=== PATIENT | male | born 1950 ===

== ENCOUNTER 2025-02-21 20:32 | Inpatient (IN) | payer MEDICARE, OTHER, SELFPAY ==
[2025-02-21] VITALS (7 sets, daily range): BP systolic 92–102; BP diastolic 62–82; BMI 29.4
[2025-02-21 20:57] LABS: Hematocrit 45.1 % (39.0-52.0); Hemoglobin 14.4 g/dL (13.0-18.0); Mean Corp Hgb Conc. 31.9 g/dL (33.0-37.0); Mean Corpuscular Volume 103.7 fL (80.0-94.0); Nucleated Red Blood Cells % 0 % (-); Platelet Count 260 10^3/uL (130-400); Red Cell Dist. Width 14.0 % (11.5-14.5)
[2025-02-21 21:01] LABS: INR 1.48; PT 18.2 Sec (11.4-14.6)
[2025-02-21 21:02] LABS: APTT 45.6 Sec (23.4-35.0)
[2025-02-21 21:17] LABS: ALT (SGPT) 55 U/L (0-50); AST (SGOT) 69 U/L (17-59); Albumin 4.1 g/dl (3.5-5.0); Alkaline Phosphatase 78 U/L (38-126); Blood Urea Nitrogen 28 mg/dl (9-20); Calcium 9.2 mg/dl (8.4-10.2); Carbon Dioxide 22 mmol/L (22-30); Chloride 110 mmol/L (98-107); Estimated Creatinine Clearance 59 ml/min; Glucose 127 mg/dl (70-99); HDL Cholesterol 46 mg/dl; Iron 64 ug/dl (49-181); LDL Cholesterol, Calculated 52 mg/dl; Magnesium 2.2 mg/dl (1.6-2.3); Potassium 4.7 mmol/L (3.5-5.1); Sodium 141 mmol/L (135-145); Total Protein 7.0 g/dl (6.3-8.2); Very Low Density Lipoprotein 17 mg/dl (0-30); eGFR > 60.00
[2025-02-21 21:26] LABS: Total Iron Binding Capacity 420 ug/dl (261-462)
[2025-02-21 21:51] LABS: Ferritin 64.3 ng/ml (17.9-464.0)
[2025-02-21] MEDS: CARDIZEM 125 IV (22:15)
[2025-02-21] MEDS: HEPARIN 25000 UNITS/250 ML IV (23:18)
--- NOTE | 2025-02-21 23:28 | PTCARENOTE ---
pt arrived into room 1 via EMS transfer from [facility] at approx 2030. Admission questions and med rec completed. pt oriented to room and call shaw. pt placed on tele monitor, Afib w/ HR 90's-110's. On cardizem gtt infusing at 5 mg/min. Current BP
99/72. pt denies any CP at this time. pt BECERRA w/ dry, frequent cough. On RA sating 100%. Ed Radha, CVPA made aware of pt in room. CVPA ordered Heparin gtt, initial rate infusing at 1000 units/hr--see JUN. Afib packet and education provided to pt
and spouse. SCD's applied to pt per order. Encouraged pt to call RN with any questions/concerns and for assistance ambulating; pt verbalizes understanding. Call shaw within reach.
[2025-02-22] VITALS (20 sets, daily range): BP systolic 92–120; BP diastolic 46–84; BMI 29.3
[2025-02-22 00:33] LABS: Urine Character Clear (Clear)
[2025-02-22 00:48] LABS: Urine Red Blood Cell 0-2 /HPF (0-2); Urine White Cell 0-2 /HPF (0-5)
[2025-02-22 00:49] LABS: Urine Squamous Cell 0-2 /LPF (Few)
[2025-02-22] MEDS: SYNTHROID 50 MCG PO (05:52)
[2025-02-22 06:06] LABS: APTT 130.4 Sec (23.4-35.0)
[2025-02-22 06:08] LABS: Hematocrit 40.8 % (39.0-52.0); Hemoglobin 13.4 g/dL (13.0-18.0); Mean Corp Hgb Conc. 32.8 g/dL (33.0-37.0); Mean Corpuscular Volume 101.2 fL (80.0-94.0); Platelet Count 239 10^3/uL (130-400); Red Cell Dist. Width 13.9 % (11.5-14.5)
[2025-02-22 06:25] LABS: ALT (SGPT) 53 U/L (0-50); AST (SGOT) 56 U/L (17-59); Albumin 3.7 g/dl (3.5-5.0); Alkaline Phosphatase 81 U/L (38-126); Blood Urea Nitrogen 27 mg/dl (9-20); Calcium 8.7 mg/dl (8.4-10.2); Carbon Dioxide 21 mmol/L (22-30); Chloride 112 mmol/L (98-107); Estimated Creatinine Clearance 65 ml/min; Glucose 114 mg/dl (70-99); Magnesium 2.0 mg/dl (1.6-2.3); Potassium 4.3 mmol/L (3.5-5.1); Sodium 141 mmol/L (135-145); Total Protein 6.4 g/dl (6.3-8.2); eGFR > 60.00
[2025-02-22] MEDS: FLUSH (NSS) 1 FLUSH IV (07:48)
[2025-02-22] MEDS: PROTONIX 40 MG PO (07:48)
[2025-02-22] MEDS: ASPIR LOW (ENTERIC COATED) 81 MG PO (07:48)
--- NOTE | 2025-02-22 07:50 | PTCARENOTE ---
The patient is aaox3, his vital signs are stable. Afib is noted on the monitor with HR fluctuating between 80s and 113. Heparin gtt is running at 900 units/hr. His diltiazem gtt is running at 10mg/hr. He has no complaints however he is visibly
dyspneic at rest. His RR is 38. He has scattered crackles BL 1/[address] up. He has a frequent dry cough. His , who is a retired RN, states that his breathing is much better than it was when he first arrived at [facility].
--- NOTE | 2025-02-22 08:12 | PTCARENOTE ---
HR's in the 100s, diltiazem gtt increased to 15mg/hr.
[2025-02-22] MEDS: LUMINAL 64.8 MG PO ×2 (08:47→20:18)
[2025-02-22 09:40] LABS: Glycohemoglobin (HgbA1c) 5.8 % (4.0-5.9)
--- NOTE | 2025-02-22 10:59 | CON.CAR ---
Addendum entered and electronically signed by Miki Saals MD 02/22/25 14:37:
I saw and evaluated the patient, and I provided the substantive portion of the medical decision making.
I reviewed and agree with the note by Ms Fuchs and it accurately reflects our care.
I personally performed the medical decision making of the this encounter and my assessment and plan is below:
Bicuspid AV mod to severe stenosis w/ possible endocarditis
- CTS consulted
- MERCEDES Monday for further eval
- ID consulted
HFpEF
- IV diuresis
AF
- rate control for now
- heparin gtt
Original Note:
Consultation
Consultation Request
Date/Time Consultation Requested: 02/22/2025 0800
Date/Time Consultation Performed: 02/22/2025 1100
Requesting Provider: Dr. Patel
Performing Provider: Dr. Salas
Reason for Consultation: enodcarditis
Medical History
-
History of Present Illness:
74-year-old male with COPD who developed weeks of progressive shortness of breath and cough. He was placed on outpatient antibiotics for concern for pneumonia. He was admitted to [facility] on February 20 with new onset atrial fibrillation with
RVR and CHF. MERCEDES was performed in preparation for cardioversion. He was noted to have a small mobile echodensity on the aortic valve with mod-severe aortic stenosis. He is now transferred to [facility].
Past Medical History
Past Medical History: Other (COPD, hypothyroidism, history of seizure disorder)
Social History
Tobacco: Former Smoker
Alcohol: None
Allergies / Home Medications
Allergy/AdvReac Type Severity Reaction Status Date / Time
No Known Allergies Allergy Unverified 02/21/25 14:54
�Medication �Instructions �Recorded �Confirmed �Type
albuterol 90 mcg/actuation aerosol 90 mcg inhalation Q4H SOB 02/21/25 02/21/25 History
inhaler
aspirin 81 mg tablet 81 mg PO DAILY 02/21/25 02/21/25 History
levothyroxine 50 mcg tablet 50 mcg PO DAILY 02/21/25 02/21/25 History
phenobarbital 64.8 mg tablet 64.8 mg PO BID 02/21/25 02/21/25 History
Physical Exam
Vital Signs
Temp Pulse Resp BP Pulse Ox
97.4 F 109 34 116/80 96
02/22/25 07:20 02/22/25 07:20 02/22/25 08:07 02/22/25 07:19 02/22/25 08:14
Lab Results
02/22/25 05:42
02/22/25 05:42
Physical Exam
General: Well Developed, Well Nourished and No Apparent Distress
Respiratory: Clear (decreased bases )
Cardiac: S1/S2 and Irregular Rhythm
Breast: Deferred by me
GI: Soft, Non Distended and Normal Bowel Sounds
Musculoskeletal: No Edema
Skin: Warm and Dry
Neuro: AO x 3
Impression / Plan
-
Mod-severe with echo density on MERCEDES:
-bicuspid valve
-continue work up
-CTS following
New AF RVR:
-initial plan was for cardioversion. Given AV issues it was not performed.
-Prior to transfer pt, Lovenox and warfarin ( CHADSVASC at least 2 ) as interactions with phenobarbital and other anticoagulants.
-now on IV heparin, IV dilitazem
Acute HFpEF:
-in setting of severe and AF RVR
-pt did receive IV lasix
COPD:
-former smoker
-Recent treatment with doxycycline for PNA
Data Reviewed
-
EKG: Tracing Personally Visualized and interpreted (EKG 02/22/25 AF 99 bpm, inferior infarct.)
Medical Tests (Nuc Med, Echo etc): Report Reviewed by me (Echo 02/21/25 LV mildly reduced EF 45-50%, mild MR,mild TR, AV bicuspid, severe , mild-mod AR, highly calcified echo density attached to valve. ) and Other (MERCEDES 02/21/25 No thrombus,
suggestion of rounded mobile echo density attached to AV , valve is severely restricted )
Labs: Labs Reviewed by me, Discussed with Physician and Discussed with Family
Old Records: Reviewed ([facility] records summarized as above. )
[2025-02-22] MEDS: CARDIZEM 125 IV ×2 (11:05→20:06)
--- NOTE | 2025-02-22 11:38 | CON.ID ---
Consultation
-
Date/Time Consultation Requested: 02/22/25 9:24
Date/Time Consultation Performed: 02/22/25 11:38
Requesting Provider: Benson IRWIN
Performing Provider: Dr Archer
Reason for Consultation: suspected AV endocarditis
Chief Complaint / Past History
Chief Complaint
valvular vegetation
History of Present Illness
Mr Lowery is a 74 year old male with COPD with several weeks of progressive shortness of breath and cough previously productive of scan white sputum now nonproductive. Reports that cough has been ongoing for about 3 weeks and is notably improved at
this time. He was started on doxycycline for possible pneumonia which he took for one day. He then presented to [facility] for palpitations found to have rapid heart rate and new Afib with RVR and chf. He reports no fevers, chills,
night sweats, or weight loss. At [facility] wbc count 8.9 with 75% neutrophils. CXR with opacity in the right base, possibly an infiltrate, small bilateral pleural effusions MERCEDES/CV was planned and showed a rounded mobile echodensity attached
to the aortic valve and valve restriction. No cardioversion was done. Three sets of blood cultures were ordered. Doxycycline was initially continued. Infectious Disease Dr Manuel saw the patient and stated low concern for endocarditis as no
systemic symptoms and recommended weekly blood cultures x3 to be done outpatient. He was not started on any other antibiotics
Since arrival here patient has been afebrile, BP overall stable, wbc 10.3, hgb 14.4, plt 260, no left shift, neutrophils 52%, cr initially 1.1 now 1.0, lactic acid 2.2, t bili 1.0, d bili 0.5, ast 69 and alt 55, ua without pyuria, blood cultures x2
are in progress, he has not received any antibiotics, ID is consulted for assistance with management.
Past History
Additional Past Medical History:
COPD, hypothyroidism, history of seizure disorder
Allergy History:
No Known Allergies Allergy (Unverified 02/21/25 14:54)
Social History
Tobacco: Former Smoker
Alcohol: Occasional
Employment: Employed
Family History
Family History: Not Pertinent
Review of Systems
Review of Systems
as per hpi
Vital Signs
Temp Pulse Resp BP Pulse Ox
97.4 F 109 34 116/80 96
02/22/25 07:20 02/22/25 07:20 02/22/25 08:07 02/22/25 07:19 02/22/25 08:14
Physical Exam
Physical Exam
Constitutional: No Acute Distress
Cardiovascular: Regular Rate and S1/S2; Negative Murmur or Rub
Pulmonary: Clear and Symmetric; Negative Wheezes, Rales or Rhonchi
Gastrointestinal: Soft, Non Tender, Non Distended and Normal Bowel Sounds
Extremities: Negative Splinter Hemorrhage or [place]ay Lesions
Skin: Warm and Dry; Negative Rash or Jaundice
Lab / Diagnostic Study Results
02/22/25 05:42
02/22/25 05:42
Abs Immat Gran (auto) 0.0 10^3/uL (0-0.05) 02/21/25 20:44
Absolute Neuts (auto) 5.4 10^3/uL (1.4-6.5) 02/21/25 20:44
Absolute Lymphs (auto) 3.1 10^3/uL (1.2-3.4) 02/21/25 20:44
Absolute Monos (auto) 1.7 10^3/uL (0.1-0.6) H 02/21/25 20:44
Absolute Basos (auto) 0.1 10^3/uL (0-0.2) 02/21/25 20:44
Immature Gran % 0.3 % (0-0.5) 02/21/25 20:44
Neutrophils % 52.2 % (42.2-75.2) 02/21/25 20:44
Lymphocytes % 30.4 % (20.5-51.1) 02/21/25 20:44
Monocytes % 16.2 % (1.7-9.3) H 02/21/25 20:44
Eosinophils % 0.2 % (0-6) 02/21/25 20:44
Basophils % 0.7 % (0-2) 02/21/25 20:44
PT 18.2 Sec (11.4-14.6) H 02/21/25 20:44
INR 1.48 02/21/25 20:44
Lactic Acid 2.2 mmol/L (0.7-2.0) H 02/22/25 05:42
Urine WBC 0-2 /HPF (0-5) 02/22/25 00:12
Ur Squamous Epith Cells 0-2 /LPF (Few) 02/22/25 00:12
Microbiology Results
Micro:
02/22/25 10:16 Blood Culture - Pending
Blood/Venous
02/22/25 09:37 Blood Culture - Pending
Blood/Venous
02/21/25 21:25 MRSA Screen - Pending
Nose
Assessment / Plan
Possible endocarditis
- blood cultures x2 sets are in progress, he did have recent doxycycline
- blood cultures were also done at [facility]
- overall history is less concerning for an infectious process,
- start vancomycin and ceftriaxone pending the cultures
- will follow up CT surgery plans
[2025-02-22 13:19] LABS: APTT 107.7 Sec (23.4-35.0)
--- NOTE | 2025-02-22 14:06 | HPS.HSE ---
Family Physician
-
Family Physician: Jannet Botello
Chief Complaint
-
transfer for evaluation of aortic valve surgery
History of Present Illness
Zev Lowery is a 74 year old male with past medical history significant for COPD, hypothyroidism and seizure disorder, initially experienced increasing shortness of breath and cough for approximately 3 weeks. He was seen by his primary
care provider and prescribed doxycycline. He took approximately a day and a half worth of medication prior to admission for new onset palpitations and worsening shortness of breath. Denied fever or chills. He was admitted to [facility]
on 02/20/25 and found to have new onset atrial fibrillation with rapid ventricular response and heart failure (BNP 768/trop 34-c/w demand ischemia). A MERCEDES was performed on 02/21/25 in anticipation of cardioversion and a mobile echodensity was
noted on the aortic valve (LCC) and planned cardioversion was aborted. IV Cardizem started for rate control and blood cultures drawn. Patient transferred to [facility] in the evening of 02/21/25 for aortic valve surgery evaluation. Patient currently
sitting in bed and mildly dyspneic with conversation. On system review, patient reports approx 3 month history of 'things sticking' when swallowing.
Pertinent negatives: Denies CVA/TIA, liver disease, GERD, chest surgery/radiation, kidney disease, DVT/PE, LE vein stripping, cancers
Medical History
Past Medical History
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
BPH; mild hearing loss)
Past Surgical History: Reports None
Social History
Tobacco: Former Smoker (quit 37 years ago)
Alcohol: Occasional
Drug: None
Personal:
Living: With Family
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
Family History
Family History: Not pertinent
Allergies / Home Medications
Allergies reflects when Allergies were last updated in [facility].
Home Medications with original date entered in [facility]
Allergy/Medication List:
Allergies
Allergy/AdvReac Type Severity Reaction Status Date / Time
penicillin G Allergy Unknown Unknown Verified 02/22/25 14:15
Home Medications
�Medication �Instructions �Recorded
albuterol 90 mcg/actuation aerosol 90 mcg inhalation Q4H SOB 02/21/25
inhaler
aspirin 81 mg tablet 81 mg PO DAILY 02/21/25
levothyroxine 50 mcg tablet 50 mcg PO DAILY 02/21/25
phenobarbital 64.8 mg tablet 64.8 mg PO BID 02/21/25
Review of Systems
-
History Source: Patient
A 12 point ROS was completed and negative except as noted: Yes
Constitutional: Reports No Symptoms
EENT: Reports Other (Gamez's Palsey-Left; occasional dysphagia)
Respiratory: Reports Trouble Breathing (approx 3 weeks)
Cardiac: Reports No Symptoms
Abdomen/GI: Reports No Symptoms
: Reports No Symptoms
Musculoskeletal: Reports No Symptoms
Skin: Reports No Symptoms
Neurological: Reports No Symptoms
Endocrine: Reports No Symptoms
Hematologic/Lymphatic: Reports No Symptoms
Psych: Reports Calm
Physical Exam
Vital Signs
Vital Signs
Temp Pulse Resp BP Pulse Ox
97.5 F 73 36 96/77 91
02/22/25 11:51 02/22/25 11:51 02/22/25 11:51 02/22/25 11:51 02/22/25 11:51
Physical Exam
General: Well Developed and Well Nourished
HEENT: NormoCephalic, Anicteric, Moist mucous membranes, Atraumatic, Good Dentition, PERRLA, [place] Conjunctivae, Nose Appears Normal, Ears Appear Normal and Hearing Impaired (hearing loss)
Respiratory: Decreased Breath Sounds (R>L base)
Cardiac: S1/S2 and Irregular Rhythm
Breast: N/A
GI: Soft, Non Tender, Non Distended, Normal Bowel Sounds, No Hepatosplenomegaly and No Hernias
Rectal: Deferred by Provider
Genito-urinary: Deferred by me
Musculoskeletal: No Clubbing, No Cyanosis and No Edema
Skin: Warm and Dry
Neuro: AO x 3 and Facial Droop (chronic mild left w/ left mild lid ptosis)
Hematologic/Lymphatic: No Lymphadenopathy
Psych: Calm and Intact Judgment/Insight
Laboratory Results
-
02/22/25 05:42
02/22/25 05:42
Laboratory Results
PT 18.2 Sec (11.4-14.6) H 02/21/25 20:44
INR 1.48 02/21/25 20:44
APTT 107.7 Sec (23.4-35.0) H 02/22/25 12:45
Lactic Acid 2.2 mmol/L (0.7-2.0) H 02/22/25 05:42
Total Bilirubin 1.0 mg/dl (0.2-1.3) 02/22/25 05:42
AST 56 U/L (17-59) 02/22/25 05:42
ALT 53 U/L (0-50) H 02/22/25 05:42
Alkaline Phosphatase 81 U/L (38-126) 02/22/25 05:42
Data Reviewed
-
Diagnostic Radiology: Report Reviewed by me and Discussed with Physician
CT Scan: Report Reviewed by me and Discussed with Physician
Medical Tests (Nuc Med, Echo, EKG etc): Report Reviewed by me and Discussed with Physician
Lab Data: Labs Reviewed by me and Discussed with Physician
[facility]
Impression/Plan
-
IMPRESSION: 74 year old male with new onset atrial fibrillation and incidental finding of aortic valve mobile density on pre-cardioversion MERCEDES
PLAN:
# Aortic valve mass
- Dr Patel spoke with patient/ regarding proposed AVR, [place], left atrial appendage clip this coming week pending review of diagnostics
- cardiology consult
- MERCEDES Monday
- CTA chest
- ID consult
- blood cultures
- empiric Vanco/Ceftriaxone
- initial lactate 2.2>repeat
-trend WBC/temp trend
# New onset atrial fibrillation
CHADs-VSc score: 2�points. Stroke risk was 2.2% per year in >90,000 patients (the [place] Atrial Fibrillation Cohort Study) and 2.9% risk of stroke/TIA/systemic embolism.
- rate control with IV cardizem
- IV Heparin
# Pleural effusion
- Lasix 40mg IV now
- trend CXR/O2 requirements
# COPD/former tobacco (quit 37 yrs ago)
- does not follow with a office director
- not on inhalers/Home O2
# Hx [place] palsey
- known mild left facial droop/lid ptosis-stable
# Seizure disorder
- continue home phenobarbital
# Hypothyroidism
- continue home levothyroxine
- check baseline TSH in AM
[2025-02-22] MEDS: FLUSH (NSS) 2 FLUSH IV ×3 (15:01→18:19)
[2025-02-22] MEDS: LASIX 40 MG IV (15:01)
[2025-02-22] MEDS: STERILE WATER FOR INJECTION 20 ML IV (15:08)
[2025-02-22] MEDS: ROCEPHIN 2000 MG IV (15:08)
[2025-02-22] MEDS: VANCOCIN 540 MG IV (18:19)
[2025-02-22 18:51] LABS: APTT 100.2 Sec (23.4-35.0)
--- NOTE | 2025-02-22 19:21 | PHA.VAN.IN ---
Assessment
- Assessment
Renal Function: Unknown baseline
Maximum Temperature: 97.7
Minimum Temperature: 97.4
Concomitant Antimicrobials: ceftriaxone 2 g q12
AUC Dosing Plan
- Dosing Variables
Dosing Weight (kg): 89.8
Dosing CrCl (ml/min): 65
Vd coefficient (L/kg): 0.7
- Empiric Dosing
Initial / Loading Dose: 2000mg 02/22 18:19
Maintenance Regimen: vanc 1000mg q12
Estimated AUC (mcg*h/mL): 561
Estimated Peak (mcg*h/mL): 31.6
Estimated Trough (mcg/ml): 16.6
Estimated Half Life (H): 11.9
- Monitoring
No levels ordered at this time: consider in the upcoming days
Pharmacokinetics Vancomycin I
- -
Patient Age: 74
Patient Sex: Male
Vancomycin Day #: 1
Indication: Endocarditis
Requesting Provider: Dr Archer
Pertinent Antimicrobial Allergies:
Allergies
penicillin G Allergy (Unknown, Verified 02/22/25 14:15)Unknown told was allergic as a child
Height / Weight:
Height 5 ft 9 in
Actual Weight 89.8 kg
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
- Vital Signs / Lab Results
Temp Pulse Resp BP Pulse Ox
97.7 F 102 30 113/52 95
02/22/25 15:13 02/22/25 19:00 02/22/25 15:13 02/22/25 18:19 02/22/25 15:13
Lab Results - Hematology
02/21/25 02/22/25
20:44 05:42
WBC 10.3 10.5
Lab Results - Chemistry
02/21/25 02/22/25
20:44 05:42
BUN 28 H 27 H
Creatinine 1.1 1.0
Estimated Creat Clear 59 65
Albumin 4.1 3.7
02/22/25 02/22/25
05:42 18:30
Lactic Acid 2.2 H 2.7 H
Lab Results - Urine
02/22/25
00:12
Urine Nitrite Negative
Ur Leukocyte Esterase Negative
Urine WBC 0-2
Ur Squamous Epith Cells 0-2
Urine Bacteria Few A
[2025-02-23] VITALS (7 sets, daily range): BP systolic 100–125; BP diastolic 59–90; BMI 29.3
[2025-02-23] MEDS: HEPARIN 25000 UNITS/250 ML IV (03:05)
[2025-02-23] MEDS: ROCEPHIN 2000 MG IV ×2 (03:29→16:07)
[2025-02-23] MEDS: STERILE WATER FOR INJECTION 20 ML IV ×2 (03:29→16:08)
[2025-02-23 03:37] LABS: Hematocrit 38.4 % (39.0-52.0); Hemoglobin 13.2 g/dL (13.0-18.0); Mean Corp Hgb Conc. 34.4 g/dL (33.0-37.0); Mean Corpuscular Volume 98.5 fL (80.0-94.0); Platelet Count 243 10^3/uL (130-400); Red Cell Dist. Width 13.6 % (11.5-14.5)
[2025-02-23 03:51] LABS: APTT 94.0 Sec (23.4-35.0)
[2025-02-23 03:59] LABS: Blood Urea Nitrogen 21 mg/dl (9-20); Calcium 8.6 mg/dl (8.4-10.2); Carbon Dioxide 23 mmol/L (22-30); Chloride 110 mmol/L (98-107); Estimated Creatinine Clearance 72 ml/min; Glucose 118 mg/dl (70-99); Magnesium 2.1 mg/dl (1.6-2.3); Potassium 3.8 mmol/L (3.5-5.1); Sodium 138 mmol/L (135-145); eGFR > 60.00
[2025-02-23] MEDS: CARDIZEM 125 IV (04:23)
[2025-02-23 04:33] LABS: TSH 3.07 uIU/ml (0.47-4.68)
--- NOTE | 2025-02-23 04:33 | PTCARENOTE ---
Pt AAOx3 and OSAGE bilaterally. Tele remains Afib w/ occasional PVCs. HR in the 80's at rest. IV Cardizem gtt infusing at 15ml/hr. IV Heparin gtt infusing at 900 units/hr. PTT remains therapeutic. Denies any pain or discomfort. RR in the 30's, pt
tachypnea. He denies SOB...pulse ox sating 93-95% RA. Has freq FINGER BUFF SEWER cough. Aware of POC. Call shaw in reach.
[2025-02-23] MEDS: KCL 20 MEQ PO ×2 (04:45→21:58)
[2025-02-23] MEDS: SYNTHROID 50 MCG PO (04:45)
--- NOTE | 2025-02-23 04:58 | W.PN.CT ---
Today's Communication / Plan
-
Plan:
-Ongoing preop workup
-Cont. current meds ( ASA, Heparin gtt, Cardizem gtt, Synthroid, Phenobarbital)
-Cont. antibiotics per ID, currently on Vancomycin and Rocephin, f/u blood cultures
-Repeat MERCEDES tomorrow 02/24/25
Assessment / Plan
-
Assessment:
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
-New onset A-fib with RVR
-Hx TIA/CVA
-Seizure disorder
-Hypothyroidism
-COPD
-Former tobacco use (quit 37 years ago)
-DVT/PE
-Transaminitis
-GERD
-S/P LE vein stripping
Discussed patient care with: Cardiology, Nursing, Respiratory Therapy, Pharmacy and Care Team
Subjective
-
Date of Service: February 23, 2025
Pt c/o mild SOB overnight. Denies CP
Objective Data
-
Lab Results
02/23/25 03:24
02/23/25 03:24
PT 18.2 Sec (11.4-14.6) H 02/21/25 20:44
INR 1.48 02/21/25 20:44
APTT 94.0 Sec (23.4-35.0) H 02/23/25 03:24
Vital Signs
Vital Signs
Temp Pulse Resp BP Pulse Ox
97.5 F 86 34 102/59 95
02/23/25 03:08 02/23/25 03:10 02/23/25 03:08 02/23/25 03:10 02/23/25 03:08
CT Intake/Output/Weight
02/22/25 02/22/25 02/23/25
06:59 18:59 06:59
Intake Total 720 / 720 1188 / 1188
Output Total 400 / 400 1065 / 1515 450 / 1515
Balance 320 / 320 -1065 / -327 738 / -327
SaO2: 95 (RA)
Physical Exam
-
General: Awake, Oriented and AOx3
Cardiovascular: Regular rate & rhythm, Murmur (3/6 systolic), No Rub and No Gallop
Respiratory: Decreased Breath Sounds (at bases, otherwise clear )
Sternum: Stable
Incision: Clean, Dry and Intact
Extremities: Other (+trace edema)
Data Reviewed
-
Lab Results: Results Reviewed
Medications: Active Meds Reviewed
Chest X-Ray: Report Reviewed and Image Reviewed
ECG: Report Reviewed and Image Reviewed
[2025-02-23] MEDS: VANCOCIN 200 IV ×2 (05:21→17:41)
[2025-02-23 05:24] LABS: ALT (SGPT) 49 U/L (0-50); AST (SGOT) 41 U/L (17-59); Albumin 3.6 g/dl (3.5-5.0); Alkaline Phosphatase 87 U/L (38-126); Total Protein 6.5 g/dl (6.3-8.2)
[2025-02-23] MEDS: PROTONIX 40 MG PO (09:08)
[2025-02-23] MEDS: LUMINAL 64.8 MG PO ×2 (09:09→19:42)
[2025-02-23] MEDS: ASPIR LOW (ENTERIC COATED) 81 MG PO (09:09)
[2025-02-23] MEDS: LASIX 40 MG IV (09:41)
[2025-02-23] MEDS: FLUSH (NSS) 1 FLUSH IV ×2 (09:41→16:08)
--- NOTE | 2025-02-23 11:21 | PTCARENOTE ---
received patient this am in bed, monitor shows Afib, HR in the 80's. BP stable, voices no complaints. IV Cardizem @ 15cc/hr via left ac and IV heparin @ 900 units/hr via right forearm without difficulties. lung gill diminished with freq. dry
cough, stated he has always had that. on RA , o2 sat 94%. lasix 40mg IV given as ordered, patient diuresing well.
--- NOTE | 2025-02-23 12:00 | W.PN.ID1 ---
Date of Service
Date of Service: February 23, 2025
Today's Communication
- continue vancomycin and ceftriaxone pending the cultures
- possible SAVR this week, please send valve tissue for culture
Assessment / Plan
Possible endocarditis
- blood cultures x2 sets are in progress, he did have recent doxycycline
- blood cultures were also done at [facility]
- overall history is less concerning for an infectious process,
- continue vancomycin and ceftriaxone pending the cultures
- possible SAVR this week, please send valve tissue for culture
Chief Complaint
-: Other (possible endocarditis)
Subjective / Review of Systems
afebrile
bp stable
no complaints
Vital Signs / Physical Exam
Vital Signs
Vital Signs
Temp Pulse Resp BP Pulse Ox
97.2 F 89 20 100/67 94
02/23/25 10:45 02/23/25 11:00 02/23/25 10:45 02/23/25 10:45 02/23/25 10:45
Physical Exam
Constitutional: No Acute Distress
Cardiovascular: Regular Rate and S1/S2; Negative Murmur or Rub
Pulmonary: Clear and Symmetric; Negative Wheezes or Rales
Gastrointestinal: Soft, Non Tender, Non Distended and Normal Bowel Sounds
Skin: Warm and Dry; Negative Rash or Jaundice
Objective Data
Lab Data
Lab Results
02/23/25 03:24
02/23/25 03:24
PT 18.2 Sec (11.4-14.6) H 02/21/25 20:44
INR 1.48 02/21/25 20:44
APTT 94.0 Sec (23.4-35.0) H 02/23/25 03:24
Estimated Creat Clear 72 ml/min 02/23/25 03:24
Lactic Acid 1.7 mmol/L (0.7-2.0) 02/23/25 03:24
Total Bilirubin 0.8 mg/dl (0.2-1.3) 02/23/25 03:24
AST 41 U/L (17-59) 02/23/25 03:24
ALT 49 U/L (0-50) 02/23/25 03:24
Alkaline Phosphatase 87 U/L (38-126) 02/23/25 03:24
Most recent labs reviewed.
Micro Results:
02/22/25 10:16 Blood Culture - Preliminary
Blood/Venous No Growth in 24 hours- Final report to follow
02/22/25 09:37 Blood Culture - Preliminary
Blood/Venous No Growth in 24 hours- Final report to follow
02/21/25 21:25 MRSA Screen - Final
Nose No Methicillin Resistant Staphylococcus aureus isolated.
--- NOTE | 2025-02-23 13:09 | W.PN.CD ---
Addendum entered and electronically signed by Miki Salas MD 02/23/25 13:19:
Plan is just for MERCEDES tomorrow not coronary angiography
Original Note:
Today's Communication / Plan
-
IV Lasix today
N.p.o. after midnight for MERCEDES and coronary angiography tomorrow
Stop Dilt drip start Dilt 90 mg 3 times daily
Impression / Plan
-
Bicuspid aortic valve with mod-severe aortic stenosis with echo density on MERCEDES possible mobile calcium:
-bicuspid valve
-continue work up
-CTS following --> MERCEDES and coronary angiography tomorrow
- N.p.o. after midnight
New AF RVR:
-initial plan was for cardioversion. Given AV issues it was not performed.
-Prior to transfer pt, Lovenox and warfarin ( CHADSVASC at least 2 ) as interactions with phenobarbital and other anticoagulants.
-now on IV heparin, transition from Dilt drip to Dilt 90 mg 3 times daily
Acute HFpEF:
-in setting of severe and AF RVR
- Continue IV Lasix for today reassess need tomorrow
COPD:
-former smoker
-Recent treatment with doxycycline for PNA
Subjective: Patient breathing improved
Physical Exam
Vital Signs/Labs
Vital Signs
Temp Pulse Resp BP Pulse Ox
97.2 F 90 20 100/67 94
02/23/25 10:45 02/23/25 12:00 02/23/25 10:45 02/23/25 10:45 02/23/25 10:45
02/22/25 02/23/25 02/24/25
06:59 06:59 06:59
Actual Weight 197 lb 15.602 oz 198 lb 3.129 oz
02/23/25 03:24
02/23/25 03:24
PT 18.2 Sec (11.4-14.6) H 02/21/25 20:44
INR 1.48 02/21/25 20:44
APTT 94.0 Sec (23.4-35.0) H 02/23/25 03:24
Magnesium 2.1 mg/dl (1.6-2.3) 02/23/25 03:24
Triglycerides 86 mg/dl (10-149) 02/21/25 20:44
LDL Cholesterol, Calc 52 mg/dl 02/21/25 20:44
VLDL Cholesterol, Calc 17 mg/dl (0-30) 02/21/25 20:44
HDL Cholesterol 46 mg/dl 02/21/25 20:44
TSH 3.07 uIU/ml (0.47-4.68) 02/23/25 03:24
Physical Exam
Constitutional: No acute distress and Comfortable
EENT: Anicteric
Cardiovascular: Rhythm/rate is irregular and Systolic murmur present
Respiratory: Respiratory effort normal and Crackles Present
GI: Soft
Neuro/Psych: AO x 3
Data Reviewed
-
Date of Service: February 23, 2025
EKG: Tracing Personally Visualized and interpreted (A-fib)
Echo: Report Reviewed by me
Labs: Labs Reviewed by me
[2025-02-23] MEDS: CARDIZEM 90 MG PO ×2 (13:42→21:58)
--- NOTE | 2025-02-23 13:44 | PTCARENOTE ---
IV Cardizem off and po given.
--- NOTE | 2025-02-23 13:59 | PHA.VAN.FU ---
Vancomycin Assessment / Plan
- Assessment
Renal Function: Stable
WBC's are: Trending Up
In the past 24 hrs, patient has been: Afebrile
Concomitant Antimicrobials: Ceftriaxone
- Dosing Plan
Continue: 1000mg Q12H
- Monitoring Plan
No level(s) ordered at this time: Consider levels in next few days
- Follow Up
Pharmacy will continue to follow.
Vancomycin Follow UP
- -
Patient Age: 74
Patient Sex: Male
Vancomycin Day #: 2
Indication: Endocarditis
Requesting Provider: Dr Archer
Pertinent Antimicrobial Allergies:
Allergies
penicillin G Allergy (Unknown, Verified 02/22/25 14:15)Unknown told was allergic as a child
Height / Weight:
Height 5 ft 9 in
Actual Weight 89.9 kg
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
- Vital Signs / Lab Results
Temp Pulse Resp BP Pulse Ox
97.2 F 99 20 119/77 94
02/23/25 10:45 02/23/25 13:42 02/23/25 10:45 02/23/25 13:42 02/23/25 10:45
Lab Results - Hematology
02/21/25 02/22/25 02/23/25
20:44 05:42 03:24
WBC 10.3 10.5 12.2 H
Lab Results - Chemistry
02/21/25 02/22/25 02/23/25
20:44 05:42 03:24
BUN 28 H 27 H 21 H
Creatinine 1.1 1.0 0.9
Estimated Creat Clear 59 65 72
Albumin 4.1 3.7 3.6
02/22/25 02/22/25 02/23/25
05:42 18:30 03:24
Lactic Acid 2.2 H 2.7 H 1.7
Microbiology Results
10/25/25 10:16 Blood Culture - Preliminary
Blood/Venous No Growth in 24 hours- Final report to follow
02/22/25 09:37 Blood Culture - Preliminary
Blood/Venous No Growth in 24 hours- Final report to follow
02/21/25 21:25 MRSA Screen - Final
Nose No Methicillin Resistant Staphylococcus aureus isolated.
--- NOTE | 2025-02-23 20:18 | PTCARENOTE ---
Pt rec'd oob in recliner chair talking with son. No c/o pain. + non productive cough noted. Afib on telemetry. Pt aware of npo status after mn for MERCEDES in am. Heparin gtt therapeutic at 9 cc/hr.
[2025-02-24] VITALS (14 sets, daily range): BP systolic 89–136; BP diastolic 60–84; BMI 28.9
--- NOTE | 2025-02-24 01:06 | W.PN.CT ---
Today's Communication / Plan
-
Plan:
-Ongoing preop workup
-Cont. current meds ( ASA, Heparin gtt, Cardizem gtt, Synthroid, Phenobarbital)
-Cont. antibiotics per ID, currently on Vancomycin and Rocephin, f/u blood cultures
-Repeat MERCEDES today, 02/24/25
Assessment / Plan
-
Assessment:
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
-New onset A-fib with RVR
-Hx TIA/CVA
-Seizure disorder
-Hypothyroidism
-COPD
-Former tobacco use (quit 37 years ago)
-DVT/PE
-Transaminitis
-GERD
-S/P LE vein stripping
Discussed patient care with: Cardiology, Nursing, Respiratory Therapy, Pharmacy and Care Team
Subjective
-
Date of Service: February 24, 2025
No major issues overnight. Denies CP/SOB
Objective Data
-
PT 18.2 Sec (11.4-14.6) H 02/21/25 20:44
INR 1.48 02/21/25 20:44
APTT 94.0 Sec (23.4-35.0) H 02/23/25 03:24
Vital Signs
Vital Signs
Temp Pulse Resp BP Pulse Ox
98.2 F 114 24 125/70 97
02/23/25 22:00 02/23/25 21:00 02/23/25 22:00 02/23/25 22:00 02/23/25 22:00
CT Intake/Output/Weight
02/23/25 02/23/25 02/24/25
06:59 18:59 06:59
Intake Total 1188 / 1188 878 / 878
Output Total 450 / 1515 2450 / 2450
Balance 738 / -327 -1572 / -1572
SaO2: 97 (RA)
Physical Exam
-
General: Awake, Oriented and AOx3
Cardiovascular: Irregular rate & rhythm and Murmur (2-3/6 systolic )
Respiratory: Decreased Breath Sounds (at bases, otherwise clear)
Sternum: Stable
Incision: Clean, Dry, Intact and Dressing Intact
Extremities: Other (+trace)
Data Reviewed
-
Lab Results: Results Reviewed
Medications: Active Meds Reviewed
Chest X-Ray: Report Reviewed and Image Reviewed
ECG: Report Reviewed and Image Reviewed
--- NOTE | 2025-02-24 02:20 | PTCARENOTE ---
When pt is oob to br ht rate 120-140's afib. Pt denies feeling palpitation or being sob, but pt is obviously winded with exertion with RR 28-32
[2025-02-24] MEDS: ROCEPHIN 2000 MG IV ×2 (04:00→16:09)
[2025-02-24] MEDS: STERILE WATER FOR INJECTION 20 ML IV ×2 (04:01→16:09)
[2025-02-24 04:58] LABS: Hematocrit 41.7 % (39.0-52.0); Hemoglobin 14.1 g/dL (13.0-18.0); Mean Corp Hgb Conc. 33.8 g/dL (33.0-37.0); Mean Corpuscular Volume 97.9 fL (80.0-94.0); Platelet Count 277 10^3/uL (130-400); Red Cell Dist. Width 13.6 % (11.5-14.5)
[2025-02-24 05:07] LABS: APTT 39.6 Sec (23.4-35.0)
--- NOTE | 2025-02-24 05:08 | PTCARENOTE ---
Pt still with freq dry cough. Afib on telemetry with rates as high as 140 with ambulation into bathroom. Pt denies palpitations. + BECERRA.
Remains npo for MERCEDES.
[2025-02-24] MEDS: HEPARIN 25000 UNITS/250 ML IV ×2 (05:16→23:53)
[2025-02-24 05:18] LABS: Blood Urea Nitrogen 15 mg/dl (9-20); Calcium 8.8 mg/dl (8.4-10.2); Carbon Dioxide 23 mmol/L (22-30); Chloride 108 mmol/L (98-107); Estimated Creatinine Clearance 72 ml/min; Glucose 104 mg/dl (70-99); Magnesium 2.1 mg/dl (1.6-2.3); Potassium 4.3 mmol/L (3.5-5.1); Sodium 139 mmol/L (135-145); eGFR > 60.00
[2025-02-24] MEDS: VANCOCIN 200 IV ×2 (05:18→17:28)
[2025-02-24] MEDS: SYNTHROID 50 MCG PO (05:24)
[2025-02-24] MEDS: CARDIZEM 90 MG PO ×3 (08:23→23:53)
[2025-02-24] MEDS: PROTONIX 40 MG PO (08:24)
[2025-02-24] MEDS: ASPIR LOW (ENTERIC COATED) 81 MG PO (08:24)
[2025-02-24] MEDS: LUMINAL 64.8 MG PO ×2 (08:24→20:55)
--- NOTE | 2025-02-24 08:32 | PHA.VAN.FU ---
Vancomycin Assessment / Plan
- Assessment
Renal Function: Stable
WBC's are: WNL
In the past 24 hrs, patient has been: Afebrile
Concomitant Antimicrobials: ceftriaxone
- Dosing Plan
Continue: Vanc 1000mg Q12H
- Monitoring Plan
No level(s) ordered at this time: consider levels in next few days
may be difficult to schedule levels over next couple days - MERCEDES planned for tonight and CVOR for tomorrow - will re-assess daily
- Follow Up
Pharmacy will continue to follow.
Vancomycin Follow UP
- -
Patient Age: 74
Patient Sex: Male
Vancomycin Day #: 3
Indication: Endocarditis
Requesting Provider: Dr Archer
Pertinent Antimicrobial Allergies:
penicillin G - Unknown told was allergic as a child
Height / Weight:
Height 5 ft 9 in
Actual Weight 88.6 kg
Pertinent Past Medical History: BMI ~29
- Vital Signs / Lab Results
Temp Pulse Resp BP Pulse Ox
97.7 F 126 22 105/70 97
02/24/25 07:20 02/24/25 08:23 02/24/25 07:20 02/24/25 08:23 02/24/25 07:20
Lab Results - Hematology
02/21/25 02/22/25 02/23/25
20:44 05:42 03:24
WBC 10.3 10.5 12.2 H
02/24/25
04:11
WBC 10.6
Lab Results - Chemistry
02/21/25 02/22/25 02/23/25
20:44 05:42 03:24
BUN 28 H 27 H 21 H
Creatinine 1.1 1.0 0.9
Estimated Creat Clear 59 65 72
Albumin 4.1 3.7 3.6
02/24/25
04:11
BUN 15
Creatinine 0.9
Estimated Creat Clear 72
Albumin
02/22/25 02/22/25 02/23/25
05:42 18:30 03:24
Lactic Acid 2.2 H 2.7 H 1.7
Microbiology Results
02/22/25 10:16 Blood Culture - Preliminary
Blood/Venous No Growth in 24 hours- Final report to follow
02/22/25 09:37 Blood Culture - Preliminary
Blood/Venous No Growth in 24 hours- Final report to follow
02/21/25 21:25 MRSA Screen - Final
Nose No Methicillin Resistant Staphylococcus aureus isolated.
--- NOTE | 2025-02-24 08:48 | PTCARENOTE ---
received patient this am in bed, extremely NEZ PERCE, monitors shows Afib, HR 113, IV heparin @ 1100units/hr via left ant. site is good. patient is NPO for MERCEDES today, a m medications given. patient went to U/S carotids via stretcher accompanied by vol.
services.
--- NOTE | 2025-02-24 09:06 | W.PN.CD ---
Today's Communication / Plan
-
Dilt 90 q6h
MERCEDES today
Impression / Plan
-
Bicuspid aortic valve with mod-severe aortic stenosis with echo density on MERCEDES possible mobile calcium:
-MERCEDES today
-CTS following --> MERCEDES
- N.p.o. after midnight
New AF RVR:
-initial plan was for cardioversion. Given AV issues it was not performed.
-Prior to transfer pt, Lovenox and warfarin ( CHADSVASC at least 2 ) as interactions with phenobarbital and other anticoagulants.
-now on IV heparin, Increase dilt to 90 q6hrs
Acute HFpEF:
-in setting of severe and AF RVR
- improved after IV lasix consider 40 mg MWF
COPD:
-former smoker
-Recent treatment with doxycycline for PNA
Subjective: Patient breathing improved MERCEDES today
Physical Exam
Vital Signs/Labs
Vital Signs
Temp Pulse Resp BP Pulse Ox
97.7 F 113 22 105/70 95
02/24/25 07:20 02/24/25 09:00 02/24/25 07:20 02/24/25 08:23 02/24/25 08:30
02/23/25 02/24/25 02/25/25
06:59 06:59 06:59
Actual Weight 198 lb 3.129 oz 195 lb 5.273 oz
02/24/25 04:11
02/24/25 04:11
PT 18.2 Sec (11.4-14.6) H 02/21/25 20:44
INR 1.48 02/21/25 20:44
APTT 39.6 Sec (23.4-35.0) H 02/24/25 04:11
Magnesium 2.1 mg/dl (1.6-2.3) 02/24/25 04:11
Triglycerides 86 mg/dl (10-149) 02/21/25 20:44
LDL Cholesterol, Calc 52 mg/dl 02/21/25 20:44
VLDL Cholesterol, Calc 17 mg/dl (0-30) 02/21/25 20:44
HDL Cholesterol 46 mg/dl 02/21/25 20:44
TSH 3.07 uIU/ml (0.47-4.68) 02/23/25 03:24
Physical Exam
Constitutional: No acute distress
EENT: Anicteric
Cardiovascular: Pedal edema is absent and Rhythm/rate is irregular
Respiratory: Respiratory effort normal and Lungs clear to auscul.
GI: Soft
Neuro/Psych: AO x 3
Data Reviewed
-
Date of Service: February 24, 2025
EKG: Tracing Personally Visualized and interpreted (af)
Labs: Labs Reviewed by me
--- NOTE | 2025-02-24 10:32 | CM ---
Chart reviewed. Patient is independent of ADLS, lives with his in a [address], 2 DESMOND, 0 DME. Plan is for the patient to return home. CM to follow
--- NOTE | 2025-02-24 11:39 | W.PN.ID1 ---
Date of Service
Date of Service: February 24, 2025
Today's Communication
- MERCEDES pending
- continue vancomycin and ceftriaxone pending the cultures
- SAVR tomorrow, please send valve tissue for culture and pathology
Assessment / Plan
Possible endocarditis
- blood cultures x2 sets are in progress, he did have recent doxycycline
- blood cultures were also done at [facility] - called and spoke with [facility] lab - 02/21 blood cultures are no growth at 3 days
- overall history is less concerning for an infectious process,
- MERCEDES pending
- continue vancomycin and ceftriaxone pending the cultures
- SAVR tomorrow, please send valve tissue for culture and pathology
-
Chief Complaint
-: Other (possible endocarditis)
Subjective / Review of Systems
remains afebrile
bp stable
no complaints
MERCEDES pending
Vital Signs / Physical Exam
Vital Signs
Vital Signs
Temp Pulse Resp BP Pulse Ox
97.7 F 113 22 105/70 95
02/24/25 07:20 02/24/25 09:00 02/24/25 07:20 02/24/25 08:23 02/24/25 08:30
Physical Exam
Constitutional: No Acute Distress
Cardiovascular: Regular Rate and S1/S2; Negative Murmur or Rub
Pulmonary: Clear and Symmetric; Negative Wheezes or Rales
Gastrointestinal: Soft, Non Tender, Non Distended and Normal Bowel Sounds
Skin: Warm and Dry; Negative Rash or Jaundice
Objective Data
Lab Data
Lab Results
02/24/25 04:11
02/24/25 04:11
PT 18.2 Sec (11.4-14.6) H 02/21/25 20:44
INR 1.48 02/21/25 20:44
APTT 39.6 Sec (23.4-35.0) H 02/24/25 04:11
Estimated Creat Clear 72 ml/min 02/24/25 04:11
Lactic Acid 1.7 mmol/L (0.7-2.0) 02/23/25 03:24
Total Bilirubin 0.8 mg/dl (0.2-1.3) 02/23/25 03:24
AST 41 U/L (17-59) 02/23/25 03:24
ALT 49 U/L (0-50) 02/23/25 03:24
Alkaline Phosphatase 87 U/L (38-126) 02/23/25 03:24
Most recent labs reviewed.
Micro Results:
02/22/25 10:16 Blood Culture - Preliminary
Blood/Venous No Growth in 48 hours- Final report to follow
02/22/25 09:37 Blood Culture - Preliminary
Blood/Venous No Growth in 48 hours- Final report to follow
02/21/25 21:25 MRSA Screen - Final
Nose No Methicillin Resistant Staphylococcus aureus isolated.
--- NOTE | 2025-02-24 12:13 | W.PN.UPDATE ---
Addendum entered and electronically signed by Giancarlo Allen MD 02/24/25 15:02:
CARDIAC SURGERY ATTENDING:
I had a long conversation at bedside with Mr. Zev LoweryJr. and his . I have reviewed his medical history and available imaging studies. Given the mobile component on his aortic valve, I believe that preoperative cardiac catheterization
presents more risk than potential benefit. While he does have some coronary calcifications on his CT scan, it is my hope that there is not any significant occult coronary artery disease.
I recommended AVR with biologic valve replacement, encompass maze procedure, and exclusion of the left atrial appendage. We discussed the operative procedures in great detail, reviewed the periprocedural risks (including, but not limited to, ,
stroke, IN, arrhythmia, PPM requirement, PNA, TAY/F, bleeding, and infection), discussed the expected in-hospital postprocedural course, and reviewed the expected outpatient recovery. All questions were answered to the best of my ability. The
patient is agreeable to proceed. He is tentatively scheduled for operation tomorrow 02/25/2025 with planned start time late morning/early afternoon. I assured his that we would not take him to the operating room prior to her arrival in the
morning.
Thank you for the opportunity to participate in the care of this kind gentleman.
Giancarlo Allen MD
[phone]
Original Note:
Update Note
Progress Note Update
STS Risk Calculation:
Procedure Type:�Isolated AVR
Perioperative Outcome Estimate %
Operative Mortality 1.5%
Morbidity & Mortality 8.45%
Stroke 1.43%
Renal Failure 1.28%
Reoperation 4.04%
Prolonged Ventilation 4.74%
Deep Sternal Wound Infection 0.09%
Long Hospital Stay (>14 days) 4.94%
Short Hospital Stay (<6 days)* 33.3%
Clinical Summary
Planned Surgery: Isolated AVR, Urgent, First cardiovascular surgery
Demographics: 74 year old, male, 89.8kg, 175cm, BMI: 29.3 kg/m�
Lab Values: Creatinine: 0.9 mg/dL, Hematocrit: 41.7%, WBC Count: 10.6 10�/�L, Platelet Count: 359329 cells/�L
Substance Abuse: Former smoker, Alcohol use: <=1 drink/week
Pulmonary RF: Mild CLD
Vascular RF: Cerebrovascular Disease: TIA
Cardiac Status: Acute heart failure
Valve Disease: Aortic Stenosis, Moderate AR, Mild MR, Mild TR
Arrhythmia: Recent A-fib, Unknown
[2025-02-24] MEDS: CARDIZEM PO (12:46)
[2025-02-24 14:26] LABS: APTT 102.7 Sec (23.4-35.0)
--- NOTE | 2025-02-24 14:52 | PTCARENOTE ---
ABO2 drawn and sent to lab.
--- NOTE | 2025-02-24 15:02 | CM ---
Preoperative and postoperative instructions and restrictions provided to the patient. Also reviewed showering guidelines. Patient is agreeable to a visit by CT Transitional RN. Gave patient Cardiac Surgery Book. Patient is independent of ADLS,
lives with his , 2 S[address], 2 DESMOND, 0 DME. Plan is for the patient to return home with CT Transitional RN. Patient's address is [address] [place] [address] [place], [facility] [address]
[2025-02-24] MEDS: FLUSH (NSS) 1 FLUSH IV (16:09)
--- NOTE | 2025-02-24 18:31 | PTCARENOTE ---
vancomycin infused, noticed right forearm IV reddened, D/C'd INT.
[2025-02-24 21:00] LABS: APTT 100.7 Sec (23.4-35.0)
--- NOTE | 2025-02-24 21:30 | PTCARENOTE ---
Patient arrived to room 2260 from IVU without difficulty. OOB in chair. Family at bedside. Patient A+A+Ox3. No neurological deficits noted. No c/o headache, dizziness or lightheadedness. Room air. SpO2 97%. Atrial Fibrillation. Heart rate
100-130's. Patient with no c/o chest pain, pressure, palpitations or discomfort. Bowel and bladder within normal limits. Positive, palpable pulses. No edema. IV Heparin gtt - Infusing at 1100 units/hr (11 ml/hr). PTT result 100.7 - Therapeutic
range. No s/s of IV Heparin related complications. Patient with no c/o back or flank pain. Patient clipped and prepped per protocol. 4% Chlorhexidine bath. Assessment as documented.
[2025-02-25] VITALS (16 sets, daily range): BP systolic 75–127; BP diastolic 54–109; BMI 28.3
--- NOTE | 2025-02-25 | PTCARENOTE ---
NPO after midnight. Patient voided 300 ml yellow urine in bathroom. Ambulates without difficulty. Atrial Fibrillation. Heart rate 130-150's when ambulating. Patient with harsh, nonproductive cough with activity. No c/o SOB. No c/o chest pain,
pressure, palpitations or discomfort. Back to bed. Assessment as documented.
[2025-02-25] MEDS: STERILE WATER FOR INJECTION 20 ML IV ×2 (03:42→18:31)
[2025-02-25] MEDS: ROCEPHIN 2000 MG IV ×2 (03:42→18:31)
[2025-02-25 04:48] LABS: Hematocrit 40.3 % (39.0-52.0); Hemoglobin 13.6 g/dL (13.0-18.0); Mean Corp Hgb Conc. 33.7 g/dL (33.0-37.0); Mean Corpuscular Volume 96.9 fL (80.0-94.0); Platelet Count 280 10^3/uL (130-400); Red Cell Dist. Width 13.4 % (11.5-14.5)
[2025-02-25] MEDS: VANCOCIN 200 IV ×2 (04:56→18:31)
[2025-02-25 05:00] LABS: APTT 110.5 Sec (23.4-35.0)
[2025-02-25 05:44] LABS: Blood Urea Nitrogen 17 mg/dl (9-20); Calcium 8.5 mg/dl (8.4-10.2); Carbon Dioxide 23 mmol/L (22-30); Chloride 105 mmol/L (98-107); Estimated Creatinine Clearance 72 ml/min; Glucose 117 mg/dl (70-99); Magnesium 2.1 mg/dl (1.6-2.3); Potassium 4.3 mmol/L (3.5-5.1); Sodium 137 mmol/L (135-145); eGFR > 60.00
[2025-02-25] MEDS: BACTROBAN 2% OINTMENT 1 APPLIC NASAL ×2 (06:11→20:14)
[2025-02-25] MEDS: LOPRESSOR 25 MG PO (06:12)
[2025-02-25] MEDS: SYNTHROID 50 MCG PO (06:13)
[2025-02-25] MEDS: CARDIZEM 90 MG PO (06:13)
[2025-02-25] MEDS: PROTONIX 40 MG PO (06:13)
[2025-02-25] MEDS: MAGNESIUM OXIDE 400 MG PO (06:14)
--- NOTE | 2025-02-25 06:20 | PTCARENOTE ---
Patient A+A+Ox3. No neurological deficits noted. No c/o pain or discomfort. Second 4% Chlorhexidine bath given. CHG wipes. Linens and leads changed. Patient ambulates to bathroom by self. Steady gait. AM labs collected and sent. PTT 110.5.
IV Heparin gtt rate continues at 1,100 units/hr (11 ml/hr). 0600 Medications administered. Pre-Op medications administered. Patient resting in bed. Assessment/Interventions as documented.
--- NOTE | 2025-02-25 08:00 | PTCARENOTE ---
pt received from previous RN, oriented, [facility]. in bed. A-fib on the monitor, HR 80-100s. SBP 100s. palpable pulses. pt on RA, 91-92% POX. +harsh PASTRY ARTIST cough. pt abdomen s/n, denies n/v. NPO for OR. voids. PIV x2. heparin gtt running as ordered. previous
shift clipped and prepped pt for OR and gave pre op meds. at bedside. see worklist for VS, I&O, and assessment.
[2025-02-25] MEDS: ASPIR LOW (ENTERIC COATED) PO (08:38)
[2025-02-25] MEDS: PROTONIX PO (08:38)
--- NOTE | 2025-02-25 08:46 | W.PN.ID1 ---
Date of Service
Date of Service: February 25, 2025
Today's Communication
- overall history is less concerning for an infectious process, most consistent with mobile calcium deposit - will follow up pathology
- continue vancomycin and ceftriaxone pending the pathology and cultures
Assessment / Plan
Possible endocarditis
Bicuspid AV with dense calcification
Severe
- blood cultures x2 sets are in progress, he did have recent doxycycline
- blood cultures were also done at [facility] - called and spoke with [facility] lab 02/24 - 02/21 blood cultures are no growth at 3 days
- overall history is less concerning for an infectious process, most consistent with mobile calcium deposit - will follow up pathology
- continue vancomycin and ceftriaxone pending the pathology and cultures
- SAVR, please send valve tissue for culture and pathology
-
Chief Complaint
-: Other (possible endocarditis)
Subjective / Review of Systems
afebrile
bp stable
Vital Signs / Physical Exam
Vital Signs
Vital Signs
Temp Pulse Resp BP Pulse Ox
98 F 87 18 101/72 92
02/25/25 08:00 02/25/25 08:26 02/24/25 23:50 02/25/25 08:26 02/25/25 08:00
Physical Exam
Constitutional: No Acute Distress
Cardiovascular: Regular Rate and S1/S2; Negative Murmur or Rub
Pulmonary: Clear and Symmetric; Negative Wheezes or Rales
Gastrointestinal: Soft, Non Tender, Non Distended and Normal Bowel Sounds
Skin: Warm and Dry; Negative Rash or Jaundice
Objective Data
Lab Data
Lab Results
02/25/25 04:36
02/25/25 04:36
PT 18.2 Sec (11.4-14.6) H 02/21/25 20:44
INR 1.48 02/21/25 20:44
APTT 110.5 Sec (23.4-35.0) H 02/25/25 04:36
Estimated Creat Clear 72 ml/min 02/25/25 04:36
Lactic Acid 1.7 mmol/L (0.7-2.0) 02/23/25 03:24
Total Bilirubin 0.8 mg/dl (0.2-1.3) 02/23/25 03:24
AST 41 U/L (17-59) 02/23/25 03:24
ALT 49 U/L (0-50) 02/23/25 03:24
Alkaline Phosphatase 87 U/L (38-126) 02/23/25 03:24
Most recent labs reviewed.
Micro Results:
02/22/25 10:16 Blood Culture - Preliminary
Blood/Venous No Growth in 48 hours- Final report to follow
02/22/25 09:37 Blood Culture - Preliminary
Blood/Venous No Growth in 48 hours- Final report to follow
02/21/25 21:25 MRSA Screen - Final
Nose No Methicillin Resistant Staphylococcus aureus isolated.
[2025-02-25] MEDS: LUMINAL 64.8 MG PO (08:49)
--- NOTE | 2025-02-25 08:50 | CM ---
pt in OR today, cm following
--- NOTE | 2025-02-25 12:02 | PTCARENOTE ---
pt VSS, heparin gtt disconnected yard goods salesperson to OR. pt sent to CVOR w/ ANDRZEJ Dos Santos.
--- NOTE | 2025-02-25 12:13 | W.CVOR.SURPR ---
CVOR Surgeon Immed Pre Op
-
I have examined this patient prior to performance of the scheduled procedure.
The patient's condition is unchanged from the time of the dictated/written History and
Physical and the patient is able to undergo the scheduled procedure.
[2025-02-25 12:23] LABS: ACT+ - POC 151 Seconds (82-134)
[2025-02-25 12:45] LABS: Urine Character Clear (Clear)
[2025-02-25 12:50] LABS: B.E. - POC -3.2 mmol/L; Glucose - POC 111 mg/dl (70-99); HCO3 - POC 21 mmol/L (21-28); Hematocrit - POC 39 % PCV (42-52); Hemodilution- POC No; Hemoglobin Calculated - POC 13.2; Ionized Calcium - POC 1.15 mmol/L (1.15-1.33); Lactate - POC 1.06 mmol/L (0.36-0.75); O2 Saturation %Calculated-POC 99.2 % (94-98); PCO2 - POC 36 mmHg (35-48); PO2 - POC 145 mmHg (83-108); POC Comment PRE; Potassium - POC 4.0 mmol/L (3.5-5.1); Sodium - POC 139 mmol/L (136-145); Specimen Type - POC Arterial; pH - POC 7.38 (7.35-7.45)
[2025-02-25 12:56] LABS: Urine Squamous Cell 0-2 /LPF (Few)
[2025-02-25 13:32] LABS: ACT+ - POC 485 Seconds (82-134)
[2025-02-25 14:20] LABS: ACT+ - POC 560 Seconds (82-134)
[2025-02-25 14:57] LABS: ACT+ - POC 470 Seconds (82-134)
[2025-02-25 15:18] LABS: ACT+ - POC 557 Seconds (82-134)
[2025-02-25 15:34] LABS: B.E. - POC 2.4 mmol/L; Glucose - POC 114 mg/dl (70-99); HCO3 - POC 27 mmol/L (21-28); Hematocrit - POC 33 % PCV (42-52); Hemodilution- POC Yes; Hemoglobin Calculated - POC 11.2; Ionized Calcium - POC 1.07 mmol/L (1.15-1.33); Lactate - POC 0.38 mmol/L (0.36-0.75); O2 Saturation %Calculated-POC 100.0 % (94-98); PCO2 - POC 42 mmHg (35-48); PO2 - POC 357 mmHg (83-108); POC Comment CPB; Potassium - POC 4.9 mmol/L (3.5-5.1); Sodium - POC 140 mmol/L (136-145); Specimen Type - POC Arterial; pH - POC 7.42 (7.35-7.45)
[2025-02-25 15:43] LABS: ACT+ - POC 557 Seconds (82-134)
[2025-02-25 16:07] LABS: B.E. - POC 2.4 mmol/L; Glucose - POC 100 mg/dl (70-99); HCO3 - POC 27 mmol/L (21-28); Hematocrit - POC 32 % PCV (42-52); Hemodilution- POC Yes; Hemoglobin Calculated - POC 11.0; Ionized Calcium - POC 0.98 mmol/L (1.15-1.33); Lactate - POC < 0.30 mmol/L (0.36-0.75); O2 Saturation %Calculated-POC 100.0 % (94-98); PCO2 - POC 43 mmHg (35-48); PO2 - POC 380 mmHg (83-108); POC Comment CPB; Potassium - POC 5.8 mmol/L (3.5-5.1); Sodium - POC 139 mmol/L (136-145); Specimen Type - POC Arterial; pH - POC 7.41 (7.35-7.45)
--- NOTE | 2025-02-25 16:19 | PHA.VAN.FU ---
Vancomycin Assessment / Plan
- Assessment
Renal Function: Stable
WBC's are: Trending Up
In the past 24 hrs, patient has been: Afebrile
Concomitant Antimicrobials: ceftriaxone
- Dosing Plan
Continue: Vanc 1000mg Q12H
- Monitoring Plan
No level(s) ordered at this time: consider levels in next few days
- Follow Up
Pharmacy will continue to follow.
Vancomycin Follow UP
- -
Patient Age: 74
Patient Sex: Male
Vancomycin Day #: 4
Indication: Endocarditis
Requesting Provider: Dr Archer
Pertinent Antimicrobial Allergies:
penicillin G - Unknown told was allergic as a child
Height / Weight:
Height 5 ft 9 in
Actual Weight 86.9 kg
Pertinent Past Medical History: BMI ~29
- Vital Signs / Lab Results
Temp Pulse Resp BP Pulse Ox
98.2 F 113 18 105/75 91
02/25/25 11:45 02/25/25 11:39 02/25/25 11:45 02/25/25 11:39 02/25/25 11:45
Lab Results - Hematology
02/23/25 02/24/25 02/25/25
03:24 04:11 04:36
WBC 12.2 H 10.6 11.5 H
Lab Results - Chemistry
02/23/25 02/24/25 02/25/25
03:24 04:11 04:36
BUN 21 H 15 17
Creatinine 0.9 0.9 0.9
Estimated Creat Clear 72 72 72
Albumin 3.6
02/22/25 02/23/25
18:30 03:24
Lactic Acid 2.7 H 1.7
Lab Results - Urine
02/25/25
12:20
Urine Nitrite (Reflex) Negative
Leukocyte Esterase Rfl Negative
Ur Squamous Epith Cells 0-2
Microbiology Results
02/22/25 10:16 Blood Culture - Preliminary
Blood/Venous No Growth in 72 hours- Final report to follow
02/22/25 09:37 Blood Culture - Preliminary
Blood/Venous No Growth in 72 hours- Final report to follow
[2025-02-25 16:31] LABS: B.E. - POC 1.3 mmol/L; Glucose - POC 136 mg/dl (70-99); HCO3 - POC 26 mmol/L (21-28); Hematocrit - POC 32 % PCV (42-52); Hemodilution- POC Yes; Hemoglobin Calculated - POC 11.0; Ionized Calcium - POC 1.08 mmol/L (1.15-1.33); Lactate - POC 1.04 mmol/L (0.36-0.75); O2 Saturation %Calculated-POC 99.8 % (94-98); PCO2 - POC 39 mmHg (35-48); PO2 - POC 209 mmHg (83-108); POC Comment WARM; Potassium - POC 5.0 mmol/L (3.5-5.1); Sodium - POC 137 mmol/L (136-145); Specimen Type - POC Arterial; pH - POC 7.43 (7.35-7.45)
[2025-02-25 16:34] LABS: ACT+ - POC 148 Seconds (82-134)
[2025-02-25 16:54] LABS: B.E. - POC -2.0 mmol/L; Glucose - POC 142 mg/dl (70-99); HCO3 - POC 22 mmol/L (21-28); Hematocrit - POC 31 % PCV (42-52); Hemodilution- POC Yes; Hemoglobin Calculated - POC 10.7; Ionized Calcium - POC 1.15 mmol/L (1.15-1.33); Lactate - POC 1.48 mmol/L (0.36-0.75); O2 Saturation %Calculated-POC 97.8 % (94-98); PCO2 - POC 35 mmHg (35-48); PO2 - POC 98 mmHg (83-108); POC Comment POST; Potassium - POC 4.0 mmol/L (3.5-5.1); Sodium - POC 138 mmol/L (136-145); Specimen Type - POC Arterial; pH - POC 7.41 (7.35-7.45)
--- NOTE | 2025-02-25 16:55 | W.IMMPOSTOP ---
Addendum entered and electronically signed by Giancarlo Allen MD 02/25/25 17:58:
[id number]
Original Note:
Surgical Immed Post Op Note
-
CARDIAC SURGERY OPERATIVE NOTE:
Preoperative Dx:
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
Reduced LVEF 20%
AF w/ RVR
Postoperative Dx:
Same
LVEF improved to 35%
Procedures:
1) Median sternotomy
2) CPB
3) Aortotomy w/ additional direct ostial cardioplegia
4) Encompass MAZE procedure
5) Exclusion of KHALIDA w/ 35mm AtriClip
6) Excision of mobile calcium and BAV (sent for microbiologic analysis)
7) Annular debridement
8) AVR (#29 Inspiris Resilia)
Surgeon:
Giancarlo Allen M.D.
Assistants:
Eric FentonASrinivasa-Amna; wheelchair van operator first responder throughout
íVctor Cheng P.A.-C.; fascia-thru skin sternotomy closure
Anesthesia:
Chilo Rivera M.D.
Robin SantillanN.A.
Perfusion:
Amna EstradaCSrinivasaPSrinivasa; XC: 99min, CPB: 133min
Findings:
Mildly enlarged and slightly thin walled ascending aorta w/ normal tissue strength
BAV (Leah type 2 w/ fusion of L-R) w/ extensive leaflet and annular calcifications
Mobile calcification near keyon of NCC
29mm Inspiris Resilia valve secured w/ 18 interrupted pledgetted sutures and CorKnots
Small based KHALIDA w/ 'windsock' morphology - controlled at base w/ 35mm AtriClip - confirmed closed on postoperative MERCEDES
Encompass MAZE performed w/o incident w/ 2 transmural lesions at 3 levels around B/L pulmonary veins and posterior LA
Postoperative MERCEDES: LVEF improved to 35%, normal RV, well-seated AVR w/o AI/PVL, mean gradient 3mmHg, KHALIDA excluded, MR improved to [id number]
Implants:
Mixon Inspiris RESILIA, 29mm, Model [id number], SN: [id number]
AtriClip 35mm, LOT [id number]
Bipolar epicardial V-wire x 1
CT x 4 (B/L pleural, inferior mediastinal, superior mediastinal)
Sternal wires x 9
Transfusions:
None
Complications:
None
Condition:
106 AF, 106/62, 39/20, CVP 13, CO/CI: 3.8/1.9; 96%
GTTS: levophed 5, precedex 0.5, dobutamine 3, insulin 1
Stable/guarded to CVICU
--- NOTE | 2025-02-25 17:01 | CON.INTV ---
Consultation
Consultation Request
Date/Time Consultation Requested: 02/25
Date/Time Consultation Performed: 02/25
Reason for Consultation: Critical care
Medical History
-
History of Present Illness:
History apparently obtained from the chart as patient is currently intubated and sedated. 74-year-old male who presented with progressive shortness of breath and cough. He was initially admitted to [facility], treated with antibiotics found to
have new onset atrial fibrillation with RVR and heart failure. During [facility] prior to planned cardioversion, noted to have small mobile echodensity on aortic valve with severe aortic stenosis. He was transferred to [facility] and seen by
cardiology and cardiothoracic surgery. Hospital course reviewed. Blood cultures obtained. Plan for surgical valve replacement 02/25. We are asked to help from critical care standpoint. Patient is currently intubated, opening eyes. Currently on
norepinephrine, dobutamine. Chest tube output noted. Postoperative hemoglobin 11.5
Per records, patient has been complaining of dysphagia over the last 3 months
.
PMH: History of COPD, hypothyroid, seizure disorder, new onset atrial fibrillation as of January 2025, history of heart failure. 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
Past Medical History
Past Medical History: None (See above)
Past Surgical History: None (See above)
Social History
Tobacco: Former Smoker (Quit smoking 1989)
Alcohol: Occasional
Drug: None
Personal:
Living: With Family
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
Family History
Family History: Other (Not pertinent)
Allergies / Home Medications
Allergies
Allergy/AdvReac Type Severity Reaction Status Date / Time
penicillin G Allergy Unknown Unknown Verified 02/22/25 14:15
Home Medications
�Medication �Instructions �Recorded �Confirmed �Last Taken �Type
albuterol 90 mcg/actuation aerosol 90 mcg inhalation Q4H SOB 02/21/25 02/21/25 Unknown History
inhaler
aspirin 81 mg tablet 81 mg PO DAILY Blood Clot 02/21/25 02/21/25 02/20/25 History
Prevention/Tx
levothyroxine 50 mcg tablet 50 mcg PO DAILY Thyroid 02/21/25 02/21/25 02/20/25 History
phenobarbital 64.8 mg tablet 64.8 mg PO BID Seizures 02/21/25 02/21/25 02/21/25 History
Review of Systems
-
Unable to Obtain full review of systems at this time due to: Patient Intubation
All other systems: Negative unless noted
Vitals / Labs / Diagnostic Testing
Vital Signs
Temp Pulse Resp BP Pulse Ox
98.2 F 113 18 105/75 91
02/25/25 11:45 02/25/25 11:39 02/25/25 11:45 02/25/25 11:39 02/25/25 11:45
Laboratory Results
02/24/25 02/25/25
20:35 04:36
APTT 100.7 H 110.5 H
Microbiology
02/22/25 10:16 Blood/Venous Blood Culture - Preliminary
No Growth in 72 hours- Final report to follow
02/22/25 09:37 Blood/Venous Blood Culture - Preliminary
No Growth in 72 hours- Final report to follow
02/21/25 21:25 Nose MRSA Screen - Final
No Methicillin Resistant Staphylococcus aureus isolated.
Diagnostic Testing:
Physical Exam
-
HEENT: Normocephalic and Other (IJ, A-line, chest tube)
Cardiovascular: S1/S2, Regular Rhythm, Murmur (n) and Rub (n)
Respiratory: Wheeze (n), Rales (n), Rhonchi, Non-Labored Respirations and Other (ET tube)
GI: Soft, Non Distended and Non Tender
Neurology: Other (Sedated, intubated)
Skin: Other (No rash)
General: Comfortable
Assessment
-
74-year-old male with new onset atrial fibrillation, heart failure, initially treated for pneumonia at [facility] found to have aortic mobile lesion, transferred to [facility]. Found to have possible bicuspid aortic valve with calcified
deposit, now status post AVR with biological valve replacement, maze procedure 02/25
S/p bio AVR, MAZE 02/25/25
New onset atrial fibrillation
Hospitalized at [facility], transferred to [facility] 02/22
EF 20%, preoperatively/intraoperatively
Improved to 35% postoperatively
Acute heart failure
Likely combination of aortic stenosis valve area 0.72 cm�, atrial fibrillation
Per MERCEDES 02/24/2025, EF 40%
Postoperative anemia
Conditions present prior to admission
Suspected COPD
History of seizure disorder
Distant tobacco history, quit 1989
Plan/recommendations
At this time, patient remains critically ill but stable. Appears comfortable on volume-cycled ventilation, airway pressures adequate
Chest tube drainage noted
Postoperative chest x-ray unremarkable, no acute findings
ET tube in appropriate position
Currently on norepinephrine, dobutamine, Precedex
Moving forward
Continue with management per CT surgery
Anticipate extubation later tonight
Follow hemoglobin
Follow blood sugars per protocol
Intraoperative EF improvement noted
Once extubated, pain control, incentive spirometry
Await pathology
Reviewed with critical care nursing
TCCT 31 min
[2025-02-25] MEDS: LR 250 ML IV ×4 (17:35→18:53)
[2025-02-25 17:42] LABS: Glucose - Point of Care 159 mg/dl (70-99)
[2025-02-25 17:48] LABS: B.E. -1.6 mmol/L; HCO3 22.9 mmol/L (21-28); O2 Saturation % 99.3 % (94-98); PCO2 37 mmHg (35-48); PO2 130 mmHg (83-108); Potassium 4.2 mMOL/L (3.5-5.1); Sodium 134 mMOL/L (136-145)
[2025-02-25 17:57] LABS: Hematocrit 34.2 % (39.0-52.0); Hemoglobin 11.5 g/dL (13.0-18.0); Platelet Count 152 10^3/uL (130-400)
[2025-02-25 17:58] LABS: INR 1.68; PT 20.0 Sec (11.4-14.6)
[2025-02-25] MEDS: ANCEF 10 IV ×2 (17:58→17:59)
[2025-02-25 17:59] LABS: APTT 42.5 Sec (23.4-35.0)
[2025-02-25] MEDS: NEURONTIN PO ×2 (17:59→23:43)
[2025-02-25] MEDS: TYLENOL PO ×2 (17:59→23:43)
[2025-02-25] MEDS: PACERONE PO (17:59)
[2025-02-25] MEDS: NSS 500 IV (17:59)
[2025-02-25] MEDS: CARDIZEM PO (18:00)
--- NOTE | 2025-02-25 18:00 | PTCARENOTE ---
pt received from [facility], sedated on Precedex gtt, RASS -5. core temp 96.2F, bear hugger applied. A-fib w/ RVR on the monitor, HR 100-120s. V wires in place, set to VVI 30/19. goal SBP per Dr. Allen <100, Levophed gtt running as ordered. PAP
20-30s/10s, CVP ~4-6, CI 1.37, SVR ~2200, MECHANICAL TECHNICAL SERVICE SPECIALIST Linette aware. LR bolus x3 given per MECHANICAL TECHNICAL SERVICE SPECIALIST. palpable pulses, no edema. pt mechanically ventilated, ETT #8.0, 25cm@lip. SIMV 14, TV 550, PEEP 5, FIO2 100% and decreased to 50%. POX 94-98%. lungs clear
anteriorly. CTx4, no air leak or crepitus noted, MECHANICAL TECHNICAL SERVICE SPECIALIST aware of output. pt abdomen s/n. Pacheco in place, clear yellow urine. sternal dressing intact, chest tube dressing intact. RIJ cordis/swan maintained. L radial A-line flushed, zeroed, and
calibrated. PIV x2. insulin gtt running as ordered. lab work drawn, EKG performed, CXR completed. see worklist for VS, I&O, and assessment.
[2025-02-25] MEDS: CALCIUM GLUCONATE 100 IV ×2 (18:07→21:54)
[2025-02-25 18:08] LABS: Glucose - Point of Care 157 mg/dl (70-99)
[2025-02-25 18:09] LABS: Blood Urea Nitrogen 15 mg/dl (9-20); Estimated Creatinine Clearance 81 ml/min; Glucose 157 mg/dl (70-99); Magnesium 2.9 mg/dl (1.6-2.3)
[2025-02-25] MEDS: ROCEPHIN IV (18:17)
[2025-02-25] MEDS: STERILE WATER FOR INJECTION IV (18:17)
[2025-02-25 19:21] LABS: Glucose - Point of Care 138 mg/dl (70-99)
--- NOTE | 2025-02-25 19:45 | PTCARENOTE ---
received pt from previous rn. pt intubated and sedated on Precedex gtt, RASS -5. a-flutter/a-tachycardia. HR 100-120s. V wires in place, set to VVI 30/19. goal SBP per Dr. Allen <100, Levophed gtt running as ordered. PAP 20-30s/10s, CVP ~9.
palpable pulses, no edema. pt mechanically ventilated, ETT #8.0, 25cm@lip. SIMV 14, TV 550, PEEP 5, FIO2 50%. pox 96%. lungs clear anteriorly. CTx4 to -20cm wall suction, no air leak/ tidaling or crepitus noted. abdomen s/n. Pacheco in place draining
clear yellow urine. sternal dressing intact, chest tube dressing intact. RIJ cordis w/ swan floated to 50 maintained. L radial A-line intact all lines flushed, zeroed, and calibrated. PIV x2. insulin gtt running as ordered. see worklist for VS,
I&O, and full nursing assessment.
[2025-02-25 19:58] LABS: Glucose - Point of Care 188 mg/dl (70-99)
[2025-02-25 20:00] LABS: Glucose - Point of Care 150 mg/dl (70-99)
[2025-02-25] MEDS: SENOKOT PO (20:14)
[2025-02-25] MEDS: LUMINAL PO (20:14)
[2025-02-25] MEDS: DILAUDID 0.25 MG IV (20:32)
[2025-02-25 21:03] LABS: Glucose - Point of Care 144 mg/dl (70-99)
[2025-02-25 21:17] LABS: Hematocrit 34.4 % (39.0-52.0); Hemoglobin 11.5 g/dL (13.0-18.0); Platelet Count 157 10^3/uL (130-400)
[2025-02-25 21:21] LABS: INR 1.48; PT 18.2 Sec (11.4-14.6)
[2025-02-25 21:26] LABS: Blood Urea Nitrogen 15 mg/dl (9-20); Calcium 8.3 mg/dl (8.4-10.2); Carbon Dioxide 22 mmol/L (22-30); Chloride 106 mmol/L (98-107); Estimated Creatinine Clearance 81 ml/min; Glucose 153 mg/dl (70-99); Magnesium 2.4 mg/dl (1.6-2.3); Potassium 4.2 mmol/L (3.5-5.1); Sodium 132 mmol/L (135-145); eGFR > 60.00
[2025-02-25] MEDS: SODIUM BICARBONATE 50 MEQ IV (21:44)
[2025-02-25] MEDS: CALCIUM CHLORIDE 10% SYRINGE 500 MG IV ×2 (21:47→21:49)
[2025-02-25 22:06] LABS: Glucose - Point of Care 129 mg/dl (70-99)
[2025-02-25 22:36] LABS: B.E. -0.6 mmol/L; HCO3 23.1 mmol/L (21-28); O2 Saturation % 99.8 % (94-98); PCO2 34 mmHg (35-48); PO2 147 mmHg (83-108); Potassium 4.3 mMOL/L (3.5-5.1); Sodium 135 mMOL/L (136-145)
--- NOTE | 2025-02-25 22:50 | RESPNOTE ---
pt extubated @ 2250 per MD order, pt suctioned prior to extubation. extubated without incident, pt able to vocalize, no stridor present. placed on 6LNC tolerating well
--- NOTE | 2025-02-25 22:54 | PTCARENOTE ---
pt extubated to 6L NC w/o incident @ 2250. able to state name and and follow all commands.
--- NOTE | 2025-02-25 23:15 | PTCARENOTE ---
report received from previous RN, walking rounds done. pt in bed, drowsy but oriented. pt denies any pain at this time. AFIB/ST on monitor, HR 120s. +peripheral pulses. heart tones clear. no edema noted. epicardial V wires in place, set to back up
VVI 30, mA 19. RIJ cordis + swan in place w KVOs infusing. L radial art line in place w good waveform. Levo gtt infusing @ 4mcg. SBP 90s-100s. PAP 20s/10s. CVP ~5-6. Dobut gtt infusing @ 3mcg. last CI 1.6. bilateral breath sounds present. POX 98% on
6LNC. CT x4 intact to -20cm wall suction, no air leak, tidaling, or crepitus noted; drainage WNL. IS encouraged. +BS. abdomen soft, nontender. Insulin gtt infusing per glycemic protocol. evans catheter in place, draining CYU, UO adequate. all
surgical sites stable, CDI. turning pt Q2H and as needed. see worklist for full assessment, VS, and interventions. pt resting comfortably.
[2025-02-26] VITALS (21 sets, daily range): BP systolic 75–127; BP diastolic 53–79; BMI 28.8
[2025-02-26] LABS: Glucose - Point of Care 114 mg/dl (70-99)
[2025-02-26] MEDS: LOW STRENGTH ASPIRIN 81 MG PO ×2 (00:13→09:11)
[2025-02-26] MEDS: ANCEF 5 IV ×3 (00:20→16:25)
[2025-02-26] MEDS: TORADOL 15 MG IV ×2 (00:20→05:39)
[2025-02-26] MEDS: PACERONE 200 MG PO ×4 (00:20→22:15)
--- NOTE | 2025-02-26 00:20 | PTCARENOTE ---
pt continues to have Aflutter on monitor HR 120s. orders received for Amio bolus per CT PA.
[2025-02-26] MEDS: CORDARONE 103 MG IV ×2 (00:37→01:30)
--- NOTE | 2025-02-26 00:42 | W.PN.CT ---
Today's Communication / Plan
-
Plan:
-No major issues overnight. Hemodynamically and neurologically intact
-Successfully extubated on 02/25 @ 2250
-On Dobutamine gtt @ 3, Levo @ 4, and insulin gtt per protocol. HR 120-130's (appeared to be a-flutter) last night, received amio bolus and started on gtt. HR 112 this AM, appears to be sinus tachycardia vs a-flutter
-Last CI 1.79->1.61, MVO2 52.2, U/O 1010 mL since OR
-H/H stable @ 10.6/30.6
-Monitor chest tube output: 2meds 330/470, R/L Pleural 200/550
-Holding Lopressor while on dobutamine
-Will need Coumadin moving forward for A-fib as DOAC/NOAC is contraindicated in pt's taking Phenobarbital
-Antibiotics per ID, currently on Vancomycin and Rocephin. F/u cultures
-Cont. current meds (ASA, Synthroid, Phenobarbital, Amiodarone)
-D/C insulin gtt today per protocol
-Will d/c swan and a-line when able to wean off Dobutamine
-Will maintain evans for accurate I/O's
-Maintain temp PW
-Maintain cordis
-Wean O2 as tolerated
-Encourage use of IS
-OOB into chair/Ambulate
Assessment / Plan
-
Assessment:
-S/P Median sternotomy/AVR (#29 Inspiris Resilia)/ Annular debridement/[facility] MAZE procedure/Exclusion of KHALIDA w/ 35mm AtriClip/Excision of mobile calcium and BAV (sent for microbiologic analysis), by Dr. Allen, 02/25/25, pod#1
Assessment:
-Bicuspid AV w/ moderate to severe stenosis, moderate regurgitation, and mobile calcium vs. vegetation
-LVEF 20%, improved to 35% postop per intraop MERCEDES
-Dilated asc. aorta (4.2 cm)
-New onset A-fib with RVR
-Hx TIA/CVA
-Seizure disorder
-Hypothyroidism
-COPD
-Former tobacco use (quit 37 years ago)
-DVT/PE
-Transaminitis
-GERD
-S/P LE vein stripping
-Acute postop blood loss/Anemia (stable without transfusion)
-Acute postop atelectasis
-Acute postop hypovolemia with subsequent hypervolemia
Discussed patient care with: Cardiology, Nursing, Respiratory Therapy, Pharmacy and Care Team
Subjective
Procedure
Median sternotomy/AVR (#29 Inspiris Resilia)/ Annular debridement/[facility] MAZE procedure/Exclusion of KHALIDA w/ 35mm AtriClip/Excision of mobile calcium and BAV (sent for microbiologic analysis), by Dr. Allen, 02/25/25
-
Date of Service: February 26, 2025
C/O incisional pain, otherwise feels well
Objective Data
-
PT 18.2 Sec (11.4-14.6) H 02/25/25 21:01
INR 1.48 02/25/25 21:01
APTT 42.5 Sec (23.4-35.0) H 02/25/25 17:33
Vital Signs
Vital Signs
Temp Pulse Resp BP Pulse Ox
98.3 F 125 23 109/70 99
02/26/25 00:00 02/26/25 00:20 02/25/25 23:45 02/26/25 00:20 02/26/25 00:00
CT Intake/Output/Weight
02/25/25 02/25/25 02/26/25
06:59 18:59 06:59
Intake Total 812 / 1674 705.2 / 1992.6 1288.4 / 1992.6
Output Total 1200 / 2300 690 / 1740 1050 / 1740
Balance -388 / -626 15.2 / 253.6 238.4 / 253.6
SaO2: 93 (2L)
Physical Exam
-
General: Awake, Oriented and AOx3
Cardiovascular: Regular rate & rhythm, No Murmurs, No Rub and No Gallop
Respiratory: Decreased Breath Sounds (at bases, otherwise clear)
Sternum: Stable
Incision: Clean, Dry, Intact and Dressing Intact
Extremities: Other (+trace edema)
Data Reviewed
-
Lab Results: Results Reviewed
Medications: Active Meds Reviewed
Chest X-Ray: Report Reviewed and Image Reviewed
ECG: Report Reviewed and Image Reviewed
--- NOTE | 2025-02-26 01:00 | PTCARENOTE ---
HR improved to 110s. pt continues to require Levo gtt. orders received for additional Amio bolus, Amio gtt, and NSS 250cc bolus per CT PA.
[2025-02-26] MEDS: NSS 250 IV (01:31)
[2025-02-26 02:01] LABS: Glucose - Point of Care 132 mg/dl (70-99)
[2025-02-26] MEDS: CORDARONE 259 MG IV ×2 (02:06→11:59)
[2025-02-26] MEDS: LEVOPHED 250 IV ×2 (02:10→13:14)
[2025-02-26] MEDS: DILAUDID 0.5 MG IV (02:22)
[2025-02-26 02:56] LABS: Glucose - Point of Care 125 mg/dl (70-99)
--- NOTE | 2025-02-26 03:00 | PTCARENOTE ---
no acute changes in assessment. pt AAOx4. AM EKG done - shows sinus tachycardia. Amio gtt infusing per orders. Levo gtt infusing @ 4-6mcg. SBP 80s-100s. Dobut gtt remains infusing @ 3mcg. last CI 1.7. POX 94% on 2LNC. CT output and UO WNL. IS
encouraged. Insulin gtt maintained per glycemic protocol. all surgical sites stable. turning pt Q2H and as needed. AM labs drawn and sent. pt resting between care.
[2025-02-26 03:08] LABS: Hematocrit 30.6 % (39.0-52.0); Hemoglobin 10.6 g/dL (13.0-18.0); Mean Corp Hgb Conc. 34.6 g/dL (33.0-37.0); Mean Corpuscular Volume 98.1 fL (80.0-94.0); Platelet Count 146 10^3/uL (130-400); Red Cell Dist. Width 13.3 % (11.5-14.5)
[2025-02-26 03:36] LABS: INR 1.46; PT 18.0 Sec (11.4-14.6)
[2025-02-26 03:39] LABS: ALT (SGPT) 26 U/L (0-50); AST (SGOT) 56 U/L (17-59); Albumin 2.5 g/dl (3.5-5.0); Alkaline Phosphatase 69 U/L (38-126); Blood Urea Nitrogen 15 mg/dl (9-20); Calcium 9.0 mg/dl (8.4-10.2); Carbon Dioxide 24 mmol/L (22-30); Chloride 107 mmol/L (98-107); Estimated Creatinine Clearance 72 ml/min; Glucose 131 mg/dl (70-99); Magnesium 2.3 mg/dl (1.6-2.3); Potassium 4.3 mmol/L (3.5-5.1); Sodium 136 mmol/L (135-145); Total Protein 4.9 g/dl (6.3-8.2); eGFR > 60.00
[2025-02-26 03:59] LABS: Glucose - Point of Care 120 mg/dl (70-99)
[2025-02-26 04:51] LABS: Glucose - Point of Care 109 mg/dl (70-99)
[2025-02-26] MEDS: VANCOCIN 200 IV ×2 (05:37→18:22)
[2025-02-26] MEDS: ROCEPHIN 2000 MG IV ×2 (05:38→18:23)
[2025-02-26] MEDS: STERILE WATER FOR INJECTION 20 ML IV ×2 (05:39→18:23)
[2025-02-26] MEDS: SYNTHROID 50 MCG PO (05:40)
[2025-02-26] MEDS: TYLENOL 975 MG PO ×3 (05:40→22:15)
[2025-02-26 06:01] LABS: Glucose - Point of Care 111 mg/dl (70-99)
--- NOTE | 2025-02-26 07:52 | W.PN.ANS.POP ---
Anesthesia Post Operative
- Anesthesia Post Op Note
Vital Signs Stable-See Nursing Note: Yes ( with dobutamine, levophed infusions)
Airway Patent: Yes
Adequate Pain Control: Yes
Change in Mental Status: No
Current Postoperative Nausea & Vomiting: No
Anesthesia Complications: No
General Anesthetic Recall: No
Unplanned Admission: No
Post Op Hydration Adequate: Yes
--- NOTE | 2025-02-26 07:56 | W.PN.INTV ---
Today's Communication / Plan
Recommendations
Amiodarone therapy noted
Remains on norepinephrine, dobutamine. Wean per CT surgery protocol
Hemoglobin stable. Chest tube output noted
Lifelong anticoagulation is recommended at this time
Incentive spirometry, pain control
Assessment
-
74-year-old male with new onset atrial fibrillation, heart failure, initially treated for pneumonia at [facility] found to have aortic mobile lesion, transferred to [facility]. Found to have possible bicuspid aortic valve with calcified
deposit, now status post AVR with biological valve replacement, maze procedure 02/25
S/p bio AVR, MAZE 02/25/25
New onset atrial fibrillation
Hospitalized at [facility], transferred to [facility] 02/22
EF 20%, preoperatively/intraoperatively
Improved to 35% postoperatively
Acute heart failure
Likely combination of aortic stenosis valve area 0.72 cm�, atrial fibrillation
Per [facility] 02/24/2025, EF 40%
Postoperative anemia
Conditions present prior to admission
Suspected COPD
History of seizure disorder
Distant tobacco history, quit 1989
Plan/recommendations
At this time, patient appears stable, extubated without difficulty 02/25
Chest tube drainage noted
Chest x-ray with mild basilar atelectasis
Currently on norepinephrine, dobutamine
Amiodarone drip started for atrial fibrillation/flutter
Remains on insulin drip
Moving forward
Continue with management per CT surgery
Wean pressors per protocol
Tachycardia noted
Remains on amiodarone
Follow hemoglobin, stable
Follow blood sugars per protocol
Insulin drip being weaned
Intraoperative EF improvement noted
pain control, incentive spirometry
Mild bibasilar atelectasis per chest x-ray
Airway clearance
Out of bed to chair as able
Await pathology
Reviewed with critical care nursing
TCCT 31 min
Subjective Dataa
Subjective Data
Date of Service:
Date of Service: February 26, 2025
Subjective:
Patient appears to be comfortable. Denies significant shortness of breath, nausea. Pain is controlled. Appears to be in good spirits, conversant
Objective Data
Data Reviewed
Vital Signs / I&O / Oxygen:
Vital Signs
Temp Pulse Resp BP Pulse Ox
97.4 F 117 19 113/67 97
02/26/25 07:00 02/26/25 07:00 02/26/25 07:00 02/26/25 05:31 02/26/25 07:00
Intake and Output
02/25/25 02/26/25 02/27/25
06:59 06:59 06:59
Intake Total 1674 / 1674 2934.3 / 3047.0 112.7 / 112.7
Output Total 2300 / 2300 2054 / 2074
Balance -626 / -626 879.3 / 972.0 92.7 / 92.7
SaO2 [SIMV] 96
SaO2 97
Nasal Cannula flow liters per 2
minute
Physical Exam
General: Comfortable and Other (IJ, chest tube)
HEENT: Normocephalic and Anicteric
Cardiovascular: S1-S2, Regular Rhythm and Murmur (n)
Respiratory: Wheeze (n), Crackles (n), Rhonchi (n) and Non-Labored Respirations
GI: Soft, Non Distended and Non Tender
Neurology: Awake, Alert and No Motor Deficits
Skin: Jaundice (n), Rash (n) and Bruising
Labs/Micro/Reports
Lab Data
02/26/25 02:54
02/26/25 02:54
Laboratory Results
02/25/25 02/25/25 02/25/25
17:33 21:01 22:31
PT 20.0 H 18.2 H
INR 1.68 1.48
APTT 42.5 H
pH 7.40 7.44
pCO2 37 34 L
pO2 130 H 147 H
HCO3 22.9 23.1
O2 Delivery Level
02/25/25 02/26/25
22:35 02:54
PT 18.0 H
INR 1.46
APTT
pH Cancelled
pCO2 Cancelled
pO2 Cancelled
HCO3 Cancelled
O2 Delivery Level Cancelled
Microbiology
02/25/25 Unknown Valve Gram Stain - Preliminary
02/25/25 Unknown Valve Fungal Culture - Preliminary
Culture in progress.
Positive cultures are reported as soon as detected.
Final report to follow in four to five weeks.
02/25/25 Unknown Valve Gram Stain - Preliminary
02/25/25 Unknown Valve Fungal Culture - Preliminary
Culture in progress.
Positive cultures are reported as soon as detected.
Final report to follow in four to five weeks.
02/22/25 10:16 Blood/Venous Blood Culture - Preliminary
No Growth in 72 hours- Final report to follow
02/22/25 09:37 Blood/Venous Blood Culture - Preliminary
No Growth in 72 hours- Final report to follow
02/21/25 21:25 Nose MRSA Screen - Final
No Methicillin Resistant Staphylococcus aureus isolated.
--- NOTE | 2025-02-26 08:00 | PTCARENOTE ---
Addendum entered by Gilma Gant RN 02/26/25 14:35:
@~0823, 500ml LR bolus given per FORM LAYER.
Original Note:
pt received from previous RN, oriented, in bed. Aflutter on the monitor, HR 110s. Amiodarone gtt running as ordered. V wire in place, VVI 30/19. SBP 90-110s. Levophed gtt running as ordered. PAP 30s/10-20s. CVP~16. CI 1.72. Dobutamine gtt running as
ordered. palpable pulses. pt on 2LNC, 97% POX. lungs diminished, scattered coarse b/l. harsh FORM LAYER cough. IS encouraged, 750-1000ml. CTx4, no air leak or crepitus noted. pt abdomen s/n, hypoactive BS. clears tolerated. evans in place, FORM LAYER aware of
output. sternal aquacel intact. chest tube site c/d/i. RIJ cordis/swan maintained. L radial A-line flushed, zeroed and calibrated. PIV x2. insulin gtt running as ordered. see worklist for VS, I&O, and assessment.
[2025-02-26 08:20] LABS: Glucose - Point of Care 95 mg/dl (70-99)
[2025-02-26] MEDS: NOVOLIN R INSULIN INFUSION 100 IV (08:21)
[2025-02-26] MEDS: NOVOLOG FLEXPEN SC ×2 (08:21→17:35)
[2025-02-26] MEDS: BACTROBAN 2% OINTMENT 1 APPLIC NASAL ×2 (08:21→20:20)
[2025-02-26] MEDS: LR 500 IV (08:23)
[2025-02-26] MEDS: MAGNESIUM OXIDE 400 MG PO ×2 (09:10→20:20)
[2025-02-26] MEDS: NEURONTIN 100 MG PO ×3 (09:10→22:15)
[2025-02-26] MEDS: LUMINAL 64.8 MG PO ×2 (09:10→20:20)
[2025-02-26] MEDS: SENOKOT 8.6 MG PO ×2 (09:11→20:20)
[2025-02-26] MEDS: LIDOCAINE 4% PATCH TOPICAL (09:11)
[2025-02-26] MEDS: PROTONIX 40 MG PO (09:11)
--- NOTE | 2025-02-26 09:17 | W.PN.ID1 ---
Date of Service
Date of Service: February 26, 2025
Today's Communication
pathology was added on
cultures from the OR potentially contaminated (leaked) will follow up
continue antibiotics for now
Assessment / Plan
Possible endocarditis
Bicuspid AV with dense calcification
Severe
- 02/25 s/p AVR, MAZE, KHALIDA exclusion
- blood cultures x2 sets are in progress, he did have recent doxycycline
- blood cultures were also done at [facility] - called and spoke with [facility] lab 02/26 - 02/21 blood cultures are finalized negative
- valve cultures in progress aerobic, anaerobic fungal and AFB - note lab's comment that the sample leaked and may have been contaminated
- overall history is less concerning for an infectious process, most consistent with mobile calcium deposit
- asked lab to add on pathology - they commented that there is sufficient tissue
- continue vancomycin and ceftriaxone pending the pathology and cultures
patient is critically ill at this time
Chief Complaint
-: Other (possible endocarditis)
Subjective / Review of Systems
afebrile
on levophed and dobutamine
awake, no complaints
Vital Signs / Physical Exam
Vital Signs
Vital Signs
Temp Pulse Resp BP Pulse Ox
97.2 F 115 25 76/64 95
02/26/25 09:00 02/26/25 09:15 02/26/25 09:15 02/26/25 08:28 02/26/25 09:15
Physical Exam
Constitutional: No Acute Distress
Cardiovascular: Regular Rate and S1/S2; Negative Murmur or Rub
Pulmonary: Clear and Symmetric; Negative Wheezes or Rales
Gastrointestinal: Soft, Non Tender, Non Distended and Normal Bowel Sounds
Skin: Warm and Dry; Negative Rash or Jaundice
Objective Data
Lab Data
Lab Results
02/26/25 02:54
02/26/25 02:54
PT 18.0 Sec (11.4-14.6) H 02/26/25 02:54
INR 1.46 02/26/25 02:54
APTT 42.5 Sec (23.4-35.0) H 02/25/25 17:33
Estimated Creat Clear 72 ml/min 02/26/25 02:54
Lactic Acid 1.2 mmol/L (0.7-2.0) 02/26/25 02:54
Total Bilirubin 0.6 mg/dl (0.2-1.3) 02/26/25 02:54
AST 56 U/L (17-59) 02/26/25 02:54
ALT 26 U/L (0-50) 02/26/25 02:54
Alkaline Phosphatase 69 U/L (38-126) 02/26/25 02:54
Most recent labs reviewed.
Micro Results:
02/25/25 Unknown Tissue Culture - Pending
Valve Gram Stain - Preliminary
02/25/25 Unknown Acid Fast Bacilli Smear - Pending
Valve Acid Fast Bacilli Culture - Pending
02/25/25 Unknown Fungal Smear - Pending
Valve Fungal Culture - Preliminary
Culture in progress.
Positive cultures are reported as soon as detected.
Final report to follow in four to five weeks.
02/25/25 Unknown Anaerobic Culture - Pending
Heart
02/25/25 Unknown Tissue Culture - Pending
Valve Gram Stain - Preliminary
02/25/25 Unknown Fungal Smear - Pending
Valve Fungal Culture - Preliminary
Culture in progress.
Positive cultures are reported as soon as detected.
Final report to follow in four to five weeks.
02/25/25 Unknown Anaerobic Culture - Pending
Valve
02/25/25 Unknown Acid Fast Bacilli Smear - Pending
Valve Acid Fast Bacilli Culture - Pending
02/22/25 10:16 Blood Culture - Preliminary
Blood/Venous No Growth in 72 hours- Final report to follow
02/22/25 09:37 Blood Culture - Preliminary
Blood/Venous No Growth in 72 hours- Final report to follow
02/21/25 21:25 MRSA Screen - Final
Nose No Methicillin Resistant Staphylococcus aureus isolated.
--- NOTE | 2025-02-26 09:29 | W.PN.CD ---
Today's Communication / Plan
-
-Looks well clinically today; feels well.
-On low-dose Levophed and dobutamine.
-Slightly elevated heart rates to 120s; continue amiodarone drip.
-Recommend lifelong systemic anticoagulation.
Impression / Plan
-
Bicuspid aortic valve with mod-severe aortic stenosis with echo density on MERCEDES possible mobile calcium S/P Median sternotomy/AVR (#29 Inspiris Trevaa)/Annular debridement/[facility] MA[facility] procedure/Exclusion of KHALIDA w/ 35mm AtriClip/Excision (by
Alejandro, 02/25/25)
-Looks well clinically today; feels well.
-On low-dose Levophed and dobutamine.
-Slightly elevated heart rates to 120s; continue amiodarone drip.
-Continue routine postsurgical care as directed by CT Surgery.
New AF/Aflutter with RVR:
- Attempted cardioversion in the OR yesterday.
- Recommend lifelong systemic anticoagulation.
COPD:
-former smoker
-Recent treatment with doxycycline for PNA
Physical Exam
Vital Signs/Labs
Vital Signs
Temp Pulse Resp BP Pulse Ox
97.2 F 115 25 76/64 95
02/26/25 09:00 02/26/25 09:15 02/26/25 09:15 02/26/25 08:28 02/26/25 09:15
02/25/25 02/26/25 02/27/25
06:59 06:59 06:59
Actual Weight 86.9 kg 88.4 kg
02/26/25 02:54
02/26/25 02:54
PT 18.0 Sec (11.4-14.6) H 02/26/25 02:54
INR 1.46 02/26/25 02:54
APTT 42.5 Sec (23.4-35.0) H 02/25/25 17:33
Magnesium 2.3 mg/dl (1.6-2.3) 02/26/25 02:54
Triglycerides 86 mg/dl (10-149) 02/21/25 20:44
LDL Cholesterol, Calc 52 mg/dl 02/21/25 20:44
VLDL Cholesterol, Calc 17 mg/dl (0-30) 02/21/25 20:44
HDL Cholesterol 46 mg/dl 02/21/25 20:44
TSH 3.07 uIU/ml (0.47-4.68) 02/23/25 03:24
Physical Exam
Constitutional: No acute distress and Comfortable
EENT: Anicteric
Cardiovascular: Pedal edema is absent, Systolic murmur absent, S1S2 is normal and Other (Regular rhythm, tachycardic)
Respiratory: Respiratory effort normal and Lungs clear to auscul.
GI: Soft
Neuro/Psych: AO x 3
Other: Skin (Warm, dry, intact)
Data Reviewed
-
Date of Service: February 26, 2025
EKG: Tracing Personally Visualized and interpreted (Telemetry: Atrial flutter to 120s)
Medical Tests (PFT, Pathology etc): Discussed with Physician (CT Surgery team) and Discussed with Patient
Labs: Labs Reviewed by me
Critical Care Time (in minutes): 34
[2025-02-26 10:00] LABS: Glucose - Point of Care 100 mg/dl (70-99)
--- NOTE | 2025-02-26 12:00 | PTCARENOTE ---
Addendum entered by Gilma Gant RN 02/26/25 14:36:
CMP and CBC drawn, ENGINE INSTALLER aware of results.
Original Note:
ENGINE INSTALLER aware of hemodynamics, ENGINE INSTALLER aware of CT and urine outputs. MVO2 56.3, ENGINE INSTALLER aware. Dobutamine gtt running as ordered. pt offers no c/o pain or n/v.
[2025-02-26 12:05] LABS: Glucose - Point of Care 105 mg/dl (70-99)
[2025-02-26] MEDS: TORADOL IV (12:55)
[2025-02-26 12:57] LABS: Hematocrit 27.6 % (39.0-52.0); Hemoglobin 9.3 g/dL (13.0-18.0); Mean Corp Hgb Conc. 33.7 g/dL (33.0-37.0); Mean Corpuscular Volume 97.2 fL (80.0-94.0); Platelet Count 144 10^3/uL (130-400); Red Cell Dist. Width 13.3 % (11.5-14.5)
[2025-02-26 13:02] LABS: ALT (SGPT) 24 U/L (0-50); AST (SGOT) 57 U/L (17-59); Albumin 2.5 g/dl (3.5-5.0); Alkaline Phosphatase 69 U/L (38-126); Blood Urea Nitrogen 19 mg/dl (9-20); Calcium 8.3 mg/dl (8.4-10.2); Carbon Dioxide 26 mmol/L (22-30); Chloride 104 mmol/L (98-107); Estimated Creatinine Clearance 72 ml/min; Glucose 92 mg/dl (70-99); Potassium 3.9 mmol/L (3.5-5.1); Sodium 131 mmol/L (135-145); Total Protein 5.0 g/dl (6.3-8.2); eGFR > 60.00
[2025-02-26] MEDS: FLEXBUMIN 100 IV ×2 (13:43→22:05)
[2025-02-26 13:53] LABS: Glucose - Point of Care 79 mg/dl (70-99)
[2025-02-26] MEDS: NOVOLOG FLEXPEN 4 UNITS SC (14:01)
[2025-02-26] MEDS: CALCIUM CHLORIDE 10% SYRINGE 60 MG IV (14:10)
[2025-02-26] MEDS: LR 1000 IV (14:23)
--- NOTE | 2025-02-26 15:06 | PHA.VAN.FU ---
Vancomycin Assessment / Plan
- Assessment
Renal Function: Stable
WBC's are: Trending Up
In the past 24 hrs, patient has been: Afebrile
Concomitant Antimicrobials: ceftriaxone
- Dosing Plan
Continue: Vanc 1000mg Q12H
- Monitoring Plan
Peak Level: 02/26 21:00
Trough Level: 02/27 05:30
Monitoring Comments: levels to be drawn after 8th maintenance dose
- Follow Up
Pharmacy will continue to follow.
Vancomycin Follow UP
- -
Patient Age: 74
Patient Sex: Male
Vancomycin Day #: 5
Indication: Endocarditis
Requesting Provider: Dr Archer
Pertinent Antimicrobial Allergies:
penicillin G - Unknown told was allergic as a child
Height / Weight:
Height 5 ft 9 in
Actual Weight 88.4 kg
Pertinent Past Medical History: BMI ~29
- Vital Signs / Lab Results
Temp Pulse Resp BP Pulse Ox
98.5 F 115 26 108/78 96
02/26/25 15:00 02/26/25 15:00 02/26/25 15:00 02/26/25 12:03 02/26/25 15:00
Lab Results - Hematology
02/24/25 02/25/25 02/26/25
04:11 04:36 02:54
WBC 10.6 11.5 H 16.7 H
02/26/25
12:36
WBC 17.9 H
Lab Results - Chemistry
02/24/25 02/25/25 02/25/25
04:11 04:36 17:33
BUN 15 17 15
Creatinine 0.9 0.9 0.8
Estimated Creat Clear 72 72 81
Albumin
02/25/25 02/26/25 02/26/25
21:01 02:54 12:36
BUN 15 15 19
Creatinine 0.8 0.9 0.9
Estimated Creat Clear 81 72 72
Albumin 2.5 L 2.5 L
02/25/25 02/26/25
21:01 02:54
Lactic Acid 2.1 H 1.2
Microbiology Results
02/25/25 Unknown Fungal Smear - Final
Valve No yeast or fungal elements seen.
Fungal Culture - Preliminary
Culture in progress.
Positive cultures are reported as soon as detected.
Final report to follow in four to five weeks.
02/25/25 Unknown Fungal Smear - Final
Valve No yeast or fungal elements seen.
Fungal Culture - Preliminary
Culture in progress.
Positive cultures are reported as soon as detected.
Final report to follow in four to five weeks.
02/25/25 Unknown Anaerobic Culture - Preliminary
Valve Culture pending. Anaerobic cultures are examined after 3
days incubation. Additional information to follow.
02/25/25 Unknown Tissue Culture - Preliminary
Valve No Growth After 18-24 Hours
Gram Stain - Preliminary
02/25/25 Unknown Anaerobic Culture - Preliminary
Heart Culture pending. Anaerobic cultures are examined after 3
days incubation. Additional information to follow.
02/25/25 Unknown Tissue Culture - Preliminary
Valve No Growth After 18-24 Hours
Gram Stain - Preliminary
02/22/25 10:16 Blood Culture - Preliminary
Blood/Venous No Growth in 4 days- Final report to follow
02/22/25 09:37 Blood Culture - Preliminary
Blood/Venous No Growth in 4 days- Final report to follow
[2025-02-26 15:14] LABS: Glucose - Point of Care 141 mg/dl (70-99)
[2025-02-26 16:26] LABS: Glucose - Point of Care 115 mg/dl (70-99)
[2025-02-26] MEDS: NSS 500 IV (16:27)
--- NOTE | 2025-02-26 16:30 | PTCARENOTE ---
[employer] aware of hemodynamics, CT output and UO. ECHO completed. FFP transfusing as ordered. pt washed w/ CHG wipes, gown and linens changed. chest tube dressing changed. LR IVF running as ordered.
[2025-02-26 17:12] LABS: Glucose - Point of Care 124 mg/dl (70-99)
[2025-02-26] MEDS: REMOVE LIDOCAINE PATCH REMOVE (20:20)
--- NOTE | 2025-02-26 20:35 | PTCARENOTE ---
received pt from previous rn. pt AAOx4. a-flutter/a-tachycardia per tele monitor. HR 100-120s. V wires in place, set to VVI 30/19. PAP 20-30s/10s, CVP ~9. palpable pulses, B/L LE trace edema. pt on 2L NC pox 98%. lungs diminished at bases. non
productive cough noted. CTx4 to -20cm wall suction, no air leak/ tidaling or crepitus noted. abdomen s/n. Pacheco in place draining clear yellow urine. sternal dressing intact, chest tube dressing intact. RIJ cordis w/ swan floated to 50 maintained. L
radial A-line intact all lines flushed, zeroed, and calibrated. PIV x2. see worklist for VS, I&O, and full nursing assessment.
[2025-02-26 21:36] LABS: B.E. 0.4 mmol/L; HCO3 23.1 mmol/L (21-28); O2 Saturation % 99.3 % (94-98); PCO2 29 mmHg (35-48); PO2 106 mmHg (83-108); Potassium 4.2 mMOL/L (3.5-5.1)
[2025-02-26 21:54] LABS: Magnesium 2.1 mg/dl (1.6-2.3)
--- NOTE | 2025-02-26 23:00 | PTCARENOTE ---
report received from previous RN, walking rounds done. pt in bed, sleeping. a-flutter on monitor, HR 110's. epicardial V wires in place, set to back up VVI 30, mA 19. +peripheral pulses. trace edema noted to bilateral LE's. heart tones clear. RIJ
cordis + swan in place w KVOs infusing. L radial art line in place w good waveform. SBP 120s. PAP 30s/10s. CVP ~8-11. last CI 2.3. Dobut gtt infusing @ 5mcg. bilateral breath sounds present. POX 98% on 2L NC pox 98%. occasional, non productive cough
noted. CT x4 intact to -20cm wall suction; no air leak, tidaling, or crepitus noted; drainage WNL. +BS. abdomen soft, nontender. evans catheter in place draining CYU, UO ~30cc.hr. all surgical sites stable. see worklist for full assessment, VS, and
interventions.
[2025-02-27] VITALS (32 sets, daily range): BP systolic 84–163; BP diastolic 45–101; PULSE 68; O2SAT 95–96; BMI 29.2
[2025-02-27 04:14] LABS: B.E. -0.8 mmol/L; HCO3 22.3 mmol/L (21-28); O2 Saturation % 98.9 % (94-98); PCO2 30 mmHg (35-48); PO2 106 mmHg (83-108)
[2025-02-27 04:15] LABS: O2 Therapy 2L
[2025-02-27] MEDS: CARDENE 200 IV (04:23)
[2025-02-27 04:27] LABS: Hematocrit 23.6 % (39.0-52.0); Hemoglobin 8.0 g/dL (13.0-18.0); Mean Corp Hgb Conc. 33.9 g/dL (33.0-37.0); Mean Corpuscular Volume 97.1 fL (80.0-94.0); Platelet Count 129 10^3/uL (130-400); Red Cell Dist. Width 13.3 % (11.5-14.5)
--- NOTE | 2025-02-27 04:30 | PTCARENOTE ---
no acute changes. pt AAOx4, denies any pain. Aflutter on monitor, HR 100s-110s. last CI 2.5. Dobut decreased to 4mcg per and Cardene gtt started per CT PA d/t HTN - SBP 160s. Amio gtt maintained per orders. POX 99% on 2LNC. CT output and UO WNL. all
surgical sites stable. AM labs drawn and sent. pt resting between care.
[2025-02-27 04:37] LABS: Blood Urea Nitrogen 18 mg/dl (9-20); Calcium 8.4 mg/dl (8.4-10.2); Carbon Dioxide 23 mmol/L (22-30); Chloride 104 mmol/L (98-107); Estimated Creatinine Clearance 72 ml/min; Glucose 176 mg/dl (70-99); Magnesium 2.1 mg/dl (1.6-2.3); Potassium 4.7 mmol/L (3.5-5.1); Sodium 134 mmol/L (135-145); eGFR > 60.00
[2025-02-27] MEDS: FLEXBUMIN 100 IV (05:09)
[2025-02-27] MEDS: ROCEPHIN 2000 MG IV ×2 (05:10→18:11)
[2025-02-27] MEDS: STERILE WATER FOR INJECTION 20 ML IV ×2 (05:10→18:11)
[2025-02-27] MEDS: TYLENOL 975 MG PO ×3 (05:11→21:03)
[2025-02-27] MEDS: SYNTHROID 50 MCG PO (05:11)
[2025-02-27] MEDS: VANCOCIN 200 IV ×2 (05:12→18:11)
[2025-02-27 05:16] LABS: INR 1.49; PT 18.5 Sec (11.4-14.6)
--- NOTE | 2025-02-27 07:54 | PHA.VAN.FU ---
Vancomycin Assessment / Plan
- Assessment
Renal Function: Stable
WBC's are: Trending Down
In the past 24 hrs, patient has been: Afebrile
Concomitant Antimicrobials: ceftriaxone
- Assessment - Therapeutic Drug Monitoring
Extrapolated Cmax (mcg/mL): 30.4
Peak level was drawn: Appropriately (drawn ~2H after end of previous infusion)
Extrapolated Cmin (mcg/mL): 12.2
Trough Drawn: Appropriately
Levels were drawn: At steady state (levels drawn after 8th maintenance dose)
Calculated AUC (mcg*h/mL): 481
Calculated ke: 0.0831
Calculated half life (H): 8.3
Calculated Vd (L): 50 (~0.6 L/kg)
Calculated Vanc CL (ml/min): 69
- Dosing Plan
Continue: Vanc 1000mg Q12H
- Monitoring Plan
Level(s) appropriate: Recheck trough at minimum of weekly intervals, Repeat sooner for changes in renal function or clinical status
Next Level Due (Date): ~03/06
- Follow Up
Pharmacy will continue to follow.
Vancomycin Follow UP
- -
Patient Age: 74
Patient Sex: Male
Vancomycin Day #: 6
Indication: Endocarditis
Requesting Provider: Dr Archer
Pertinent Antimicrobial Allergies:
penicillin G - Unknown told was allergic as a child
Height / Weight:
Height 5 ft 9 in
Actual Weight 89.6 kg
Pertinent Past Medical History: BMI ~29
- Vital Signs / Lab Results
Temp Pulse Resp BP Pulse Ox
98.9 F 79 30 127/64 92
02/27/25 07:00 02/27/25 07:00 02/27/25 07:00 02/27/25 07:00 02/27/25 07:00
Lab Results - Hematology
02/25/25 02/26/25 02/26/25
04:36 02:54 12:36
WBC 11.5 H 16.7 H 17.9 H
02/27/25
03:52
WBC 14.0 H
Lab Results - Chemistry
02/25/25 02/25/25 02/25/25
04:36 17:33 21:01
BUN 17 15 15
Creatinine 0.9 0.8 0.8
Estimated Creat Clear 72 81 81
Albumin
02/26/25 02/26/25 02/27/25
02:54 12:36 03:52
BUN 15 19 18
Creatinine 0.9 0.9 0.9
Estimated Creat Clear 72 72 72
Albumin 2.5 L 2.5 L
02/25/25 02/26/25
21:01 02:54
Lactic Acid 2.1 H 1.2
Microbiology Results
02/25/25 Unknown Fungal Smear - Final
Valve No yeast or fungal elements seen.
Fungal Culture - Preliminary
Culture in progress.
Positive cultures are reported as soon as detected.
Final report to follow in four to five weeks.
02/25/25 Unknown Fungal Smear - Final
Valve No yeast or fungal elements seen.
Fungal Culture - Preliminary
Culture in progress.
Positive cultures are reported as soon as detected.
Final report to follow in four to five weeks.
02/25/25 Unknown Anaerobic Culture - Preliminary
Valve Culture pending. Anaerobic cultures are examined after 3
days incubation. Additional information to follow.
02/25/25 Unknown Tissue Culture - Preliminary
Valve No Growth After 18-24 Hours
Gram Stain - Preliminary
02/25/25 Unknown Anaerobic Culture - Preliminary
Heart Culture pending. Anaerobic cultures are examined after 3
days incubation. Additional information to follow.
02/25/25 Unknown Tissue Culture - Preliminary
Valve No Growth After 18-24 Hours
Gram Stain - Preliminary
02/22/25 10:16 Blood Culture - Preliminary
Blood/Venous No Growth in 4 days- Final report to follow
02/22/25 09:37 Blood Culture - Preliminary
Blood/Venous No Growth in 4 days- Final report to follow
Therapeutic Drug Monitoring
Vancomycin Peak 25.5 ug/ml (18-26) 02/26/25 21:29
Vancomycin Trough 15.0 ug/ml (5-20) 02/27/25 03:52
--- NOTE | 2025-02-27 07:55 | W.PN.CD ---
Addendum entered and electronically signed by Micheal Ashby MD 02/27/25 10:13:
CT images reviewed personally: right dominant system, moderate calcium in proximal LAD, some disease in distal LM, cannot full exclude obstructive disease (not protocoled for coronary imaging)
Original Note:
Today's Communication / Plan
-
diuresis
eventual GDMT
consider Cv prior to d/c
eventual formal ischemic eval
Impression / Plan
-
Bicuspid aortic valve with mod-severe aortic stenosis with echo density on [facility] possible mobile calcium S/P Median sternotomy/AVR (#29 Inspiris Resilia)/Annular debridement/[facility] MAZE procedure/Exclusion of KHALIDA w/ 35mm AtriClip/Excision (by
Alejandro, 02/25/25)
-Looks well clinically today; feels well.
-On low-dose Levophed and dobutamine, cont. to wean as tolerated
-high CVP and positive fluid balance, agree with diuresis
-Slightly elevated heart rates to 120s when in 2:1 conduction Aflutter; continue amiodarone drip.
-Continue routine postsurgical care as directed by CT Surgery.
Acute systolic heart failure, EF 20
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
-CTA did not demonstrate extensive proximal LM/LAD/LCx dz, consider formal ischemic eval as outpatient
-initiate GDMT as tolerated once off norepi/dobutamine
New AF/Aflutter with RVR:
- Attempted cardioversion in the OR yesterday, consider repeat attempt at CV once fully loaded with amio prior to discharge
- Recommend lifelong systemic anticoagulation.
COPD:
-former smoker
-Recent treatment with doxycycline for PNA
TTE 02/26
SUMMARY
1. Normal left ventricular size, wall thickness and systolic function. No regional wall motion abnormalities are seen.
2. Borderline concentric left ventricular hypertrophy.
3. Ejection fraction is 60% by Julien's method of discs.
4. Right ventricular size and systolic function are within normal limits.
5. Status post XTW MitraClip. Gradient across the mitral valve is normal for this type of prosthesis. Trace to mild residual mitral regurgitation is seen.
6. Compared to a prior transthoracic echocardiogram study from 12/06/2024 Transmitral valve gradient in the context of MitraClip has fallen from 6-7 mmHg to 5 mmHg.
Physical Exam
Vital Signs/Labs
Vital Signs
Temp Pulse Resp BP Pulse Ox
37.2 C 79 30 127/64 92
02/27/25 07:00 02/27/25 07:00 02/27/25 07:00 02/27/25 07:00 02/27/25 07:00
02/26/25 02/27/25 02/28/25
06:59 06:59 06:59
Actual Weight 88.4 kg 89.6 kg
02/27/25 03:52
02/27/25 03:52
PT 18.5 Sec (11.4-14.6) H 02/27/25 03:52
INR 1.49 02/27/25 03:52
APTT 42.5 Sec (23.4-35.0) H 02/25/25 17:33
Magnesium 2.1 mg/dl (1.6-2.3) 02/27/25 03:52
Triglycerides 86 mg/dl (10-149) 02/21/25 20:44
LDL Cholesterol, Calc 52 mg/dl 02/21/25 20:44
VLDL Cholesterol, Calc 17 mg/dl (0-30) 02/21/25 20:44
HDL Cholesterol 46 mg/dl 02/21/25 20:44
TSH 3.07 uIU/ml (0.47-4.68) 02/23/25 03:24
Physical Exam
Constitutional: Comfortable
Cardiovascular: Other (tachycardic, regular)
Respiratory: Respiratory effort normal
Neuro/Psych: AO x 3
Data Reviewed
-
Date of Service: February 27, 2025
Medical Decision Making: Reviewed Test Results
EKG: Tracing Personally Visualized and interpreted
Echo: Tracing Personally Visualized and interpreted
Labs: Labs Reviewed by me
--- NOTE | 2025-02-27 08:05 | W.PN.INTV ---
Today's Communication / Plan
Recommendations
Continue with rate control medications
Remains on dobutamine, norepinephrine being weaned
Diuresis per primary service
Pain control
Assessment
-
74-year-old male with new onset atrial fibrillation, heart failure, initially treated for pneumonia at [facility] found to have aortic mobile lesion, transferred to [facility]. Found to have possible bicuspid aortic valve with calcified
deposit, now status post AVR with biological valve replacement, maze procedure 02/25
S/p bio AVR, MAZE 02/25/25
New onset atrial fibrillation
Hospitalized at [facility], transferred to [facility] 02/22
EF 20%, preoperatively/intraoperatively
Improved to 35% postoperatively
Acute heart failure
Likely combination of aortic stenosis valve area 0.72 cm�, atrial fibrillation
Per [facility] 02/24/2025, EF 40%
Postoperative anemia
Conditions present prior to admission
Suspected COPD
History of seizure disorder
Distant tobacco history, quit 1989
Plan/recommendations
At this time, patient appears stable
Chest tube drainage noted
Chest x-ray with mild basilar atelectasis
Currently on dobutamine
Amiodarone also noted
Diuresis continues
Moving forward
Continue with management per CT surgery
Possible volume overload, diuresis continues
Atrial flutter/fibrillation noted
Consider repeat cardioversion per cardiology and CT surgery
Cardioversion in OR unsuccessful
Follow hemoglobin, stable
Follow blood sugars per protocol
Intraoperative EF improvement noted
pain control, incentive spirometry
Mild bibasilar atelectasis per chest x-ray
Airway clearance
Out of bed to chair as able
Await pathology
Reviewed with critical care nursing
TCCT 31 min
Subjective Dataa
Subjective Data
Date of Service:
Date of Service: February 27, 2025
Subjective:
Patient appears to be comfortable. Mild incisional discomfort noted, feels like he wants to get out of bed. Denies nausea, significant shortness of breath
Objective Data
Data Reviewed
Vital Signs / I&O / Oxygen:
Vital Signs
Temp Pulse Resp BP Pulse Ox
98.9 F 79 30 127/64 92
02/27/25 07:00 02/27/25 07:00 02/27/25 07:00 02/27/25 07:00 02/27/25 07:00
Intake and Output
02/26/25 02/27/25 02/28/25
06:59 06:59 06:59
Intake Total 2934.3 / 3047.0 3806.4 / 3844.1 37.7 / 37.7
Output Total 2054 / 2074 1165 / 1225 60 / 60
Balance 879.3 / 972.0 2641.4 / 2619.1 -22.3 / -22.3
SaO2 [SIMV] 96
SaO2 92
Nasal Cannula flow liters per 2
minute
Physical Exam
General: Comfortable and Other (IJ, chest tube)
HEENT: Normocephalic and Anicteric
Cardiovascular: S1-S2, Regular Rhythm and Murmur (n)
Respiratory: Wheeze (n), Crackles (n), Rhonchi (n) and Non-Labored Respirations
GI: Soft, Non Distended and Non Tender
Neurology: Awake, Alert and No Motor Deficits
Skin: Jaundice (n), Rash (n) and Bruising
Labs/Micro/Reports
Lab Data
02/27/25 03:52
02/27/25 03:52
Laboratory Results
02/26/25 02/27/25
21:29 03:52
PT 18.5 H
INR 1.49
pH 7.51 H 7.48 H
pCO2 29 L 30 L
pO2 106 106
HCO3 23.1 22.3
O2 Delivery Level 2l
Microbiology
02/25/25 Unknown Valve Fungal Smear - Final
No yeast or fungal elements seen.
02/25/25 Unknown Valve Fungal Culture - Preliminary
Culture in progress.
Positive cultures are reported as soon as detected.
Final report to follow in four to five weeks.
02/25/25 Unknown Valve Fungal Smear - Final
No yeast or fungal elements seen.
02/25/25 Unknown Valve Fungal Culture - Preliminary
Culture in progress.
Positive cultures are reported as soon as detected.
Final report to follow in four to five weeks.
02/25/25 Unknown Valve Anaerobic Culture - Preliminary
Culture pending. Anaerobic cultures are examined after 3
days incubation. Additional information to follow.
02/25/25 Unknown Valve Tissue Culture - Preliminary
No Growth After 18-24 Hours
02/25/25 Unknown Valve Gram Stain - Preliminary
02/25/25 Unknown Heart Anaerobic Culture - Preliminary
Culture pending. Anaerobic cultures are examined after 3
days incubation. Additional information to follow.
02/25/25 Unknown Valve Tissue Culture - Preliminary
No Growth After 18-24 Hours
02/25/25 Unknown Valve Gram Stain - Preliminary
02/22/25 10:16 Blood/Venous Blood Culture - Preliminary
No Growth in 4 days- Final report to follow
02/22/25 09:37 Blood/Venous Blood Culture - Preliminary
No Growth in 4 days- Final report to follow
--- NOTE | 2025-02-27 08:45 | W.PN.ID1 ---
Date of Service
Date of Service: February 27, 2025
Today's Communication
- pathology pending
- continue vancomycin and ceftriaxone pending the pathology
Assessment / Plan
Possible endocarditis
Bicuspid AV with dense calcification
Severe
- 02/25 s/p AVR, MAZE, KHALIDA exclusion
- 02/22 blood cultures x2 sets are in progress no growth to date, he did have recent doxycycline
- 02/21 HR blood cultures are finalized negative
- valve cultures in progress aerobic, anaerobic fungal and AFB - note lab's comment that the sample leaked and may have been contaminated- no growth to date
- overall history is less concerning for an infectious process, most consistent with mobile calcium deposit
- pathology pending
- continue vancomycin and ceftriaxone pending the pathology
patient is critically ill at this time
Chief Complaint
-: Other (possible endocarditis)
Subjective / Review of Systems
afebrile
remains on dobutamine
Vital Signs / Physical Exam
Vital Signs
Vital Signs
Temp Pulse Resp BP Pulse Ox
98.9 F 79 30 127/64 92
02/27/25 07:00 02/27/25 07:00 02/27/25 07:00 02/27/25 07:00 02/27/25 07:00
Physical Exam
Constitutional: No Acute Distress
Cardiovascular: Regular Rate and S1/S2; Negative Murmur or Rub
Pulmonary: Clear and Symmetric; Negative Wheezes or Rales
Gastrointestinal: Soft, Non Tender, Non Distended and Normal Bowel Sounds
Skin: Warm and Dry; Negative Rash or Jaundice
Objective Data
Lab Data
Lab Results
02/27/25 03:52
02/27/25 03:52
PT 18.5 Sec (11.4-14.6) H 02/27/25 03:52
INR 1.49 02/27/25 03:52
APTT 42.5 Sec (23.4-35.0) H 02/25/25 17:33
Estimated Creat Clear 72 ml/min 02/27/25 03:52
Lactic Acid 1.2 mmol/L (0.7-2.0) 02/26/25 02:54
Total Bilirubin 0.6 mg/dl (0.2-1.3) 02/26/25 12:36
AST 57 U/L (17-59) 02/26/25 12:36
ALT 24 U/L (0-50) 02/26/25 12:36
Alkaline Phosphatase 69 U/L (38-126) 02/26/25 12:36
Most recent labs reviewed.
Micro Results:
02/25/25 Unknown Anaerobic Culture - Preliminary
Heart Culture pending. Anaerobic cultures are examined after 3
days incubation. Additional information to follow.
02/25/25 Unknown Tissue Culture - Preliminary
Valve No Growth After 48 Hours
Gram Stain - Preliminary
02/25/25 Unknown Tissue Culture - Preliminary
Valve No Growth After 48 Hours
Gram Stain - Preliminary
02/25/25 Unknown Anaerobic Culture - Preliminary
Valve Culture pending. Anaerobic cultures are examined after 3
days incubation. Additional information to follow.
02/25/25 Unknown Fungal Smear - Final
Valve No yeast or fungal elements seen.
Fungal Culture - Preliminary
Culture in progress.
Positive cultures are reported as soon as detected.
Final report to follow in four to five weeks.
02/25/25 Unknown Fungal Smear - Final
Valve No yeast or fungal elements seen.
Fungal Culture - Preliminary
Culture in progress.
Positive cultures are reported as soon as detected.
Final report to follow in four to five weeks.
02/22/25 10:16 Blood Culture - Preliminary
Blood/Venous No Growth in 4 days- Final report to follow
02/22/25 09:37 Blood Culture - Preliminary
Blood/Venous No Growth in 4 days- Final report to follow
02/25/25 Unknown Acid Fast Bacilli Smear - Pending
Valve Acid Fast Bacilli Culture - Pending
02/25/25 Unknown Acid Fast Bacilli Smear - Pending
Valve Acid Fast Bacilli Culture - Pending
02/21/25 21:25 MRSA Screen - Final
Nose No Methicillin Resistant Staphylococcus aureus isolated.
--- NOTE | 2025-02-27 09:00 | PTCARENOTE ---
Assumed care of patient. Walking rounds completed with previous RN. Pt assessed while he was lying in bed. Pt alert and oriented x4. Pt denies pain, nausea, and shortness of breath. SANTANA with equal strength throughout. Afib on tele with rates in the
60s-70s. BP 100s/50s via bebeto. Heart tones audible. Bilateral radial and DP pulses palpable. Generalized +1 edema noted. CI 2.14. PA pressures 50s/20s. CVP 20s. POX 93% on 2L NC. Lungs diminished in the bases. Occasional moist nonproductive cough
noted. IS 750mL achieved. Mediastinal chest tubes x2 y-sited to 1 atrium to -20cm suction draining serosanguineous fluid. Right and Left pleural chest tubes y-sited to 1 atrium to -20cm suction draining serosanguineous fluid. No air leaks tidaling
crepitus noted. Abdomen soft, round, nontender. Hypoactive BS. Tolerating diet. Pacheco catheter intact draining adequate amounts of clear yellow urine. Sternal incision covered with Aquacel-CDI. CT dressing CDI. Right IJ cordis and swan floated to
42cm. PIV x2 intact. Left radial bebeto intact with positional waveform. All lines flushed, leveled, zeroed. Dobutamine infusing 3. Cardene titrated off. See MAR for medication administration. See worklist for complete nursing assessment. Plan of
care reviewed and patient in agreement.
[2025-02-27] MEDS: SENOKOT 8.6 MG PO ×2 (09:19→20:16)
[2025-02-27] MEDS: NEURONTIN 100 MG PO ×3 (09:19→21:03)
[2025-02-27] MEDS: PACERONE 200 MG PO ×2 (09:19→16:07)
[2025-02-27] MEDS: BACTROBAN 2% OINTMENT 1 APPLIC NASAL ×2 (09:19→20:17)
[2025-02-27] MEDS: LIDOCAINE 4% PATCH TOPICAL (09:19)
[2025-02-27] MEDS: MAGNESIUM OXIDE 400 MG PO ×2 (09:19→20:16)
[2025-02-27] MEDS: PROTONIX 40 MG PO (09:19)
[2025-02-27] MEDS: LOW STRENGTH ASPIRIN 81 MG PO (09:24)
[2025-02-27] MEDS: LUMINAL 64.8 MG PO ×2 (09:24→20:16)
--- NOTE | 2025-02-27 09:50 | W.PN.CT ---
Today's Communication / Plan
-
-pod #2
-CI 2.59, cO 5.25, mvO2 51.8. Drips: Dobut 4, Amio 0.5.
-CT outputs: 2 meds 110/505, 2 pleur in 1224 hrs
-Had 500 of LR on 02/26
-rhythm alternating between a-flutter 110s and a-fib 70s overnight
-wean off Dobut as tolerared
-maintain pw
-holding BB while on Dobut
-encourage IS, OOB
Assessment / Plan
-
Assessment:
-S/P Median sternotomy/AVR (#29 Inspiris Resilia)/ Annular debridement/[facility] MAZE procedure/Exclusion of KHALIDA w/ 35mm AtriClip/Excision of mobile calcium and BAV (sent for microbiologic analysis), by Dr. Allen, 02/25/25, pod#2
Assessment:
-Bicuspid AV w/ moderate to severe stenosis, moderate regurgitation, and mobile calcium vs. vegetation
-LVEF 20%, improved to 35% postop per intraop [facility]
-Dilated asc. aorta (4.2 cm)
-New onset A-fib with RVR
-Hx TIA/CVA
-Seizure disorder
-Hypothyroidism
-COPD
-Former tobacco use (quit 37 years ago)
-DVT/PE
-Transaminitis
-GERD
-S/P LE vein stripping
-Acute postop blood loss/Anemia (stable without transfusion)
-Acute postop hypothrombocytopenia
-Acute postop atelectasis
-Acute postop hypovolemia with subsequent hypervolemia
-Acute posto RBBB
Discussed patient care with: Nursing and Care Team
Subjective
Procedure
Median sternotomy/AVR (#29 Inspiris Resilia)/ Annular debridement/[facility] MAZE procedure/Exclusion of KHALIDA w/ 35mm AtriClip/Excision of mobile calcium and BAV (sent for microbiologic analysis), by Dr. Allen, 02/25/25
-
Date of Service: February 27, 2025
Objective Data
-
Lab Results
02/27/25 03:52
02/27/25 03:52
PT 18.5 Sec (11.4-14.6) H 02/27/25 03:52
INR 1.49 02/27/25 03:52
APTT 42.5 Sec (23.4-35.0) H 02/25/25 17:33
Vital Signs
Vital Signs
Temp Pulse Resp BP Pulse Ox
98.8 F 65 28 120/101 93
02/27/25 09:00 02/27/25 09:15 02/27/25 09:15 02/27/25 09:12 02/27/25 09:15
CT Intake/Output/Weight
02/26/25 02/27/25 02/27/25
18:59 06:59 18:59
Intake Total 2336.9 / 3844.1 1469.5 / 3844.1 370.6 / 370.6
Output Total 645 / 1225 520 / 1225 180 / 180
Balance 1691.9 / 2619.1 949.5 / 2619.1 190.6 / 190.6
SaO2: 93
Physical Exam
-
General: Awake and AOx3
Cardiovascular: Irregular rate & rhythm (alternates between rapid a-flutter 110s and a-fib 70s hr), No Murmurs and No Rub
Respiratory: Decreased Breath Sounds
Sternum: Stable
Incision: Clean and Intact
Extremities: No Edema
Data Reviewed
-
Lab Results: Results Reviewed
Medications: Active Meds Reviewed
Chest X-Ray: Report Reviewed and Image Reviewed
ECG: Report Reviewed and Image Reviewed
[2025-02-27] MEDS: NSS IV (10:36)
--- NOTE | 2025-02-27 12:00 | PTCARENOTE ---
Pt reassessed. Resting in bed receiving 1 unit PRBC. POX 97% on 2L NC. Surgical sites stable. UO this hour adequate with gisell urine. Aflutter on tele with rates in the 80s-90s. BP significantly different from bebeto and cuff. All lines remain
intact. CT output WNL.
[2025-02-27] MEDS: DOBUTREX 250 IV (12:23)
[2025-02-27] MEDS: LASIX 20 MG IV (12:23)
--- NOTE | 2025-02-27 13:08 | PTCARENOTE ---
Pt assisted OOB with 2 assist. Left radial bebeto very positional, arm board placed. CT PHLEBOTOMY INSTRUCTOR notified.
--- NOTE | 2025-02-27 16:00 | PTCARENOTE ---
Pt reassessed while he was sitting up in the chair. Aflutter with rates in the 70s. BP 114/47 via cuff, 144 via bebeto. POX 96% on RA. Surgical sites stable. CT output WNL. UO adequate. CI 1.61, Dobutamine at 2, CT PA notified.
--- NOTE | 2025-02-27 17:15 | PTCARENOTE ---
Dr. Allen notified of CI 1.68, orders to keep Dobutamine at 2.
[2025-02-27] MEDS: REMOVE LIDOCAINE PATCH REMOVE (20:16)
--- NOTE | 2025-02-27 21:00 | PTCARENOTE ---
Assumed care of pt from roger RN. Pt resting in bed at this time. AAOx4. SANTANA. Appropriate. A-flutter (or a-fib) on the tele monitor. HR 70s. A-line BP's and cuff BP's differ. A-line 140s-150s/40s. Cuff 110's-130s/50s. CVP ~ teens. PAPs 40s/teens.
CI 1.63, CO 3.31, SVR 1208. Palpable pulses throughout. Trace generalized edema. Pt on RA. POX 91-96%. Lung sounds diminished in the bases. Occasional non productive cough. Deep breathing and IS encouraged. Mediastinal CTx2 and R/L pleural CT to -20
suction, no airleaks noted, and output as documented. Abdomen soft. +BSx4. Pacheco catheter intact and draining yellow urine. Right IJ cordis w/ swan, left radial a-line, and PIVx2 intact. All lines leveled, zeroed, and flushed. All surgical sites
stable. Pt repositioned as needed. See worklist for full nursing assessment and interventions. Dobutamine infusing as ordered. Call shaw within reach.
[2025-02-28] VITALS (25 sets, daily range): BP systolic 89–159; BP diastolic 45–127; PULSE 74; O2SAT 93–96; BMI 30.1
--- NOTE | 2025-02-28 00:39 | PTCARENOTE ---
No acute changes in assessment. Neuro unchanged. A-flutter on the tele monitor. HR 70-80s. A-line/cuff BP remain slightly different. A-line BP 150s/70s. Cuff BP 130-140s/60s. PAPs 40s/teens. CVP ~17. CI 1.82, CO 3.69, SVR 1604. Pt placed on 2 L NC.
POX dropping to low 80s, then would recover. POX consistent @95% + on 2 L NC. CTx4 assessment unchanged, output as documented. Pacheco catheter intact and draining yellow urine. All lines leveled, zeroed, and flushed. All surgical sites stable at this
time. Call shaw within reach.
--- NOTE | 2025-02-28 03:59 | W.PN.CT ---
Today's Communication / Plan
-
-pod #3
-CI 2.16, CO 4.38, SVR 1497. Drips: Dobut 2
-CT outputs: 2 meds 60/270, 2 pleur 110/250 in 1224 hrs
-s/p 1 pRBC, followed by 20 iv Lasix on 02/27 (UO 710/2040 in 12/24 hrs)
-remains in a-fib 70s-80s overnight
-Amio held d/t bradycardia
-holding BB while on Dobut
-wean off Dobut as tolerared
-labs pending
-maintain pw
-on Vanco and Ceftriaxone per ID pending pathology. Tmax 100.7- follow
-appreciate everyone's input
-encourage IS, OOB
Assessment / Plan
-
Assessment:
-S/P Median sternotomy/AVR (#29 Inspiris Resilia)/ Annular debridement/[facility] MAZE procedure/Exclusion of KHALIDA w/ 35mm AtriClip/Excision of mobile calcium and BAV (sent for microbiologic analysis), by Dr. Allen, 02/25/25, pod#3
Assessment:
-Bicuspid AV w/ moderate to severe stenosis, moderate regurgitation, and mobile calcium vs. vegetation
-LVEF 20%, improved to 35% postop per intraop [facility]
-Dilated asc. aorta (4.2 cm)
-New onset A-fib with RVR
-Hx TIA/CVA
-Seizure disorder
-Hypothyroidism
-COPD
-Former tobacco use (quit 37 years ago)
-DVT/PE
-Transaminitis
-GERD
-S/P LE vein stripping
-Acute postop blood loss/Anemia (stable without transfusion)
-Acute postop hypothrombocytopenia
-Acute postop atelectasis
-Acute postop hypovolemia with subsequent hypervolemia
-Acute posto RBBB
Discussed patient care with: Nursing and Care Team
Subjective
Procedure
Median sternotomy/AVR (#29 Inspiris Resilia)/ Annular debridement/[facility] MAZE procedure/Exclusion of KHALIDA w/ 35mm AtriClip/Excision of mobile calcium and BAV (sent for microbiologic analysis), by Dr. Allen, 02/25/25
-
Date of Service: February 28, 2025
Objective Data
-
PT 18.5 Sec (11.4-14.6) H 02/27/25 03:52
INR 1.49 02/27/25 03:52
APTT 42.5 Sec (23.4-35.0) H 02/25/25 17:33
Vital Signs
Vital Signs
Temp Pulse Resp BP Pulse Ox
98.6 F 82 24 153/74 98
02/28/25 03:00 02/28/25 03:00 02/28/25 03:00 02/28/25 03:00 02/28/25 03:00
CT Intake/Output/Weight
02/27/25 02/27/25 02/28/25
06:59 18:59 06:59
Intake Total 1469.5 / 3844.1 1151.8 / 1415.2 263.4 / 1415.2
Output Total 520 / 1225 1680 / 2560 880 / 2560
Balance 949.5 / 2619.1 -528.2 / -1144.8 -616.6 / -1144.8
SaO2: 98
Physical Exam
-
General: Awake and AOx3
Cardiovascular: Irregular rate & rhythm (alternates between rapid a-flutter 110s and a-fib 70s hr), No Murmurs and No Rub
Respiratory: Decreased Breath Sounds
Sternum: Stable
Incision: Clean and Intact
Extremities: No Edema
Data Reviewed
-
Lab Results: Results Reviewed
Medications: Active Meds Reviewed
Chest X-Ray: Report Reviewed and Image Reviewed
ECG: Report Reviewed and Image Reviewed
--- NOTE | 2025-02-28 04:22 | PTCARENOTE ---
Pt reassessed. No acute changes in assessment. A-flutter (or fib) on the tele monitor. Rate controlled. HR 70-80s. Cuff BPs stable. A-line BPs higher - 170s/80s. CT ABIGAIL aware, go by cuff pressure. PAPs 40s/20s. CVP ~teens. CI 2.16, CO 4.38, SVR
1497. Pt on 2 L NC. POX 98-100%. CTx4 assessment unchanged, output as documented. Pacheco catheter intact and draining yellow urine. All surgical sites stable. Labs drawn and sent. Pt repositioned in bed. No c/o pain at this time. Call shaw within
reach.
[2025-02-28 04:32] LABS: INR 1.45; PT 18.2 Sec (11.4-14.6)
[2025-02-28 04:45] LABS: Blood Urea Nitrogen 19 mg/dl (9-20); Calcium 8.2 mg/dl (8.4-10.2); Carbon Dioxide 24 mmol/L (22-30); Chloride 105 mmol/L (98-107); Estimated Creatinine Clearance 81 ml/min; Glucose 104 mg/dl (70-99); Magnesium 2.1 mg/dl (1.6-2.3); Potassium 4.3 mmol/L (3.5-5.1); Sodium 136 mmol/L (135-145); eGFR > 60.00
[2025-02-28 04:54] LABS: Hematocrit 28.6 % (39.0-52.0); Hemoglobin 9.4 g/dL (13.0-18.0); Mean Corp Hgb Conc. 32.9 g/dL (33.0-37.0); Mean Corpuscular Volume 100.0 fL (80.0-94.0); Platelet Count 134 10^3/uL (130-400); Red Cell Dist. Width 14.2 % (11.5-14.5)
[2025-02-28] MEDS: TYLENOL 975 MG PO ×3 (05:11→21:27)
[2025-02-28] MEDS: SYNTHROID 50 MCG PO (05:11)
[2025-02-28] MEDS: STERILE WATER FOR INJECTION 20 ML IV ×2 (05:12→17:23)
[2025-02-28] MEDS: VANCOCIN 200 IV ×2 (05:12→17:23)
[2025-02-28] MEDS: ROCEPHIN 2000 MG IV ×2 (05:12→17:23)
--- NOTE | 2025-02-28 07:44 | W.PN.INTV ---
Today's Communication / Plan
Recommendations
Dobutamine being weaned
Diuresis continues
Remains on antibiotics
Transfusion per CT surgery
Once transferred to telemetry, we will sign off. Please call with questions
Assessment
-
74-year-old male with new onset atrial fibrillation, heart failure, initially treated for pneumonia at [facility] found to have aortic mobile lesion, transferred to [facility]. Found to have possible bicuspid aortic valve with calcified
deposit, now status post AVR with biological valve replacement, maze procedure 02/25
S/p bio AVR, MAZE 02/25/25
New onset atrial fibrillation
Hospitalized at [facility], transferred to [facility] 02/22
EF 20%, preoperatively/intraoperatively
Improved to 35% postoperatively
Acute heart failure
Likely combination of aortic stenosis valve area 0.72 cm�, atrial fibrillation
Per [facility]ES 02/24/2025, EF 40%
Postoperative anemia
Conditions present prior to admission
Suspected COPD
History of seizure disorder
Distant tobacco history, quit 1989
Plan/recommendations
At this time, patient appears stable, remains on dobutamine drip
Chest tube drainage noted
Chest x-ray with mild basilar atelectasis
Amiodarone held due to bradycardia
Diuresis continues, negative fluid balance
Moving forward
Continue with management per CT surgery
Possible volume overload, diuresis continues
Atrial flutter/fibrillation noted
Consider repeat cardioversion per cardiology and CT surgery
Cardioversion in OR unsuccessful
Cardiology following
Follow hemoglobin, stable
Follow blood sugars per protocol
Transfuse 1 unit noted
Intraoperative EF improvement noted
pain control, incentive spirometry
Mild bibasilar atelectasis per chest x-ray
Airway clearance
Out of bed to chair as able
Await pathology
Remains on antibiotics. ID following
Reviewed with critical care nursing
Once transferred to telemetry, we will sign off. Please call with questions
Subjective Dataa
Subjective Data
Date of Service:
Date of Service: February 28, 2025
Subjective:
Patient is sitting in chair, without complaints. Denies shortness of breath, nausea, abdominal pain. Negative fluid status is noted. Remains on dobutamine and antibiotics
Objective Data
Data Reviewed
Vital Signs / I&O / Oxygen:
Vital Signs
Temp Pulse Resp BP Pulse Ox
98.9 F 87 20 130/92 96
02/28/25 05:00 02/28/25 06:30 02/28/25 06:30 02/28/25 06:00 02/28/25 06:30
Intake and Output
02/27/25 02/28/25 03/01/25
06:59 06:59 06:59
Intake Total 3806.4 / 3844.1 1493.0 / 1493.0
Output Total 1165 / 1225 2805 / 2805
Balance 2641.4 / 2619.1 -1312.0 / -1312.0
SaO2 [SIMV] 96
SaO2 96
Nasal Cannula flow liters per 2
minute
Physical Exam
General: Comfortable and Other (IJ, chest tube)
HEENT: Normocephalic and Anicteric
Cardiovascular: S1-S2, Regular Rhythm and Murmur (n)
Respiratory: Wheeze (n), Crackles (n), Rhonchi (n), Non-Labored Respirations and Other (Decreased at base)
GI: Soft, Non Distended and Non Tender
Neurology: Awake, Alert and No Motor Deficits
Skin: Jaundice (n), Rash (n) and Bruising
Labs/Micro/Reports
Lab Data
02/28/25 04:09
02/28/25 04:09
Laboratory Results
02/28/25
04:09
PT 18.2 H
INR 1.45
Microbiology
02/25/25 Unknown Valve Acid Fast Bacilli Smear - Preliminary
02/25/25 Unknown Valve Acid Fast Bacilli Culture - Preliminary
02/25/25 Unknown Valve Acid Fast Bacilli Smear - Preliminary
02/25/25 Unknown Valve Acid Fast Bacilli Culture - Preliminary
02/22/25 10:16 Blood/Venous Blood Culture - Final
No Growth - Final Report
02/25/25 Unknown Valve Tissue Culture - Preliminary
No Growth After 48 Hours
02/25/25 Unknown Valve Gram Stain - Preliminary
02/22/25 09:37 Blood/Venous Blood Culture - Final
No Growth - Final Report
02/25/25 Unknown Heart Anaerobic Culture - Preliminary
Culture pending. Anaerobic cultures are examined after 3
days incubation. Additional information to follow.
02/25/25 Unknown Valve Tissue Culture - Preliminary
No Growth After 48 Hours
02/25/25 Unknown Valve Gram Stain - Preliminary
02/25/25 Unknown Valve Anaerobic Culture - Preliminary
Culture pending. Anaerobic cultures are examined after 3
days incubation. Additional information to follow.
02/25/25 Unknown Valve Fungal Smear - Final
No yeast or fungal elements seen.
02/25/25 Unknown Valve Fungal Culture - Preliminary
Culture in progress.
Positive cultures are reported as soon as detected.
Final report to follow in four to five weeks.
02/25/25 Unknown Valve Fungal Smear - Final
No yeast or fungal elements seen.
02/25/25 Unknown Valve Fungal Culture - Preliminary
Culture in progress.
Positive cultures are reported as soon as detected.
Final report to follow in four to five weeks.
--- NOTE | 2025-02-28 08:00 | PTCARENOTE ---
Resumed care of patient. Walking rounds completed with previous RN. Pt assessed while he was sitting in the chair. Pt alert and oriented x4. Pt denies pain, shortness of breath, and nausea. SANTANA with equal strength throughout. Aflutter with PACs on
tele with rates in the 70s. BP 137/72 via cuff. PA pressures 40s/10s, CVP mid teens. CI 1.74, per Dr. Allen, decrease Dobutamine gtt to 1. Bilateral radial and DP pulses palpable. No edema noted. Epicardial v-wire set to back up , no pacing
noted. POX 98% on 2L NC, titrated to RA, POX 96%. Lungs diminished in the bases. IS encouraged-1000mL achieved. Occasional dry nonproductive cough. Mediastinal chest tubes x2 y-sited to 1 atrium draining serosanguineous fluid. Right and left pleural
chest tubes y-sited to 1 atrium to -20cm suction draining serosanguineous fluid. No air leaks, tidaling, crepitus noted. Abdomen soft, nontender. Hypoactive BS. Pt reports passing gas. Tolerating diet. Pacheco catheter intact draining adequate amounts
of clear yellow urine. Sternal incision covered with Aquacel-CDI. CT dressing CDI. Right IJ cordis with swan floated to 42cm. Left radial bebeto positional, arm board intact. PIV x2 intact. See MAR for medication administration. See worklist for
complete nursing assessment. Plan of care reviewed and patient in agreement.
[2025-02-28] MEDS: SENOKOT 8.6 MG PO ×2 (08:10→20:39)
[2025-02-28] MEDS: BACTROBAN 2% OINTMENT 1 APPLIC NASAL ×2 (08:10→20:40)
[2025-02-28] MEDS: LIDOCAINE 4% PATCH TOPICAL (08:10)
[2025-02-28] MEDS: PROTONIX 40 MG PO (08:10)
[2025-02-28] MEDS: NEURONTIN 100 MG PO ×3 (08:10→21:27)
[2025-02-28] MEDS: LOW STRENGTH ASPIRIN 81 MG PO (08:10)
[2025-02-28] MEDS: MAGNESIUM OXIDE 400 MG PO ×2 (08:10→20:39)
[2025-02-28] MEDS: LUMINAL 64.8 MG PO ×2 (08:10→20:39)
--- NOTE | 2025-02-28 08:49 | PHA.VAN.FU ---
Vancomycin Assessment / Plan
- Assessment
Renal Function: Stable
WBC's are: Trending Up
In the past 24 hrs, patient has been: Afebrile
Concomitant Antimicrobials: ceftriaxone
- Dosing Plan
Continue: Vanc 1000mg Q12H
- Monitoring Plan
Level(s) appropriate: Recheck trough at minimum of weekly intervals, Repeat sooner for changes in renal function or clinical status
Next Level Due (Date): ~03/06
- Follow Up
Pharmacy will continue to follow.
Vancomycin Follow UP
- -
Patient Age: 74
Patient Sex: Male
Vancomycin Day #: 7
Indication: Endocarditis
Requesting Provider: Dr Archer
Pertinent Antimicrobial Allergies:
penicillin G - Unknown told was allergic as a child
Height / Weight:
Height 5 ft 9 in
Actual Weight 92.5 kg
Pertinent Past Medical History: BMI ~29
- Vital Signs / Lab Results
Temp Pulse Resp BP Pulse Ox
99.0 F 74 20 137/72 96
02/28/25 08:00 02/28/25 08:15 02/28/25 06:30 02/28/25 08:00 02/28/25 08:15
Lab Results - Hematology
02/26/25 02/26/25 02/27/25
02:54 12:36 03:52
WBC 16.7 H 17.9 H 14.0 H
02/28/25
04:09
WBC 15.5 H
Lab Results - Chemistry
02/25/25 02/25/25 02/26/25
17:33 21:01 02:54
BUN 15 15 15
Creatinine 0.8 0.8 0.9
Estimated Creat Clear 81 81 72
Albumin 2.5 L
02/26/25 02/27/25 02/28/25
12:36 03:52 04:09
BUN 19 18 19
Creatinine 0.9 0.9 0.8
Estimated Creat Clear 72 72 81
Albumin 2.5 L
02/25/25 02/26/25
21:01 02:54
Lactic Acid 2.1 H 1.2
Microbiology Results
02/25/25 Unknown Acid Fast Bacilli Smear - Preliminary
Valve Acid Fast Bacilli Culture - Preliminary
02/25/25 Unknown Acid Fast Bacilli Smear - Preliminary
Valve Acid Fast Bacilli Culture - Preliminary
02/22/25 10:16 Blood Culture - Final
Blood/Venous No Growth - Final Report
02/25/25 Unknown Tissue Culture - Preliminary
Valve No Growth After 48 Hours
Gram Stain - Preliminary
02/22/25 09:37 Blood Culture - Final
Blood/Venous No Growth - Final Report
02/25/25 Unknown Anaerobic Culture - Preliminary
Heart Culture pending. Anaerobic cultures are examined after 3
days incubation. Additional information to follow.
02/25/25 Unknown Tissue Culture - Preliminary
Valve No Growth After 48 Hours
Gram Stain - Preliminary
02/25/25 Unknown Anaerobic Culture - Preliminary
Valve Culture pending. Anaerobic cultures are examined after 3
days incubation. Additional information to follow.
02/25/25 Unknown Fungal Smear - Final
Valve No yeast or fungal elements seen.
Fungal Culture - Preliminary
Culture in progress.
Positive cultures are reported as soon as detected.
Final report to follow in four to five weeks.
02/25/25 Unknown Fungal Smear - Final
Valve No yeast or fungal elements seen.
Fungal Culture - Preliminary
Culture in progress.
Positive cultures are reported as soon as detected.
Final report to follow in four to five weeks.
Therapeutic Drug Monitoring
Vancomycin Peak 25.5 ug/ml (18-26) 02/26/25 21:29
Vancomycin Trough 15.0 ug/ml (5-20) 02/27/25 03:52
[2025-02-28] MEDS: LASIX 40 MG IV (09:18)
--- NOTE | 2025-02-28 09:26 | W.PN.ID1 ---
Date of Service
Date of Service: February 28, 2025
Today's Communication
Await AV tissue pathology.
Assessment / Plan
Possible endocarditis
Bicuspid AV with dense calcification
Severe
- 02/25 s/p AVR, MAZE, KHALIDA exclusion
- 02/22 blood cultures x2 sets are in progress no growth to date, he did have recent doxycycline
- 02/21 HR blood cultures are finalized negative
- valve cultures in progress aerobic, anaerobic fungal and AFB - note lab's comment that the sample leaked and may have been contaminated- no growth to date
- overall history is less concerning for an infectious process, most consistent with mobile calcium deposit
- pathology pending
- continue vancomycin and ceftriaxone pending the pathology
- trend post-op leukocytosis
Chief Complaint
-: Other (possible endocarditis)
Subjective / Review of Systems
No complaints today.
Vital Signs / Physical Exam
Vital Signs
Vital Signs
Temp Pulse Resp BP Pulse Ox
99.2 F 72 20 107/57 94
02/28/25 09:00 02/28/25 09:00 02/28/25 06:30 02/28/25 09:00 02/28/25 09:00
Selected Entries
02/27/25
16:00 02/27/25
17:00
Temp core 100.5 F H 100.7 F H
Physical Exam
Constitutional: No Acute Distress and Comfortable
Eyes: No Conjunctival Hemorrhage and Sclera Anicteric
Cardiovascular: Regular Rate and S1/S2
Pulmonary: Rales (crackles at bases)
Gastrointestinal: Soft, Non Tender and Non Distended
Wound: Other (Strenal dressing dry)
Neurological: AO x 3
Objective Data
Lab Data
Lab Results
02/28/25 04:09
02/28/25 04:09
PT 18.2 Sec (11.4-14.6) H 02/28/25 04:09
INR 1.45 02/28/25 04:09
APTT 42.5 Sec (23.4-35.0) H 02/25/25 17:33
Estimated Creat Clear 81 ml/min 02/28/25 04:09
Lactic Acid 1.2 mmol/L (0.7-2.0) 02/26/25 02:54
Total Bilirubin 0.6 mg/dl (0.2-1.3) 02/26/25 12:36
AST 57 U/L (17-59) 02/26/25 12:36
ALT 24 U/L (0-50) 02/26/25 12:36
Alkaline Phosphatase 69 U/L (38-126) 02/26/25 12:36
Most recent labs reviewed.
Micro Results:
02/25/25 Unknown Acid Fast Bacilli Smear - Preliminary
Valve Acid Fast Bacilli Culture - Preliminary
02/25/25 Unknown Acid Fast Bacilli Smear - Preliminary
Valve Acid Fast Bacilli Culture - Preliminary
02/22/25 10:16 Blood Culture - Final
Blood/Venous No Growth - Final Report
02/25/25 Unknown Tissue Culture - Preliminary
Valve No Growth After 48 Hours
Gram Stain - Preliminary
02/22/25 09:37 Blood Culture - Final
Blood/Venous No Growth - Final Report
02/25/25 Unknown Anaerobic Culture - Preliminary
Heart Culture pending. Anaerobic cultures are examined after 3
days incubation. Additional information to follow.
02/25/25 Unknown Tissue Culture - Preliminary
Valve No Growth After 48 Hours
Gram Stain - Preliminary
02/25/25 Unknown Anaerobic Culture - Preliminary
Valve Culture pending. Anaerobic cultures are examined after 3
days incubation. Additional information to follow.
02/25/25 Unknown Fungal Smear - Final
Valve No yeast or fungal elements seen.
Fungal Culture - Preliminary
Culture in progress.
Positive cultures are reported as soon as detected.
Final report to follow in four to five weeks.
02/25/25 Unknown Fungal Smear - Final
Valve No yeast or fungal elements seen.
Fungal Culture - Preliminary
Culture in progress.
Positive cultures are reported as soon as detected.
Final report to follow in four to five weeks.
02/21/25 21:25 MRSA Screen - Final
Nose No Methicillin Resistant Staphylococcus aureus isolated.
--- NOTE | 2025-02-28 12:00 | PTCARENOTE ---
Pt reassessed, resting in bed. Aflutter on tele with PACs with rates in the 70s-80s. BP 111/53 via cuff. POX 94% on RA. Surgical sites stable. CT output WNL, monitoring output to potentially d/c CTs. Pacheco draining adequate amounts of clear yellow
urine. All lines remain intact. Dobutamine infusing at 1.
--- NOTE | 2025-02-28 12:09 | CARDSERVDEF ---
Echocardiogram with Definity completed after protocol screening completed. Allergies verified.
Patent IV site: __L AC___
IV site flushed with 0.9% NaCl pre and post administration.
Diluted bolus method utilized to enhance visualization of ventricular vides.
Total volume given: __2__ mL
Patient tolerated all procedures well without complications.
--- NOTE | 2025-02-28 13:48 | W.PN.CD ---
Today's Communication / Plan
-
dobutamine now off (turned off this afternoon): assess to start GDMT tomorrow, likely starting with Toprol XL
Impression / Plan
-
Bicuspid aortic valve with mod-severe aortic stenosis with echo density on [facility]ES possible mobile calcium S/P Median sternotomy/AVR (#29 Inspiris Resilia)/Annular debridement/[facility] MAZE procedure/Exclusion of KHALIDA w/ 35mm AtriClip/Excision (by
Alejandro, 02/25/25)
-Looks well clinically today; feels well.
-dobutamine turned off today (02/28)
Acute systolic heart failure, EF 20%, severe
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
-CTA did not demonstrate extensive proximal LM/LAD/LCx dz, consider formal ischemic eval as outpatient
-dobutamine now off, assess to start GDMT tomorrow, likely starting with Toprol XL
-continue IV lasix, with close monitoring of labs/tele
New atrial fibrillation:
- Attempted cardioversion in the OR yesterday, consider repeat attempt at CV once fully loaded with amio prior to discharge
- Recommend lifelong systemic anticoagulation to start when safe post op
COPD:
-former smoker
-Recent treatment with doxycycline for PNA
Physical Exam
Vital Signs/Labs
Vital Signs
Temp Pulse Resp BP Pulse Ox
100.2 F 73 20 111/53 93
02/28/25 12:00 02/28/25 12:17 02/28/25 12:00 02/28/25 12:17 02/28/25 12:17
02/27/25 02/28/25 03/01/25
06:59 06:59 06:59
Actual Weight 89.6 kg 92.5 kg
02/28/25 04:09
02/28/25 04:09
PT 18.2 Sec (11.4-14.6) H 02/28/25 04:09
INR 1.45 02/28/25 04:09
APTT 42.5 Sec (23.4-35.0) H 02/25/25 17:33
Magnesium 2.1 mg/dl (1.6-2.3) 02/28/25 04:09
Triglycerides 86 mg/dl (10-149) 02/21/25 20:44
LDL Cholesterol, Calc 52 mg/dl 02/21/25 20:44
VLDL Cholesterol, Calc 17 mg/dl (0-30) 02/21/25 20:44
HDL Cholesterol 46 mg/dl 02/21/25 20:44
TSH 3.07 uIU/ml (0.47-4.68) 02/23/25 03:24
Physical Exam
Constitutional: No acute distress and Comfortable
EENT: Moist mucous membranes
Cardiovascular: Pedal edema is absent, JVD pressure is normal, Systolic murmur absent and Rhythm/rate is irregular
Respiratory: Respiratory effort normal and Lungs clear to auscul.
Neuro/Psych: AO x 3
Data Reviewed
-
Date of Service: February 28, 2025
EKG: Other (Tele: A fib 70s-80s)
Labs: Labs Reviewed by me
--- NOTE | 2025-02-28 16:30 | PTCARENOTE ---
Pt reassessed. Aflutter with PVCs with rates in the 70s. BP 107/63. POX 94%. Surgical sites stable. Pacheco draining adequate amounts of clear yellow urine. CTs still draining, no significant output. CI 2.0. Orders to d/c stephany. Completed. Pt
assisted to ambulate in the dean with 2 assist. Tolerated.
[2025-02-28] MEDS: PACERONE 200 MG PO ×2 (16:31→21:27)
[2025-02-28] MEDS: NSS 500 IV (17:23)
[2025-02-28] MEDS: COUMADIN 2.5 MG PO (17:23)
[2025-02-28] MEDS: REMOVE LIDOCAINE PATCH REMOVE (20:40)
--- NOTE | 2025-02-28 21:00 | PTCARENOTE ---
Assumed care of pt from roger LEIVA. AAJackeline SANTANA. Appropriate. A-flutter on the tele monitor. HR 70-80s. Temporary epicardial v-wire intact. Audible heart tones. BP 120-140s/60s. Palpable pulses throughout. Pt on RA. POX 94-96%. Lung sounds
diminished in the bases. Occasional dry cough. Deep breathing and IS encouraged. Mediastinal CTx2 and R/L pleural CT to -20 suction, no airleaks noted, and output as documented. Abdomen soft. +BSx4. Pacheco catheter intact and draining yellow urine.
Right IJ cordis and PIVx2 intact. All lines flushed. All surgical sites stable. Pt assisted from the chair to the bed w/ assist x1. See worklist for full nursing assessment and interventions. Call shaw within reach.
[2025-03-01] VITALS (19 sets, daily range): BP systolic 90–143; BP diastolic 46–83; PULSE 74; O2SAT 97–98; BMI 29.7
--- NOTE | 2025-03-01 00:11 | PTCARENOTE ---
No acute changes in assessment. Neuro unchanged. A-flutter on the tele monitor. HR 70-80s. Cuff BP 130-140s/60s. Pt placed on 2 L NC. POX 95-98%. CTx4 assessment unchanged, output as documented. Pacheco catheter intact and draining yellow urine. All
surgical sites stable at this time. Repositioned as needed. Call shaw within reach.
[2025-03-01 04:58] LABS: Hematocrit 31.5 % (39.0-52.0); Hemoglobin 10.2 g/dL (13.0-18.0); Mean Corp Hgb Conc. 32.4 g/dL (33.0-37.0); Mean Corpuscular Volume 102.6 fL (80.0-94.0); Platelet Count 175 10^3/uL (130-400); Red Cell Dist. Width 14.2 % (11.5-14.5)
[2025-03-01 04:59] LABS: INR 1.53; PT 18.7 Sec (11.4-14.6)
--- NOTE | 2025-03-01 05:11 | PTCARENOTE ---
Pt reassessed. Aflutter with PVCs with rates in the 70s. BP stable. POX 97% on RA. Surgical sites stable. Pacheco draining adequate amounts of clear yellow urine. CTx4 assessment unchanged, no significant output. Pt assisted to the chair for comfort.
Labs sent. Call shaw within reach.
[2025-03-01 05:16] LABS: Blood Urea Nitrogen 23 mg/dl (9-20); Calcium 8.1 mg/dl (8.4-10.2); Carbon Dioxide 25 mmol/L (22-30); Chloride 104 mmol/L (98-107); Estimated Creatinine Clearance 81 ml/min; Glucose 107 mg/dl (70-99); Magnesium 2.2 mg/dl (1.6-2.3); Potassium 4.6 mmol/L (3.5-5.1); Sodium 136 mmol/L (135-145); eGFR > 60.00
[2025-03-01] MEDS: TYLENOL 975 MG PO ×3 (05:34→21:55)
[2025-03-01] MEDS: VANCOCIN 200 IV (05:35)
[2025-03-01] MEDS: ROCEPHIN 2000 MG IV (05:35)
[2025-03-01] MEDS: STERILE WATER FOR INJECTION 20 ML IV (05:35)
[2025-03-01] MEDS: SYNTHROID 50 MCG PO (05:35)
--- NOTE | 2025-03-01 06:41 | W.PN.CT ---
Addendum entered and electronically signed by Hayley Downey MD 03/01/25 14:39:
Correction:
Patient off Dobutamine, tolerating well. In and out of afib, rate 70s. Pacheco out.
Original Note:
Today's Communication / Plan
-
-pod #4
-CT outputs: 2 meds 40/190, 2 pleur 110/390 in 12/24 hrs
-remains in a-fib 70s-80s overnight
-BB held d/t bradycardia and Dobut postop
-Coumadin started 02/28 for a-fib- got 2.5 mg. INR today 1.53
-maintain pw
-on Vanco and Ceftriaxone per ID pending AV pathology.
-appreciate everyone's input
-encourage IS, OOB
Assessment / Plan
-
Assessment:
-S/P Median sternotomy/AVR (#29 Inspiris Resilia)/ Annular debridement/[facility] MAZE procedure/Exclusion of KHALIDA w/ 35mm AtriClip/Excision of mobile calcium and BAV (sent for microbiologic analysis), by Dr. Allen, 02/25/25, pod#4
Assessment:
-Bicuspid AV w/ moderate to severe stenosis, moderate regurgitation, and mobile calcium vs. vegetation
-LVEF 20%, improved to 35% postop per intraop MERCEDES
-Dilated asc. aorta (4.2 cm)
-New onset A-fib with RVR
-Hx TIA/CVA
-Seizure disorder
-Hypothyroidism
-COPD
-Former tobacco use (quit 37 years ago)
-DVT/PE
-Transaminitis
-GERD
-S/P LE vein stripping
-Acute postop blood loss/Anemia (stable without transfusion)
-Acute postop hypothrombocytopenia
-Acute postop atelectasis
-Acute postop hypovolemia with subsequent hypervolemia
-Acute posto RBBB
Discussed patient care with: Nursing and Care Team
Subjective
Procedure
Median sternotomy/AVR (#29 Inspiris Resilia)/ Annular debridement/[facility] MAZE procedure/Exclusion of KHALIDA w/ 35mm AtriClip/Excision of mobile calcium and BAV (sent for microbiologic analysis), by Dr. Allen, 02/25/25
-
Date of Service: March 01, 2025
Objective Data
-
PT 18.2 Sec (11.4-14.6) H 02/28/25 04:09
INR 1.45 02/28/25 04:09
APTT 42.5 Sec (23.4-35.0) H 02/25/25 17:33
Vital Signs
Vital Signs
Temp Pulse Resp BP Pulse Ox
98.5 F 74 20 139/63 97
03/01/25 00:00 03/01/25 02:00 03/01/25 02:00 03/01/25 02:00 03/01/25 02:00
CT Intake/Output/Weight
02/28/25 02/28/25 03/01/25
06:59 18:59 06:59
Intake Total 341.2 / 1539.0 655.1 / 735.1 80 / 735.1
Output Total 1125 / 2895 1965 / 2545 580 / 2545
Balance -783.8 / -1356.0 -1309.9 / -1809.9 -500 / -1809.9
SaO2: 97
Physical Exam
-
General: Awake and AOx3
Cardiovascular: Irregular rate & rhythm (alternates between rapid a-flutter 110s and a-fib 70s hr), No Murmurs and No Rub
Respiratory: Decreased Breath Sounds
Sternum: Stable
Incision: Clean and Intact
Extremities: No Edema
Data Reviewed
-
Lab Results: Results Reviewed
Medications: Active Meds Reviewed
Chest X-Ray: Report Reviewed and Image Reviewed
ECG: Report Reviewed and Image Reviewed
--- NOTE | 2025-03-01 07:07 | W.PN.INTV ---
Today's Communication / Plan
Recommendations
Diuresis continues
Coumadin started
Hemoglobin stable/improved
Out of bed to chair, ambulate
Chest tube per CT surgery
Assessment
-
74-year-old male with new onset atrial fibrillation, heart failure, initially treated for pneumonia at [facility] found to have aortic mobile lesion, transferred to [facility]. Found to have possible bicuspid aortic valve with calcified
deposit, now status post AVR with biological valve replacement, maze procedure 02/25
S/p bio AVR, MAZE 02/25/25
New onset atrial fibrillation
Hospitalized at [facility], transferred to [facility] 02/22
EF 20%, preoperatively/intraoperatively
Improved to 35% postoperatively
Acute heart failure
Likely combination of aortic stenosis valve area 0.72 cm�, atrial fibrillation
Per MERCEDES 02/24/2025, EF 40%
Postoperative anemia
Conditions present prior to admission
Suspected COPD
History of seizure disorder
Distant tobacco history, quit 1989
Plan/recommendations
At this time, patient appears stable
Chest tube drainage noted, minimal
Chest x-ray with mild basilar atelectasis
Amiodarone held due to bradycardia
Coumadin started for atrial fibrillation
Diuresis continues, negative fluid balance noted
Moving forward
Continue with management per CT surgery
Negative fluid balance continues
Atrial flutter/fibrillation noted
Coumadin started
Cardioversion in OR unsuccessful
Cardiology following
Follow hemoglobin, improving
Transfuse 1 unit noted
Intraoperative EF improvement noted
pain control, incentive spirometry
Mild bibasilar atelectasis per chest x-ray
Airway clearance
Out of bed to chair as able
Await pathology
Remains on antibiotics. ID following
Reviewed with critical care nursing
Subjective Dataa
Subjective Data
Date of Service:
Date of Service: March 01, 2025
Subjective:
Patient sitting in chair, overall feeling well. Denies nausea, shortness of breath. Chest tubes remain in place
Objective Data
Data Reviewed
Vital Signs / I&O / Oxygen:
Vital Signs
Temp Pulse Resp BP Pulse Ox
97.8 F 82 22 138/63 98
03/01/25 04:00 03/01/25 06:00 03/01/25 06:00 03/01/25 04:00 03/01/25 06:00
Intake and Output
02/28/25 03/01/25 03/02/25
06:59 06:59 05:59
Intake Total 1493.0 / 1539.0 775.1 / 775.1
Output Total 2805 / 2895 2735 / 2735
Balance -1312.0 / -1356.0 -1959.9 / -1959.9
SaO2 [SIMV] 96
SaO2 98
Nasal Cannula flow liters per 2
minute
Physical Exam
General: Comfortable and Other (IJ, chest tube)
HEENT: Normocephalic and Anicteric
Cardiovascular: S1-S2, Regular Rhythm and Murmur (n)
Respiratory: Wheeze (n), Crackles (n), Rhonchi (n), Non-Labored Respirations and Other (Decreased at base)
GI: Soft, Non Distended and Non Tender
Neurology: Awake, Alert and No Motor Deficits
Skin: Jaundice (n), Rash (n) and Bruising
Labs/Micro/Reports
Lab Data
03/01/25 04:32
03/01/25 04:32
Laboratory Results
03/01/25
04:32
PT 18.7 H
INR 1.53
Microbiology
02/25/25 Unknown Heart Anaerobic Culture - Preliminary
NO ANAEROBES ISOLATED
02/25/25 Unknown Valve Anaerobic Culture - Preliminary
NO ANAEROBES ISOLATED
02/25/25 Unknown Valve Tissue Culture - Preliminary
No Growth After 72 Hours
02/25/25 Unknown Valve Gram Stain - Preliminary
02/25/25 Unknown Valve Tissue Culture - Preliminary
No Growth After 72 Hours
02/25/25 Unknown Valve Gram Stain - Preliminary
02/25/25 Unknown Valve Acid Fast Bacilli Smear - Preliminary
02/25/25 Unknown Valve Acid Fast Bacilli Culture - Preliminary
02/25/25 Unknown Valve Acid Fast Bacilli Smear - Preliminary
02/25/25 Unknown Valve Acid Fast Bacilli Culture - Preliminary
02/22/25 10:16 Blood/Venous Blood Culture - Final
No Growth - Final Report
02/22/25 09:37 Blood/Venous Blood Culture - Final
No Growth - Final Report
02/25/25 Unknown Valve Fungal Smear - Final
No yeast or fungal elements seen.
02/25/25 Unknown Valve Fungal Culture - Preliminary
Culture in progress.
Positive cultures are reported as soon as detected.
Final report to follow in four to five weeks.
02/25/25 Unknown Valve Fungal Smear - Final
No yeast or fungal elements seen.
02/25/25 Unknown Valve Fungal Culture - Preliminary
Culture in progress.
Positive cultures are reported as soon as detected.
Final report to follow in four to five weeks.
--- NOTE | 2025-03-01 07:48 | PTCARENOTE ---
Pt received from outgoing RN, Pt POD s/p AVR, oob in chair, aaox4, ra, NSR PAC/ Afib, CT x4, IS usage, Evans, PIV, Rt Ij Cordis, plan to ambulate, dc ct & evans.
--- NOTE | 2025-03-01 08:17 | PHA.VAN.FU ---
Vancomycin Assessment / Plan
- Assessment
Renal Function: Stable
In the past 24 hrs, patient has been: Afebrile
Concomitant Antimicrobials: CEFTRIAXONE
- Dosing Plan
Continue: 1000MG Q12H
- Monitoring Plan
Level(s) appropriate: Recheck trough at minimum of weekly intervals
- Follow Up
Pharmacy will continue to follow.
Vancomycin Follow UP
- -
Patient Age: 74
Patient Sex: Male
Vancomycin Day #: 8
Indication: Endocarditis
Requesting Provider: Dr Archer
Pertinent Antimicrobial Allergies:
penicillin G - Unknown told was allergic as a child
Height / Weight:
Height 5 ft 9 in
Actual Weight 91.1 kg
Pertinent Past Medical History: BMI ~29
- Vital Signs / Lab Results
Temp Pulse Resp BP Pulse Ox
97.8 F 73 16 124/54 96
03/01/25 04:00 03/01/25 07:34 03/01/25 07:00 03/01/25 07:34 03/01/25 07:43
Lab Results - Hematology
02/26/25 02/27/25 02/28/25
12:36 03:52 04:09
WBC 17.9 H 14.0 H 15.5 H
03/01/25
04:32
WBC 17.4 H
Lab Results - Chemistry
02/26/25 02/27/25 02/28/25
12:36 03:52 04:09
BUN 19 18 19
Creatinine 0.9 0.9 0.8
Estimated Creat Clear 72 72 81
Albumin 2.5 L
03/01/25
04:32
BUN 23 H
Creatinine 0.8
Estimated Creat Clear 81
Albumin
Microbiology Results
02/25/25 Unknown Anaerobic Culture - Preliminary
Heart NO ANAEROBES ISOLATED
02/25/25 Unknown Anaerobic Culture - Preliminary
Valve NO ANAEROBES ISOLATED
02/25/25 Unknown Tissue Culture - Preliminary
Valve No Growth After 72 Hours
Gram Stain - Preliminary
02/25/25 Unknown Tissue Culture - Preliminary
Valve No Growth After 72 Hours
Gram Stain - Preliminary
02/25/25 Unknown Acid Fast Bacilli Smear - Preliminary
Valve Acid Fast Bacilli Culture - Preliminary
02/25/25 Unknown Acid Fast Bacilli Smear - Preliminary
Valve Acid Fast Bacilli Culture - Preliminary
02/22/25 10:16 Blood Culture - Final
Blood/Venous No Growth - Final Report
02/22/25 09:37 Blood Culture - Final
Blood/Venous No Growth - Final Report
Therapeutic Drug Monitoring
Vancomycin Peak 25.5 ug/ml (18-26) 02/26/25 21:29
Vancomycin Trough 15.0 ug/ml (5-20) 02/27/25 03:52
[2025-03-01] MEDS: LUMINAL 64.8 MG PO ×2 (08:20→20:08)
[2025-03-01] MEDS: BACTROBAN 2% OINTMENT 1 APPLIC NASAL (08:20)
[2025-03-01] MEDS: SENOKOT 8.6 MG PO ×2 (08:20→20:09)
[2025-03-01] MEDS: NEURONTIN 100 MG PO ×3 (08:20→21:55)
[2025-03-01] MEDS: PROTONIX 40 MG PO (08:20)
[2025-03-01] MEDS: LIDOCAINE 4% PATCH 1 PATCH TOPICAL (08:20)
[2025-03-01] MEDS: PACERONE 200 MG PO ×3 (08:21→21:55)
[2025-03-01] MEDS: MAGNESIUM OXIDE 400 MG PO ×2 (08:21→20:09)
[2025-03-01] MEDS: LOW STRENGTH ASPIRIN 81 MG PO (08:21)
--- NOTE | 2025-03-01 09:25 | W.PN.ID1 ---
Date of Service
Date of Service: March 01, 2025
Today's Communication
Discontinue antibiotics and observe. Trend white count.
Assessment / Plan
Valvular vegetation
Bicuspid AV with dense calcification
Severe
- 02/25 s/p AVR, MAZE, KHALIDA exclusion
- 02/22 blood cultures : no growth to date
- 02/21 HR blood cultures are finalized negative
- valve cultures - no growth to date
- Pathology without evidence of infectious endocarditis
- D/C further antibiotics.
- trend post-op leukocytosis
����������������������������������������������������������
Chief Complaint
-: Other (possible endocarditis)
Subjective / Review of Systems
Review of Systems: No Fever and No Chills
Vital Signs / Physical Exam
Vital Signs
Vital Signs
Temp Pulse Resp BP Pulse Ox
97.8 F 73 16 124/54 96
03/01/25 04:00 03/01/25 07:34 03/01/25 07:00 03/01/25 07:34 03/01/25 07:43
Physical Exam
Constitutional: No Acute Distress and Comfortable
Eyes: No Conjunctival Hemorrhage and Sclera Anicteric
Cardiovascular: S1/S2; Negative S3/S4
Pulmonary: Rales (crackles at bases) and Other (Chest tubes in place)
Gastrointestinal: Soft, Non Tender and Non Distended
Wound: Other (Strenal dressing dry)
Neurological: AO x 3
Psychological: Calm
Objective Data
Lab Data
Lab Results
03/01/25 04:32
03/01/25 04:32
PT 18.7 Sec (11.4-14.6) H 03/01/25 04:32
INR 1.53 03/01/25 04:32
APTT 42.5 Sec (23.4-35.0) H 02/25/25 17:33
Estimated Creat Clear 81 ml/min 03/01/25 04:32
Lactic Acid 1.2 mmol/L (0.7-2.0) 02/26/25 02:54
Total Bilirubin 0.6 mg/dl (0.2-1.3) 02/26/25 12:36
AST 57 U/L (17-59) 02/26/25 12:36
ALT 24 U/L (0-50) 02/26/25 12:36
Alkaline Phosphatase 69 U/L (38-126) 02/26/25 12:36
Most recent labs reviewed.
Micro Results:
02/25/25 Unknown Anaerobic Culture - Preliminary
Heart NO ANAEROBES ISOLATED
02/25/25 Unknown Anaerobic Culture - Preliminary
Valve NO ANAEROBES ISOLATED
02/25/25 Unknown Tissue Culture - Preliminary
Valve No Growth After 72 Hours
Gram Stain - Preliminary
02/25/25 Unknown Tissue Culture - Preliminary
Valve No Growth After 72 Hours
Gram Stain - Preliminary
02/25/25 Unknown Acid Fast Bacilli Smear - Preliminary
Valve Acid Fast Bacilli Culture - Preliminary
02/25/25 Unknown Acid Fast Bacilli Smear - Preliminary
Valve Acid Fast Bacilli Culture - Preliminary
02/22/25 10:16 Blood Culture - Final
Blood/Venous No Growth - Final Report
02/22/25 09:37 Blood Culture - Final
Blood/Venous No Growth - Final Report
02/25/25 Unknown Fungal Smear - Final
Valve No yeast or fungal elements seen.
Fungal Culture - Preliminary
Culture in progress.
Positive cultures are reported as soon as detected.
Final report to follow in four to five weeks.
02/25/25 Unknown Fungal Smear - Final
Valve No yeast or fungal elements seen.
Fungal Culture - Preliminary
Culture in progress.
Positive cultures are reported as soon as detected.
Final report to follow in four to five weeks.
02/21/25 21:25 MRSA Screen - Final
Nose No Methicillin Resistant Staphylococcus aureus isolated.
Pathology:
02/25/2025 Aortic valve, aortic valve replacement: nodular fibrocalcific degeneration.
Care Review
Plan reviewed with: Physician (CT Surgery)
--- NOTE | 2025-03-01 10:58 | W.PN.CD ---
Today's Communication / Plan
-
Patient remains on Toprol and amiodarone.
Consider additional GDMT as patient recovers and as blood pressure tolerates.
Continue with amiodarone. If patient remains in in A-fib then may consider another attempt to try to get patient back in rhythm. Patient currently being dosed with Coumadin.
Impression / Plan
-
Bicuspid aortic valve with mod-severe aortic stenosis with echo density on [facility]ES possible mobile calcium S/P Median sternotomy/AVR (#29 Inspiris Resilia)/Annular debridement/[facility] MAZE procedure/Exclusion of KHLAIDA w/ 35mm AtriClip/Excision (by
Alejandro, 02/25/25)
-Looks well clinically today; feels well.
-dobutamine turned off today (02/28)
Acute systolic heart failure, EF 20%, severe
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
-CTA did not demonstrate extensive proximal LM/LAD/LCx dz, consider formal ischemic eval as outpatient
- Continue to assess GDMT as patient recovers. Patient currently on low-dose Toprol. BP limits addition of other meds at this time.
-continue IV lasix, with close monitoring of labs/tele
New atrial fibrillation:
- Attempted cardioversion in the OR yesterday, consider repeat attempt at CV once fully loaded with amio prior to discharge
- Recommend lifelong systemic anticoagulation to start when safe post op
COPD:
-former smoker
-Recent treatment with doxycycline for PNA
Physical Exam
Vital Signs/Labs
Vital Signs
Temp Pulse Resp BP Pulse Ox
97.8 F 82 16 99/54 96
03/01/25 04:00 03/01/25 09:00 03/01/25 09:00 03/01/25 09:00 03/01/25 08:00
10/31/25 11/01/25 11/02/25
06:59 06:59 05:59
Actual Weight 92.5 kg 91.1 kg
03/01/25 04:32
03/01/25 04:32
PT 18.7 Sec (11.4-14.6) H 03/01/25 04:32
INR 1.53 03/01/25 04:32
APTT 42.5 Sec (23.4-35.0) H 02/25/25 17:33
Magnesium 2.2 mg/dl (1.6-2.3) 03/01/25 04:32
Triglycerides 86 mg/dl (10-149) 02/21/25 20:44
LDL Cholesterol, Calc 52 mg/dl 02/21/25 20:44
VLDL Cholesterol, Calc 17 mg/dl (0-30) 02/21/25 20:44
HDL Cholesterol 46 mg/dl 02/21/25 20:44
TSH 3.07 uIU/ml (0.47-4.68) 02/23/25 03:24
Physical Exam
Constitutional: No acute distress
Cardiovascular: Rhythm & rate is regular
Respiratory: Wheeze Absent and Rhonchi Absent
GI: Soft and Non tender
Neuro/Psych: Alert and Oriented
Data Reviewed
-
Date of Service: March 01, 2025
Medical Decision Making: Reviewed Test Results
X-Ray/CT/US/MRI/NUC/PET: Report Reviewed by me
Labs: Labs Reviewed by me
--- NOTE | 2025-03-01 11:21 | PTCARENOTE ---
pt reassessment unchanged from previous, MS CT dced along with nathan, order to dced cordis as well. pt back in bed resting x1hr. DTV @ 1700.
[2025-03-01] MEDS: LASIX 40 MG IV (11:29)
[2025-03-01] MEDS: KLOR-CON 20 MEQ PO (11:29)
[2025-03-01] MEDS: NSS IV (12:04)
--- NOTE | 2025-03-01 15:39 | PTCARENOTE ---
pt reassessment unchanged from previous, vss, ra, NSR with PAC, ambulating, pain management
[2025-03-01] MEDS: COUMADIN 4 MG PO (16:17)
[2025-03-01] MEDS: REMOVE LIDOCAINE PATCH 1 PATCH REMOVE (20:09)
--- NOTE | 2025-03-01 21:15 | PTCARENOTE ---
Assumed care of patient at 1900, report from prior shift RN. Patient OOB, Vital signs stable, A Fib on monitor. Ambulated with RN in dean, BECERRA,on Room air, [id number]% recovered well on return.Pules +. BS present, voiding with urinal. CHG bath
completed, Complete assessment detail in workflow.
[2025-03-02] VITALS (12 sets, daily range): BP systolic 95–130; BP diastolic 52–104; BMI 29.6
--- NOTE | 2025-03-02 00:23 | W.PN.CT ---
Today's Communication / Plan
-
-pod #5
-CT outputs: 2 meds DCd, 2 pleur 140/225 in 12/24 hrs
-remains in afib, rate mostly controlled
-BB held d/t bradycardia and Dobut postop, still on hold
-Cardiology recs: Continue with amiodarone. If patient remains in in A-fib then may consider another attempt to try to get patient back in rhythm
-Advancing GDMT as able
-Coumadin started 02/28 for a-fib- got 4 mg. INR 1.53->1.63
-maintain pw
-continue Synthroid, phenobarbital, amio asa, PPI
-Pathology without evidence of infectious endocarditis, D/C Vanco/ceftriaxone per ID
-encourage IS, OOB
Assessment / Plan
-
Assessment:
-S/P Median sternotomy/AVR (#29 Inspiris Resilia)/ Annular debridement/[facility] MAZE procedure/Exclusion of KHALIDA w/ 35mm AtriClip/Excision of mobile calcium and BAV (sent for microbiologic analysis), by Dr. Allen, 02/25/25, pod#5
Assessment:
-Bicuspid AV w/ moderate to severe stenosis, moderate regurgitation, and mobile calcium vs. vegetation
-LVEF 20%, improved to 35% postop per intraop MERCEDES
-Dilated asc. aorta (4.2 cm)
-New onset A-fib with RVR
-Hx TIA/CVA
-Seizure disorder
-Hypothyroidism
-COPD
-Former tobacco use (quit 37 years ago)
-DVT/PE
-Transaminitis
-GERD
-S/P LE vein stripping
-Acute postop blood loss/Anemia (stable without transfusion)
-Acute postop hypothrombocytopenia
-Acute postop atelectasis
-Acute postop hypovolemia with subsequent hypervolemia
-Acute posto RBBB
Subjective
Procedure
Median sternotomy/AVR (#29 Inspiris Resilia)/ Annular debridement/[facility] MAZE procedure/Exclusion of KHALIDA w/ 35mm AtriClip/Excision of mobile calcium and BAV (sent for microbiologic analysis), by Dr. Allen, 02/25/25
-
Date of Service: March 02, 2025
Objective Data
-
PT 18.7 Sec (11.4-14.6) H 03/01/25 04:32
INR 1.53 03/01/25 04:32
APTT 42.5 Sec (23.4-35.0) H 02/25/25 17:33
Vital Signs
Vital Signs
Temp Pulse Resp BP Pulse Ox
97.8 F 82 18 99/83 96
03/01/25 20:00 03/01/25 21:55 03/01/25 16:29 03/01/25 21:55 03/01/25 22:01
CT Intake/Output/Weight
03/01/25 03/01/25 03/02/25
06:59 18:59 05:59
Intake Total 120 / 785.1 650 / 850 200 / 850
Output Total 770 / 2765 1465 / 1601 136 / 1601
Balance -650 / -1979.9 -815 / -751 64 / -751
SaO2: 96
Physical Exam
-
General: Awake and Oriented
Cardiovascular: Irregular rate & rhythm and No Murmurs
Respiratory: Clear and Equal
Sternum: Stable
Incision: Clean, Dry and Intact
Extremities: No Edema and No Erythema
Data Reviewed
-
Lab Results: Results Reviewed
Chest X-Ray: Report Reviewed
ECG: Report Reviewed
--- NOTE | 2025-03-02 01:02 | PTCARENOTE ---
Nurse assisted patient to side of bed to use urinal. Vital signs stable. Patient denies pain, O2 sat 935 on room air, BP 126/75 remains in Afib heart rate 78, minimal output from CT.
[2025-03-02 05:46] LABS: INR 1.63; PT 19.5 Sec (11.4-14.6)
[2025-03-02 05:50] LABS: Blood Urea Nitrogen 22 mg/dl (9-20); Calcium 8.0 mg/dl (8.4-10.2); Carbon Dioxide 27 mmol/L (22-30); Chloride 107 mmol/L (98-107); Estimated Creatinine Clearance 93 ml/min; Glucose 105 mg/dl (70-99); Magnesium 2.3 mg/dl (1.6-2.3); Potassium 4.6 mmol/L (3.5-5.1); Sodium 137 mmol/L (135-145); eGFR > 60.00
[2025-03-02] MEDS: SYNTHROID 50 MCG PO (05:53)
[2025-03-02] MEDS: TYLENOL 975 MG PO ×3 (05:53→21:21)
[2025-03-02 06:01] LABS: Hematocrit 31.8 % (39.0-52.0); Hemoglobin 10.3 g/dL (13.0-18.0); Mean Corp Hgb Conc. 32.4 g/dL (33.0-37.0); Mean Corpuscular Volume 101.6 fL (80.0-94.0); Platelet Count 242 10^3/uL (130-400); Red Cell Dist. Width 14.0 % (11.5-14.5)
--- NOTE | 2025-03-02 06:38 | W.PN.INTV ---
Today's Communication / Plan
Recommendations
Continue diuresis
Atrial fibrillation noted, remains on Coumadin
Now off antibiotics
On room air
Once transferred to telemetry, we will sign off. Please call with questions
Assessment
-
74-year-old male with new onset atrial fibrillation, heart failure, initially treated for pneumonia at [facility] found to have aortic mobile lesion, transferred to [facility]. Found to have possible bicuspid aortic valve with calcified
deposit, now status post AVR with biological valve replacement, maze procedure 02/25
S/p bio AVR, MAZE 02/25/25
New onset atrial fibrillation
Hospitalized at [facility], transferred to [facility] 02/22
EF 20%, preoperatively/intraoperatively
Improved to 35% postoperatively
Acute heart failure
Likely combination of aortic stenosis valve area 0.72 cm�, atrial fibrillation
Per [facility] 02/24/2025, EF 40%
Postoperative anemia
Conditions present prior to admission
Suspected COPD
History of seizure disorder
Distant tobacco history, quit 1989
Plan/recommendations
At this time, patient appears stable
Chest tube drainage noted, minimal
Chest x-ray with mild basilar atelectasis, from 03/01
Amiodarone held due to bradycardia
Coumadin started for atrial fibrillation
Diuresis continues, negative fluid balance noted
Moving forward
Continue with management per CT surgery
Negative fluid balance continues
Atrial flutter/fibrillation noted
Coumadin started
Cardioversion in OR unsuccessful
Cardiology following
Follow hemoglobin, improving
Transfuse 1 unit noted, stable
Intraoperative EF improvement noted
pain control, incentive spirometry
Mild bibasilar atelectasis per chest x-ray
Airway clearance
Out of bed to chair as able
Await pathology. Per correspondence, no evidence of endocarditis
Now off antibiotics. ID following
Once transferred to telemetry, we will sign off. Please call with questions
Subjective Dataa
Subjective Data
Date of Service:
Date of Service: March 02, 2025
Subjective:
Patient is sitting in chair, without complaints. Denies nausea, significant pain, shortness of breath. [address] remains in place. Hemoglobin stable at 10.3
Objective Data
Data Reviewed
Vital Signs / I&O / Oxygen:
Vital Signs
Temp Pulse Resp BP Pulse Ox
97.8 F 84 20 128/104 100
03/02/25 06:28 03/02/25 06:28 03/02/25 06:28 03/02/25 06:28 03/02/25 06:28
Intake and Output
02/28/25 03/01/25 03/02/25
06:59 06:59 05:59
Intake Total 1493.0 / 1539.0 775.1 / 785.1 1000 / 1000
Output Total 2805 / 2895 2735 / 2765 1856 / 1856
Balance -1312.0 / -1356.0 -1959.9 / -1979.9 -856 / -856
SaO2 [SIMV] 96
SaO2 100
Nasal Cannula flow liters per 2
minute
Physical Exam
General: Comfortable and Other (Right IJ dressing. Chest tube in place)
HEENT: Normocephalic and Anicteric
Cardiovascular: S1-S2, Regular Rhythm and Murmur (n)
Respiratory: Wheeze (n), Crackles (n), Rhonchi (n), Non-Labored Respirations and Other (Decreased at base)
GI: Soft, Non Distended and Non Tender
Neurology: Awake, Alert and No Motor Deficits
Skin: Jaundice (n), Rash (n) and Bruising
Labs/Micro/Reports
Lab Data
03/02/25 05:19
03/02/25 05:19
Laboratory Results
03/02/25
05:19
PT 19.5 H
INR 1.63
Microbiology
02/25/25 Unknown Heart Anaerobic Culture - Preliminary
NO ANAEROBES ISOLATED
02/25/25 Unknown Valve Anaerobic Culture - Preliminary
NO ANAEROBES ISOLATED
02/25/25 Unknown Valve Tissue Culture - Preliminary
No Growth After 72 Hours
02/25/25 Unknown Valve Gram Stain - Preliminary
02/25/25 Unknown Valve Tissue Culture - Preliminary
No Growth After 72 Hours
02/25/25 Unknown Valve Gram Stain - Preliminary
02/25/25 Unknown Valve Acid Fast Bacilli Smear - Preliminary
02/25/25 Unknown Valve Acid Fast Bacilli Culture - Preliminary
02/25/25 Unknown Valve Acid Fast Bacilli Smear - Preliminary
02/25/25 Unknown Valve Acid Fast Bacilli Culture - Preliminary
02/22/25 10:16 Blood/Venous Blood Culture - Final
No Growth - Final Report
02/22/25 09:37 Blood/Venous Blood Culture - Final
No Growth - Final Report
[2025-03-02] MEDS: PROTONIX 40 MG PO (08:11)
[2025-03-02] MEDS: LUMINAL 64.8 MG PO ×2 (08:11→20:04)
[2025-03-02] MEDS: MAGNESIUM OXIDE 400 MG PO ×2 (08:11→20:04)
[2025-03-02] MEDS: LOW STRENGTH ASPIRIN 81 MG PO (08:11)
[2025-03-02] MEDS: PACERONE 200 MG PO ×3 (08:11→21:21)
[2025-03-02] MEDS: SENOKOT 8.6 MG PO (08:11)
[2025-03-02] MEDS: NEURONTIN 100 MG PO ×3 (08:11→21:21)
[2025-03-02] MEDS: LIDOCAINE 4% PATCH TOPICAL (08:12)
--- NOTE | 2025-03-02 08:34 | PTCARENOTE ---
Received patient for 7a-7p shift. Patient AAO3, oob in chair, without complaints. VSS, Afib on lunchroom monitor. Medications administered as ordered. Patient ambulatory in room with min assist. +BM, tolerating po intake. Voiding in urinal without
issues. Patient denies pain at this time. CTx2 to low wall suction, serosanguineous drainage. V wire insulated. Patient instructed to call for assistance prior to ambulation. Patient verbalized understanding, call shaw in reach.
[2025-03-02] MEDS: KCL 20 MEQ PO (12:05)
[2025-03-02] MEDS: LASIX 40 MG IV (12:05)
--- NOTE | 2025-03-02 12:29 | PTCARENOTE ---
Patient reassessed, eusebio RATLIFF in chair, at bedside. Pleural chest tubes d/c'd, V wire insulated. Pt transported to radiology for 2 view CXR without issues. IV lasix and potassium administered as ordered. Patient ambulatory in room with 1 person
assist.
[2025-03-02] MEDS: NSS IV (16:21)
--- NOTE | 2025-03-02 16:24 | PTCARENOTE ---
Patient reassessed, VSS, Afib on hall monitor. Patient denies pain at this time. Ambulatory in room and dean with min assist. Medications administered as ordered. Patient ambulated in dean with 1 person assist.
[2025-03-02] MEDS: COUMADIN 5 MG PO (17:24)
[2025-03-02] MEDS: SENOKOT PO (20:04)
[2025-03-02] MEDS: REMOVE LIDOCAINE PATCH REMOVE (20:04)
--- NOTE | 2025-03-02 20:27 | PTCARENOTE ---
Patient received from RN @ 1900. Patient sitting in chair comfortably w/ cll shaw in reach. Patient denies all pain. Patient AOx3 and hard of hearing. A. Fib on monitor. BP 95/61 HR 96. Heart sounds irregular. V-wires insulated. Radial and
pedal pulses present. No edema noted. POX 97% RA. IS encouraged. Occasional dry non productive cough noted. Bowel sounds normoactive. Voids and ambulates w/ stand by assist. 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 CT dressing dry and intact.
2 PIV patent and intact.
[2025-03-03] VITALS (10 sets, daily range): BP systolic 99–138; BP diastolic 62–80; PULSE 89; O2SAT 94–97; BMI 29.1
--- NOTE | 2025-03-03 01:35 | PTCARENOTE ---
Patient assessment unchanged. Patient ambulating and voids in bathroom. VSS.
[2025-03-03 04:06] LABS: Hematocrit 33.2 % (39.0-52.0); Hemoglobin 10.6 g/dL (13.0-18.0); Mean Corp Hgb Conc. 31.9 g/dL (33.0-37.0); Mean Corpuscular Volume 101.2 fL (80.0-94.0); Platelet Count 305 10^3/uL (130-400); Red Cell Dist. Width 13.6 % (11.5-14.5)
[2025-03-03 04:07] LABS: INR 2.29; PT 25.3 Sec (11.4-14.6)
[2025-03-03 04:14] LABS: Blood Urea Nitrogen 21 mg/dl (9-20); Calcium 8.0 mg/dl (8.4-10.2); Carbon Dioxide 26 mmol/L (22-30); Chloride 108 mmol/L (98-107); Estimated Creatinine Clearance 93 ml/min; Glucose 103 mg/dl (70-99); Magnesium 2.3 mg/dl (1.6-2.3); Potassium 4.6 mmol/L (3.5-5.1); Sodium 138 mmol/L (135-145); eGFR > 60.00
--- NOTE | 2025-03-03 05:18 | W.PN.CT ---
Today's Communication / Plan
-
-pod #6
-CTs DCd
-remains in afib, rate mostly controlled
-BB held d/t bradycardia and Dobut postop, still on hold
-Cardiology recs: Continue with amiodarone. If patient remains in in A-fib then may consider another attempt to try to get patient back in rhythm
-Advancing GDMT as able
-Coumadin started 02/28 for a-fib- got 4 mg. INR 1.63->2.29 today
-maintain pw
-continue Synthroid, phenobarbital, amio asa, PPI
-Pathology without evidence of infectious endocarditis, stopped Vanco/ceftriaxone per ID
-encourage IS, OOB
Assessment / Plan
-
Assessment:
-S/P Median sternotomy/AVR (#29 Inspiris Resilia)/ Annular debridement/[facility] MAZE procedure/Exclusion of KHALIDA w/ 35mm AtriClip/Excision of mobile calcium and BAV (sent for microbiologic analysis), by Dr. Allen, 02/25/25, pod#6
Assessment:
-Bicuspid AV w/ moderate to severe stenosis, moderate regurgitation, and mobile calcium vs. vegetation
-LVEF 20%, improved to 35% postop per intraop MERCEDES
-Dilated asc. aorta (4.2 cm)
-New onset A-fib with RVR
-Hx TIA/CVA
-Seizure disorder
-Hypothyroidism
-COPD
-Former tobacco use (quit 37 years ago)
-DVT/PE
-Transaminitis
-GERD
-S/P LE vein stripping
-Acute postop blood loss/Anemia (stable without transfusion)
-Acute postop hypothrombocytopenia
-Acute postop atelectasis
-Acute postop hypovolemia with subsequent hypervolemia
-Acute posto RBBB
Subjective
Procedure
Median sternotomy/AVR (#29 Inspiris Resilia)/ Annular debridement/[facility] MAZE procedure/Exclusion of KHALIDA w/ 35mm AtriClip/Excision of mobile calcium and BAV (sent for microbiologic analysis), by Dr. Allen, 02/25/25
-
Date of Service: March 03, 2025
Objective Data
-
Lab Results
03/03/25 03:48
03/03/25 03:48
PT 25.3 Sec (11.4-14.6) H 03/03/25 03:48
INR 2.29 03/03/25 03:48
APTT 42.5 Sec (23.4-35.0) H 02/25/25 17:33
Vital Signs
Vital Signs
Temp Pulse Resp BP Pulse Ox
98.1 F 108 17 102/66 94
03/03/25 03:54 03/03/25 03:00 03/03/25 03:54 03/03/25 00:00 03/03/25 03:54
CT Intake/Output/Weight
03/02/25 03/02/25 03/03/25
05:59 18:59 06:59
Intake Total 350 / 1000 360 / 360
Output Total 391 / 1856 750 / 1050 300 / 1050
Balance -41 / -856 -390 / -690 -300 / -690
SaO2: 94
Physical Exam
-
General: Awake and Oriented
Cardiovascular: Irregular rate & rhythm and No Murmurs
Respiratory: Clear and Equal
Sternum: Stable
Incision: Clean, Dry and Intact
Extremities: No Edema and No Erythema
Data Reviewed
-
Lab Results: Results Reviewed
Medications: Active Meds Reviewed
Chest X-Ray: Report Reviewed
ECG: Report Reviewed
[2025-03-03] MEDS: TYLENOL 975 MG PO ×3 (06:41→22:24)
[2025-03-03] MEDS: SYNTHROID 50 MCG PO (06:41)
--- NOTE | 2025-03-03 07:36 | W.PN.INTV ---
Today's Communication / Plan
Recommendations
Out of bed
Chest tubes DC'd,
Hemoglobin stable
Atrial fibrillation rate controlled
Pathology without evidence for infectious endocarditis-antibiotics stopped
Transferred to telemetry-supervisor coil springs will sign off-call pulmonary if respiratory issues arise
Assessment
-
74-year-old male with new onset atrial fibrillation, heart failure, initially treated for pneumonia at [facility] found to have aortic mobile lesion, transferred to [facility]. Found to have possible bicuspid aortic valve with calcified
deposit, now status post AVR with biological valve replacement, maze procedure 02/25
S/p bio AVR, MAZE 02/25/25
New onset atrial fibrillation
Hospitalized at [facility], transferred to [facility] 02/22
EF 20%, preoperatively/intraoperatively
Improved to 35% postoperatively
Acute heart failure
Likely combination of aortic stenosis valve area 0.72 cm�, atrial fibrillation
Per MERCEDES 02/24/2025, EF 40%
Postoperative anemia
Conditions present prior to admission
Suspected COPD
History of seizure disorder
Distant tobacco history, quit 1989
Plan/recommendations
Tolerated extubation-respiratory status stable
Wean FiO2
Encourage incentive spirometry
Increase activity
Aspiration precautions
Pulmonary artery catheter and arterial line will be removed
Pressors have been weaned
Follow hemoglobin
Continue to follow platelet count and coags
Transfuse blood product as needed
Follow blood sugar
Insulin supplementation continues as needed
Pathology without evidence for infectious endocarditis-antibiotics stopped
ID following
Early nutrition
Early mobilization
DVT prophylaxis
Patient will be transferred to telemetry phase-call pulmonary if respiratory issues arise
Subjective Dataa
Subjective Data
Date of Service:
Date of Service: March 03, 2025
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
Subjective:
Feels better, out of bed, no chest pain, pain controlled, no shortness of breath
Review of Systems
General: Other (Per HPI)
Objective Data
Data Reviewed
Vital Signs / I&O / Oxygen:
Vital Signs
Temp Pulse Resp BP Pulse Ox
98.1 F 108 17 102/66 94
03/03/25 03:54 03/03/25 03:00 03/03/25 03:54 03/03/25 00:00 03/03/25 05:19
Intake and Output
03/02/25 03/03/25 03/04/25
05:59 06:59 06:59
Intake Total 1000 / 1000 360 / 360
Output Total 1856 / 1856 1050 / 1050
Balance -856 / -856 -690 / -690
SaO2 [SIMV] 96
SaO2 94
Nasal Cannula flow liters per 2
minute
Physical Exam
General: Respiratory Distress (n), Comfortable and Other (Right IJ dressing. Chest tube in place)
HEENT: Normocephalic and Anicteric
Cardiovascular: Regular Rhythm and Murmur (n)
Respiratory: Wheeze (n), Crackles (n), Rhonchi (n), Non-Labored Respirations and Other (Decreased at base)
GI: Soft, Non Distended and Non Tender
Neurology: Awake, Alert and No Motor Deficits
Skin: Warm, Good Color, Cyanosis (n), Jaundice (n), Rash (n) and Bruising
Labs/Micro/Reports
Lab Data
03/03/25 03:48
03/03/25 03:48
Laboratory Results
03/03/25
03:48
PT 25.3 H
INR 2.29
Microbiology
02/25/25 Unknown Heart Anaerobic Culture - Final
NO ANAEROBES ISOLATED
02/25/25 Unknown Valve Tissue Culture - Final
No Growth After 72 Hours
02/25/25 Unknown Valve Gram Stain - Final
02/25/25 Unknown Valve Anaerobic Culture - Final
NO ANAEROBES ISOLATED
02/25/25 Unknown Valve Tissue Culture - Final
No Growth After 72 Hours
02/25/25 Unknown Valve Gram Stain - Final
[2025-03-03] MEDS: PROTONIX 40 MG PO (08:00)
[2025-03-03] MEDS: LUMINAL 64.8 MG PO ×2 (08:00→19:41)
[2025-03-03] MEDS: LIDOCAINE 4% PATCH TOPICAL (08:00)
[2025-03-03] MEDS: LOW STRENGTH ASPIRIN 81 MG PO (08:00)
[2025-03-03] MEDS: PACERONE 200 MG PO ×3 (08:00→22:24)
[2025-03-03] MEDS: MAGNESIUM OXIDE 400 MG PO ×2 (08:01→19:42)
[2025-03-03] MEDS: NEURONTIN 100 MG PO ×3 (08:01→22:24)
[2025-03-03] MEDS: SENOKOT PO ×2 (08:01→19:43)
[2025-03-03] MEDS: LASIX 20 MG PO (08:19)
[2025-03-03] MEDS: LOPRESSOR 12.5 MG PO (08:19)
--- NOTE | 2025-03-03 09:12 | PTCARENOTE ---
Patient received from manager shift RN; AAOx3, responds spontaneously to RN and follows commands; [place]; Anxious to be discharged home; VSS; Afib on monitor; Epicardial V-wire insulated; Trace B/L LE edema; +2 DP and +2 radial pulses; Lungs diminished
at bases; Dry, non-productive cough; SpO2 94-98% on RA; Normoactive BS; Patient urinating in bathroom; Surgical incisions intact; PIVx2; See nursing documentation for further information
--- NOTE | 2025-03-03 10:12 | W.PN.CD ---
Today's Communication / Plan
-
On amio
slowly restarting GDMT
still in a fib/flutter
Impression / Plan
-
Bicuspid aortic valve with mod-severe aortic stenosis with echo density on MERCEDES possible mobile calcium S/P Median sternotomy/AVR (#29 Inspiris Resilia)/Annular debridement/[facility] MAZE procedure/Exclusion of KHALIDA w/ 35mm AtriClip/Excision (by
Alejandro, 02/25/25)
-Looks well clinically today; feels well.
-off pressors for 2 days
- stable
Acute systolic heart failure, EF 20%, severe
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
-CTA did not demonstrate extensive proximal LM/LAD/LCx dz, consider formal ischemic eval as outpatient
- Assess GDMT now on metoprolol
- lasix, with close monitoring of labs/tele
New atrial fibrillation:
- Attempted cardioversion in the OR yesterday, consider repeat attempt at CV once fully loaded with amio prior to discharge
- Recommend lifelong systemic anticoagulation to start when safe post op
COPD:
-former smoker
-Recent treatment with doxycycline for PNA
Subjective: feeling OK
Physical Exam
Vital Signs/Labs
Vital Signs
Temp Pulse Resp BP Pulse Ox
98.0 F 113 18 112/76 95
03/03/25 08:05 03/03/25 09:00 03/03/25 08:05 03/03/25 08:05 03/03/25 08:05
03/02/25 03/03/25 03/04/25
05:59 06:59 06:59
Actual Weight 200 lb 6.403 oz 197 lb 1.492 oz
03/03/25 03:48
03/03/25 03:48
PT 25.3 Sec (11.4-14.6) H 03/03/25 03:48
INR 2.29 03/03/25 03:48
APTT 42.5 Sec (23.4-35.0) H 02/25/25 17:33
Magnesium 2.3 mg/dl (1.6-2.3) 03/03/25 03:48
Triglycerides 86 mg/dl (10-149) 02/21/25 20:44
LDL Cholesterol, Calc 52 mg/dl 02/21/25 20:44
VLDL Cholesterol, Calc 17 mg/dl (0-30) 02/21/25 20:44
HDL Cholesterol 46 mg/dl 02/21/25 20:44
TSH 3.07 uIU/ml (0.47-4.68) 02/23/25 03:24
Physical Exam
Constitutional: No acute distress and Comfortable
EENT: Anicteric
Cardiovascular: Rhythm/rate is irregular
Respiratory: Respiratory effort normal and Lungs clear to auscul.
GI: Soft
Neuro/Psych: Alert and Oriented
Data Reviewed
-
Date of Service: March 03, 2025
EKG: Tracing Personally Visualized and interpreted (af)
Echo: Report Reviewed by me
Labs: Labs Reviewed by me
--- NOTE | 2025-03-03 10:30 | W.PN.ID1 ---
Date of Service
Date of Service: March 03, 2025
Today's Communication
ID service will no longer actively follow this patient please recall for further questions
Assessment / Plan
Valvular vegetation
Bicuspid AV with dense calcification
Severe
- 02/25 s/p AVR, MAZE, KHALIDA exclusion
- 02/22 blood cultures : finalized negative
- 02/21 HR blood cultures are finalized negative
- valve cultures - no growth to date
- Pathology without evidence of infectious endocarditis
- remains clinically well off of antibiotics
ID service will no longer actively follow this patient please recall for further questions
����������������������������������������������������������
Chief Complaint
-: Other (possible endocarditis)
Subjective / Review of Systems
remains afebrile
bp stable
no new complaints
Vital Signs / Physical Exam
Vital Signs
Vital Signs
Temp Pulse Resp BP Pulse Ox
98.0 F 103 18 126/80 94
03/03/25 08:05 03/03/25 10:20 03/03/25 08:05 03/03/25 10:03 03/03/25 09:55
Physical Exam
Constitutional: No Acute Distress
Cardiovascular: Regular Rate and S1/S2; Negative Murmur or Rub
Pulmonary: Clear and Symmetric; Negative Wheezes or Rales
Gastrointestinal: Soft, Non Tender, Non Distended and Normal Bowel Sounds
Skin: Warm and Dry; Negative Rash or Jaundice
Objective Data
Lab Data
Lab Results
03/03/25 03:48
03/03/25 03:48
PT 25.3 Sec (11.4-14.6) H 03/03/25 03:48
INR 2.29 03/03/25 03:48
APTT 42.5 Sec (23.4-35.0) H 02/25/25 17:33
Estimated Creat Clear 93 ml/min 03/03/25 03:48
Lactic Acid 1.2 mmol/L (0.7-2.0) 02/26/25 02:54
Total Bilirubin 0.6 mg/dl (0.2-1.3) 02/26/25 12:36
AST 57 U/L (17-59) 02/26/25 12:36
ALT 24 U/L (0-50) 02/26/25 12:36
Alkaline Phosphatase 69 U/L (38-126) 02/26/25 12:36
Most recent labs reviewed.
Micro Results:
02/25/25 Unknown Anaerobic Culture - Final
Heart NO ANAEROBES ISOLATED
02/25/25 Unknown Tissue Culture - Final
Valve No Growth After 72 Hours
Gram Stain - Final
02/25/25 Unknown Anaerobic Culture - Final
Valve NO ANAEROBES ISOLATED
02/25/25 Unknown Tissue Culture - Final
Valve No Growth After 72 Hours
Gram Stain - Final
02/25/25 Unknown Acid Fast Bacilli Smear - Preliminary
Valve Acid Fast Bacilli Culture - Preliminary
02/25/25 Unknown Acid Fast Bacilli Smear - Preliminary
Valve Acid Fast Bacilli Culture - Preliminary
02/22/25 10:16 Blood Culture - Final
Blood/Venous No Growth - Final Report
02/22/25 09:37 Blood Culture - Final
Blood/Venous No Growth - Final Report
02/25/25 Unknown Fungal Smear - Final
Valve No yeast or fungal elements seen.
Fungal Culture - Preliminary
Culture in progress.
Positive cultures are reported as soon as detected.
Final report to follow in four to five weeks.
02/25/25 Unknown Fungal Smear - Final
Valve No yeast or fungal elements seen.
Fungal Culture - Preliminary
Culture in progress.
Positive cultures are reported as soon as detected.
Final report to follow in four to five weeks.
02/21/25 21:25 MRSA Screen - Final
Nose No Methicillin Resistant Staphylococcus aureus isolated.
Pathology:
02/25/2025 Aortic valve, aortic valve replacement: nodular fibrocalcific degeneration.
[2025-03-03] MEDS: FARXIGA 10 MG PO (11:17)
--- NOTE | 2025-03-03 12:00 | PTCARENOTE ---
PO Lasix 20 ordered and given; PO Lopressor restarted; Steps completed with cardiac rehab and RN; Patient ambulating independently in room
--- NOTE | 2025-03-03 14:47 | CARDSERVLU ---
Echocardiogram with Lumason completed after protocol screening completed. Allergies verified.
Patent IV site: __L AC___
IV site flushed with 0.9% NaCl pre and post administration.
Diluted bolus method utilized to enhance visualization of ventricular vides.
Total volume given: __2.5__ mL
Patient tolerated all procedures well without complications.
[2025-03-03] MEDS: NSS IV (15:47)
--- NOTE | 2025-03-03 16:17 | PTCARENOTE ---
Echo completed at bedside; Patient ambulating with RN in hallways; Patient resting comfortably in chair at this time
--- NOTE | 2025-03-03 16:34 | CM ---
priced med with [employer]oup[employer] caresutter
entresto- $135/mo
farxiga- $114/mo
Jardiance $ 120/mo
[2025-03-03] MEDS: COUMADIN 2.5 MG PO (17:00)
[2025-03-03] MEDS: TOPROL XL 12.5 MG PO (19:42)
[2025-03-03] MEDS: REMOVE LIDOCAINE PATCH REMOVE (19:43)
--- NOTE | 2025-03-03 20:00 | PTCARENOTE ---
Resumed care of pt sitting in chair AAOx3. Pt CAPITAN GRANDE BAND. HR in the low 100's in Afib on the monitor. POX 87% on RA. Lungs dec @ bases. + bowel, round abd. Pt refused bowel regimen, pt reports moving bowels multiple times. Pt ambulatory to bathroom
independently when needed. B/L AC int in place, capped. Sternal aquacell dressing C/D/I. Epidural temp pacemaker present with V wire in place, insulated. trace LE edema. Palpable peripheral pulses present. CT Site dressing intact. Vital signs
stable. NO issues to report at this time. Denies any complaints of pain at this time. Call shaw in reach. Will continue to monitor.
--- NOTE | 2025-03-03 22:00 | PTCARENOTE ---
Pt assisted back to bed without issues. Knee high seq in place. Call shaw in reach. No changes in assessment noted at this time. Will continue to monitor.
[2025-03-04 04:33] VITALS: BP 106/87
[2025-03-04 04:34] VITALS: BP 106/87
[2025-03-04 05:32] LABS: INR 2.41; PT 26.3 Sec (11.4-14.6)
[2025-03-04 05:36] LABS: Blood Urea Nitrogen 17 mg/dl (9-20); Calcium 8.2 mg/dl (8.4-10.2); Carbon Dioxide 26 mmol/L (22-30); Chloride 105 mmol/L (98-107); Estimated Creatinine Clearance 93 ml/min; Glucose 90 mg/dl (70-99); Potassium 4.7 mmol/L (3.5-5.1); Sodium 135 mmol/L (135-145); eGFR > 60.00
[2025-03-04] MEDS: SYNTHROID 50 MCG PO (05:58)
[2025-03-04] MEDS: TYLENOL 975 MG PO (05:59)
[2025-03-04 06:00] VITALS: BMI 28.8
--- NOTE | 2025-03-04 06:11 | PTCARENOTE ---
Pt slept well overnight. Pt OOB to chair early this am. Vital signs stable. Pt denies any complaints. Pt anxious to go home. Call shaw in reach. Will continue to monitor.
[2025-03-04 07:38] VITALS: BP 96/74
[2025-03-04] MEDS: MAGNESIUM OXIDE 400 MG PO (07:43)
[2025-03-04] MEDS: TOPROL XL 12.5 MG PO (07:43)
[2025-03-04] MEDS: LUMINAL 64.8 MG PO (07:43)
[2025-03-04] MEDS: PACERONE 200 MG PO (07:43)
[2025-03-04] MEDS: FARXIGA 10 MG PO (07:44)
[2025-03-04] MEDS: PROTONIX 40 MG PO (07:44)
[2025-03-04] MEDS: LASIX 20 MG PO (07:44)
[2025-03-04] MEDS: LOW STRENGTH ASPIRIN 81 MG PO (07:44)
[2025-03-04] MEDS: NEURONTIN 100 MG PO (07:44)
[2025-03-04] MEDS: LIDOCAINE 4% PATCH TOPICAL (07:46)
[2025-03-04] MEDS: SENOKOT PO (07:46)
--- NOTE | 2025-03-04 07:59 | W.PN.CT ---
Today's Communication / Plan
-
-pod #7
-ambulates withou problems
-no complaints
-INR today 2.41. Continue Coumadin
-02/22 blood cultures : finalized negative
-10/24 HR blood cultures are finalized negative
-valve cultures - no growth to date
-remains clinically well off of antibiotics. ID signed off
-d/c today
Assessment / Plan
-
Assessment:
-S/P Median sternotomy/AVR (#29 Inspiris Resilia)/ Annular debridement/[facility] MAZE procedure/Exclusion of KHALIDA w/ 35mm AtriClip/Excision of mobile calcium and BAV (sent for microbiologic analysis), by Dr. Allen, 02/25/25, pod#7
Assessment:
-Bicuspid AV w/ moderate to severe stenosis, moderate regurgitation, and mobile calcium vs. vegetation
-LVEF 20%, improved to 35% postop per intraop MERCEDES
-Dilated asc. aorta (4.2 cm)
-New onset A-fib with RVR
-Hx TIA/CVA
-Seizure disorder
-Hypothyroidism
-COPD
-Former tobacco use (quit 37 years ago)
-DVT/PE
-Transaminitis
-GERD
-S/P LE vein stripping
-Acute postop blood loss/Anemia (stable without transfusion)
-Acute postop hypothrombocytopenia
-Acute postop atelectasis
-Acute postop hypovolemia with subsequent hypervolemia
-Acute posto RBBB
Discussed patient care with: Nursing and Care Team
Subjective
Procedure
Median sternotomy/AVR (#29 Inspiris Resilia)/ Annular debridement/[facility] MAZE procedure/Exclusion of KHALIDA w/ 35mm AtriClip/Excision of mobile calcium and BAV (sent for microbiologic analysis), by Dr. Allen, 02/25/25
-
Date of Service: March 04, 2025
Objective Data
-
Lab Results
03/03/25 03:48
03/04/25 04:48
PT 26.3 Sec (11.4-14.6) H 03/04/25 04:48
INR 2.41 03/04/25 04:48
APTT 42.5 Sec (23.4-35.0) H 02/25/25 17:33
Vital Signs
Vital Signs
Temp Pulse Resp BP Pulse Ox
97.9 F 110 18 96/74 98
03/04/25 07:42 03/04/25 07:40 03/04/25 07:42 03/04/25 07:38 03/04/25 07:42
CT Intake/Output/Weight
03/03/25 03/04/25 03/04/25
18:59 06:59 18:59
Intake Total 240 / 240
Balance 240 / 240
SaO2: 98
Physical Exam
-
General: Awake and AOx3
Cardiovascular: Irregular rate & rhythm, No Murmurs and No Rub
Respiratory: Rales (at bases) and Decreased Breath Sounds
Sternum: Stable
Incision: Clean, Dry and Intact
Extremities: Other (trace edema b/l)
Data Reviewed
-
Lab Results: Results Reviewed
Medications: Active Meds Reviewed
Chest X-Ray: Report Reviewed and Image Reviewed
ECG: Report Reviewed and Image Reviewed
--- NOTE | 2025-03-04 08:46 | W.DCSUMMARY ---
Discharge Summary
Discharge Data
Date of Admission: 02/21/25
Date of Discharge: 03/04/25
Total time spent discharging patient (in min): 45
-
Pending Results: No
Hospital Course
Primary care physician:
Dr. Jannet Botello
Outpatient builder's labourer:
Dr. Mcclellan
Inpatient consultants:
CBC, deputy k 9, infectious disease, and anesthesia
Procedures:
1. Median sternotomy/AVR (#29 Inspiris Resilia)/ Annular debridement/[facility] MAZE procedure/Exclusion of KHALIDA w/ 35mm AtriClip/Excision of mobile calcium and BAV (sent for microbiologic analysis), by Dr. Allen, 02/25/25,
Primary Diagnosis:
1. 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
Secondary Diagnoses:
-New onset A-fib with RVR
-Hx TIA/CVA
-Seizure disorder
-Hypothyroidism
-COPD
-Transaminitis
-GERD
-Acute on Chronic heart failure
-Acute postop blood loss/Anemia (stable without transfusion)
-Acute postop hypothrombocytopenia
-Acute postop atelectasis
-Acute postop hypovolemia with subsequent hypervolemia
-Acute postop RBBB
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 Found to have possible bicuspid aortic valve with
calcified deposit, now status post AVR with biological valve replacement, maze procedure 02/25
Hospital course:
Patient was initially admitted to [facility] on 02/21 with new onset atrial fibrillation. He was started on Cardizem and IV heparin. 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 Due to this patient was transferred to [place]
[facility] for CT surgery evaluation. On 02/22, patient's blood cultures were resent and he was started on empiric vancomycin and ceftriaxone. Due to his aortic valve vegetation patient did not undergo a left heart cath and was
taken to the CV OR on 02/25. Postoperatively, patient returned to the CVICU on dobutamine at 3, Levophed at 4, Precedex, and insulin infusions. In the OR patient was noted to have 2 Amio boluses and a attempted cardioversion due to the rapid A-fib
however, he returned to the CVICU in rapid A-fib. Patient was given 1 L of lactated ringer's. Precedex was weaned off and he was extubated later that evening. On 02/26 postoperative day 1, patient was noted to have a low cardiac index of 1.5
followed by a low mixed venous therefore dobutamine was increased to 5 mcg/kg/min. Patient was also noted to have an INR of 1.6 and was given FFP. With the up titration of dobutamine patient's index improved to 2.99, urine output increased, and IV
fluids were started at 75 mL/h x 500 mL. On 02/27 postoperative day 2, patient was noted to be mildly anemic he was given 1 unit of packed red blood cells followed by 20 mg of IV Lasix. Dobutamine was weaned to 2 throughout the day and cardiac
indexes were closely monitored. On 02/28 postoperative day 3, the atrial fibrillation persisted despite dobutamine being weaned off. He was diuresed with 40 mg of IV Lasix, swan and arterial line was removed and he was started on 2.5 mg of
Coumadin. On 03/01 postoperative day 4, antibiotics were discontinued by infectious disease due to valve pathology being negative. Coumadin was redosed, mediastinal chest tubes were removed however pleural chest tube remained in place due to
increased drainage. He was again diuresed. On 03/02 postoperative day 5, pleural chest tube was removed. Patient was diuresed. INR was noted to be 1.6 and he was dosed with 5 mg of Coumadin. On 03/03 postoperative day 6, low-dose beta-blockers
were started for the patient along with Farxiga for goals of GDMT. Repeat transthoracic echocardiogram was preformed and it showed that his ejection fraction improved from 20-255 to 35-40%. His INR was 2.29 and was dosed with 2.5 mg of Coumadin
daily. On 03/04 postoperative day 7, patient's current regimen of low-dose beta-michelle, Lasix, and Farxiga was well-tolerated. Unfortunately due to low blood pressures further uptitration of GDMT was not performed. Patient's epicardial wire was
cut at the skin and he was deemed stable for discharge home with follow up with TCNs.
Home medication changes:
see below
Discharge Plan
-
Patient Disposition: Home (Routine Discharge)
Discharge Diagnosis/Procedures: Median sternotomy/AVR (#29 Inspiris Resilia)/ Annular debridement/[facility] MAZE procedure/Exclusion of KHALIDA w/ 35mm AtriClip/Excision of mobile calcium and BAV (sent for microbiologic analysis), by Dr. Allen,
02/25/25
Condition: Good
Diet: Low Cholesterol, 2 Gram Sodium and Restrict fluids to 64 oz
Activity: No strenuous activity
Driving Restrictions: Not until seen by your Dr
Bathing Restrictions: OK to Shower
Blood Work: BMP/CBC/Mg in one week
Other Services: Cardiac Rehab
Specialty Instructions: Weigh Daily- Call MD for wt gain/loss 3 lbs overnight/5 lbs in 1 week
Activity Restrictions/Additional Instructions:
Please call to make appointments for Phase II Cardiac Rehab:
1) [facility]: [phone] (6 min form home)
a) [facility] [place]: (16 min from home): [phone]
2)[facility]: (6 min from home): [phone]
3) [facility]: (6 min form home)
ACTIVITY:
-No strenuous activity: no heavy lifting, pushing, pulling anything over 15 pounds for one month
-continue to use stairs as tolerated
DRIVING RESTRICTIONS:
-No driving for one month or until approved by your surgeon
WOUND CARE:
-Shower daily. Use soap & water.
-No lotions, creams or powders on incision area.
DIET:
-continue a low fat/low cholesterol diet.
-IF you are diabetic, continue carb controlled diet.
CARDIAC REHAB:
-Please make appointment to start in 5-6 weeks with your local hospital program. (See Cardiac Rehabilitation Discharge Booklet).
SPECIALTY INSTRUCTIONS:
-Weigh yourself daily. Call your physician for any weight gain/loss of 3 lbs overnight or 5 lbs in one week.
-REPORT any clicking noise or uneven appearance of your sternum to your surgeon immediately.
-If you smoke, you are instructed to quit. The [place] smoking hotline phone number is [phone]
Referrals:
CT Transitional Care Nurse [Outside]
Referral Note:
The Cardiothoracic Transitional Care Nurse will call you to set up a visit in 1-2 days.
Jannet Botello DO [Family Provider, Family Practice]
Jay Hood MD [Active, Cardiology] - 04/10/25 1:20 pm
Referral Note: This appt is at the [place] Office
[address] [address] [facility]
Em Gonzalez CRNP [Specified Professional Personl, Cardiac Surgery] - 03/24/25 1:45 pm
Additional Discharge Medication Instructions: Please take amiodarone 200mg twice a day for 14 days and then 200mg daily
please weigh yourself everyday while taking lasix and keep track
Prescriptions:
New
amiodarone [Pacerone] 200 mg Tablet
200 mg PO TID Qty: 60 0RF
Rx Instructions:
please take 200mg BID for 14 days and then 200mg daily
warfarin [Jantoven] 2.5 mg Tablet
2.5 mg PO QPM Qty: 30 0RF
acetaminophen 325 mg Tablet
650 mg PO Q4HPRN PRN (Reason: mild pain,headache,temp >101F ) Qty: 0 0RF
furosemide 20 mg Tablet
20 mg PO DAILY Qty: 30 0RF
metoprolol succinate 25 mg Tablet Extended Release 24 Hr
12.5 mg PO BID Qty: 60 0RF
oxycodone 5 mg Tablet
2.5 mg PO Q4HPRN PRN (Reason: Severe pain) Qty: 10 0RF
pantoprazole 40 mg Tablet,Delayed Release (Dr/Ec)
40 mg PO DAILY Qty: 30 0RF
dapagliflozin propanediol 10 mg Tablet
10 mg PO DAILY Qty: 30 0RF
Continued
aspirin 81 mg Tablet
81 mg PO DAILY
levothyroxine 50 mcg Tablet
50 mcg PO DAILY
phenobarbital 64.8 mg Tablet
64.8 mg PO BID
albuterol 90 mcg/actuation Aerosol
90 mcg INHALATION Q4H
Discharge Orders:
Discharge Patient (As Directed); Ordered 03/04/25
Ordered By: Silvana Fam
Care Plan Goals
Care Plan Goals:
Problem: Readiness for enhanced knowledge related to diagnosis and treatment plan
Goal: Understand your diagnosis and treatment plan needs, including medications if applicable.
Instructions: Know your diagnosis, underlying causes and treatment plan options, including medications if applicable. Consult with your health care team to learn about your diagnosis and treatment plan, including medications if applicable.
Discharge Date and Time
Print Language: HONDURAN
[2025-03-04 09:45] VITALS: BP 121/59
--- NOTE | 2025-03-04 09:47 | PTCARENOTE ---
Patient received from overnight caregiver RN; AAOx3, responds spontaneously to RN and follows commands; MECHOOPDA; VSS; Afib on monitor; Epicardial V-wire cut at bedside by CVALIDA Woo; Trace B/L LE edema; +2 DP and +2 radial pulses; Lungs diminished at bases;
Dry, non-productive cough; SpO2 94-98% on RA; Normoactive BS; Patient urinating in bathroom; Surgical incisions intact - Aquacel dressing removed by RN at bedside; PIVx2; See nursing documentation for further information; Patient ambulating in
hallways with cardiac rehab
[2025-03-04 10:19] VITALS: BP 121/59; BP 96/74; PULSE 99
--- NOTE | 2025-03-04 10:31 | W.PN.CD ---
Today's Communication / Plan
-
Agree with discharge
INR therapeutic
Impression / Plan
-
Bicuspid aortic valve with mod-severe aortic stenosis with echo density on MERCEDES possible mobile calcium S/P Median sternotomy/AVR (#29 Inspiris Resilia)/Annular debridement/[facility] MAZE procedure/Exclusion of KHALIDA w/ 35mm AtriClip/Excision (by
Aljeandro, 02/25/25)
- Doing well
HFrEF, EF 20%, severe
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
- but no recent cath (not performed pre-op in setting of echo density)
- CTA did not demonstrate extensive proximal LM/LAD/LCx dz
- consider formal ischemic eval as outpatient
- As outpatient advance GDMT
New atrial fibrillation:
- If AF persists in 3-6 weeks then move to cardioversion
- Short term Amiodarone
- On warfarin
COPD
Subjective: feeling OK
Physical Exam
Vital Signs/Labs
Vital Signs
Temp Pulse Resp BP Pulse Ox
97.9 F 92 18 96/74 97
03/04/25 07:42 03/04/25 09:00 03/04/25 07:42 03/04/25 07:38 03/04/25 09:17
03/03/25 03/04/25 03/05/25
06:59 06:59 06:59
Actual Weight 89.4 kg 88.5 kg
03/03/25 03:48
03/04/25 04:48
PT 26.3 Sec (11.4-14.6) H 03/04/25 04:48
INR 2.41 03/04/25 04:48
APTT 42.5 Sec (23.4-35.0) H 02/25/25 17:33
Magnesium 2.3 mg/dl (1.6-2.3) 03/03/25 03:48
Triglycerides 86 mg/dl (10-149) 02/21/25 20:44
LDL Cholesterol, Calc 52 mg/dl 02/21/25 20:44
VLDL Cholesterol, Calc 17 mg/dl (0-30) 02/21/25 20:44
HDL Cholesterol 46 mg/dl 02/21/25 20:44
TSH 3.07 uIU/ml (0.47-4.68) 02/23/25 03:24
Physical Exam
Constitutional: No acute distress
Cardiovascular: Rhythm/rate is irregular, S1S2 is normal and Rub absent
Respiratory: Respiratory effort normal and Crackles Absent
GI: Soft and Distention absent
Neuro/Psych: Alert
Data Reviewed
-
Date of Service: March 04, 2025
--- NOTE | 2025-03-04 11:34 | PTCARENOTE ---
Patient being discharged home - states full understanding of discharge instructions and has no further questions at this time; Telemetry pack and PIVx2 removed; Patient belongings with patient and spouse; Patient being taken to spouse's vehicle by
wheelchair
== END 2025-03-04 12:15 | disposition home or self-care (01) | DRG 317 ==
LOC: CVICU 20:32
PROVIDERS: Anesthesiology; Clinical Nurse Specialist Acute Care; Internal Medicine Cardiovascular Disease; Nurse Practitioner; Physician Assistant Medical; Student in an Organized Health Care Education/Training Program; ADMITTING PHYSICIAN Thoracic Surgery (Cardiothoracic Vascular Surgery); ATTENDING PHYSICIAN Thoracic Surgery (Cardiothoracic Vascular Surgery); CONSULT PHYSICIAN Internal Medicine Cardiovascular Disease; CONSULT PHYSICIAN Internal Medicine Critical Care Medicine; CONSULT PHYSICIAN Student in an Organized Health Care Education/Training Program; FAMILY PHYSICIAN Family Medicine
PROC: B24BZZ4 Ultrasonography of Heart with Aorta, Transesophageal (ICD-10-PCS; 2025-02-24)
PROC: 02RF08Z Replacement of Aortic Valve with Zooplastic Tissue, Open Approach (ICD-10-PCS; 2025-02-25)
PROC: 5A1221Z Performance of Cardiac Output, Continuous (ICD-10-PCS; 2025-02-25)
PROC: 3E080GC Introduction of Other Therapeutic Substance into Heart, Open Approach (ICD-10-PCS; 2025-02-25)
PROC: 02BF0ZZ Excision of Aortic Valve, Open Approach (ICD-10-PCS; 2025-02-25)
PROC: 02580ZZ Destruction of Conduction Mechanism, Open Approach (ICD-10-PCS; 2025-02-25)
PROC: 02L70CK Occlusion of Left Atrial Appendage with Extraluminal Device, Open Approach (ICD-10-PCS; 2025-02-25)
PROC: 30243K1 Transfusion of Nonautologous Frozen Plasma into Central Vein, Percutaneous Approach (ICD-10-PCS; 2025-02-26)
PROC: 30243N1 Transfusion of Nonautologous Red Blood Cells into Central Vein, Percutaneous Approach (ICD-10-PCS; 2025-02-27)
DX: I35.8 Other nonrheumatic aortic valve disorders (principal); I50.31 Acute diastolic (congestive) heart failure; I49.01 Ventricular fibrillation; I24.89 Other forms of acute ischemic heart disease; I48.92 Unspecified atrial flutter; J98.11 Atelectasis; D62 Acute posthemorrhagic anemia; Q23.81 Bicuspid aortic valve; R74.01 Elevation of levels of liver transaminase levels; D69.6 Thrombocytopenia, unspecified; E86.1 Hypovolemia; E87.70 Fluid overload, unspecified; I45.10 Unspecified right bundle-branch block; E03.9 Hypothyroidism, unspecified; G40.909 Epilepsy, unspecified, not intractable, without status epilepticus; I48.91 Unspecified atrial fibrillation; N40.0 Benign prostatic hyperplasia without lower urinary tract symptoms; J44.9 Chronic obstructive pulmonary disease, unspecified; K21.9 Gastro-esophageal reflux disease without esophagitis; R13.10 Dysphagia, unspecified; Z87.891 Personal history of nicotine dependence; Z79.82 Long term (current) use of aspirin; Z79.890 Hormone replacement therapy; Z88.0 Allergy status to penicillin; Z86.73 Personal history of transient ischemic attack (TIA), and cerebral infarction without residual deficits; Z86.718 Personal history of other venous thrombosis and embolism; Z86.711 Personal history of pulmonary embolism
CPT/HCPCS: 70355; 71045; 71046; 71275; 80048; 80053; 80061; 80076; 80202; 81003; 81015; 82248; 82330; 82565; 82728; 82805; 82810; 82947; 82962; 83036; 83540; 83550; 83605; 83735; 84132; 84302; 84443; 84520; 85014; 85018; 85025; 85027; 85049; 85610; 85730; 86850; 86900; 86901; 86920; 87015; 87040; 87070; 87075; 87102; 87116; 87176; 87205; 87206; 88305; 88311; 93005; 93308; 93312; 93320; 93321; 93325; 93650; 93880; 94002; J0153; J0282; J1250; P9016; P9047; P9059; Q9950; Q9967

== ENCOUNTER → 2025-03-21 11:58 | Outpatient (REF) | payer MEDICARE, OTHER, SELFPAY ==
[2025-03-21 13:52] LABS: Blood Urea Nitrogen 18 mg/dl (9-20); Calcium 9.4 mg/dl (8.4-10.2); Carbon Dioxide 30 mmol/L (22-30); Chloride 101 mmol/L (98-107); Glucose 86 mg/dl (70-99); Potassium 5.0 mmol/L (3.5-5.1); Sodium 140 mmol/L (135-145); eGFR > 60.00
== END ==
LOC: REG 11:58
PROVIDERS: ATTENDING PHYSICIAN Thoracic Surgery (Cardiothoracic Vascular Surgery); FAMILY PHYSICIAN Family Medicine
DX: Z95.2 Presence of prosthetic heart valve (principal)
CPT/HCPCS: 36415; 80048; 93005